=== PATIENT | male | born 1980 | race Caucasian/White ===

== ENCOUNTER → 2016-11-23 | Outpatient (CLI) | payer BC, OTHER ==
[~2016-11-23] MED LIST: ADVIN25/60 INH; CHOL20009 PO; FAMO20TA11 PO; FENO145T26 PO; FLUT50SP14 NAE; INSPMPNVLG; IPRASOL4 INH; LITH1TAB PO; LURA1TAB2 PO; MULT-506 PO; NVLGI SQ; PANC1CAP17 PO; POLY335040 PO; SRQ25 PO; SULF800T23 PO; SYN88
[2016-11-23 17:21] LABS: FERRITIN 84.1 ng/ml (8.0-388.0)
[2016-11-23 17:26] LABS: HEMATOCRIT 41.2 % (42-52)
[2016-11-23 17:48] LABS: URINE APPEARANCE CLEAR (CLEAR); URINE BILIRUBIN NEG (NEG); URINE COLOR YELLOW; URINE EPITHELIAL CELL AUTO 0-5 /lpf (0-5); URINE NITRITE NEG (NEG); URINE PH 6.5 (4.5-7.5); URINE SPECIFIC GRAVITY 1.002 (1.000-1.030); UROBILINOGEN NEG (NEG)
[2016-11-23 17:50] LABS: MANUAL MICROSCOPIC REQUIRED? NO; REVIEW REQ? NO
[2016-11-24 06:12] LABS: ESTIMATED AVERAGE GLUCOSE 189 mg/dl; HA1C FLAG Normal (Normal)
== END | disposition home or self-care (01) ==
LOC: C.LABBC 13:53
PROVIDERS: ATTEND Nurse Practitioner Adult Health
DX: E10.65 Type 1 diabetes mellitus with hyperglycemia (principal); E03.9 Hypothyroidism, unspecified; E06.3 Autoimmune thyroiditis; E55.9 Vitamin D deficiency, unspecified; E78.1 Pure hyperglyceridemia; D64.9 Anemia, unspecified; R35.0 Frequency of micturition

== ENCOUNTER → 2017-05-11 | Outpatient (CLI) | payer BC, OTHER ==
[2017-05-11 13:13] LABS: ESTIMATED AVERAGE GLUCOSE 180 mg/dl; HA1C FLAG Normal (Normal)
== END | disposition home or self-care (01) ==
LOC: C.LAB1850 10:51
PROVIDERS: ATTEND Nurse Practitioner Adult Health
DX: E10.649 Type 1 diabetes mellitus with hypoglycemia without coma (principal)

== ENCOUNTER → 2017-08-17 | Outpatient (CLI) | payer BC, OTHER ==
[2017-08-18 06:58] LABS: ESTIMATED AVERAGE GLUCOSE 157 mg/dl; HA1C FLAG Normal (Normal)
== END | disposition home or self-care (01) ==
LOC: C.LAB1850 16:03
PROVIDERS: ATTEND Nurse Practitioner Adult Health
DX: E10.649 Type 1 diabetes mellitus with hypoglycemia without coma (principal); E03.9 Hypothyroidism, unspecified; E06.3 Autoimmune thyroiditis

== ENCOUNTER → 2017-10-07 | Outpatient (CLI) | payer BC, OTHER | END | disposition home or self-care (01) | LOC: C.LABSPEC 13:09 | PROVIDERS: ATTEND Internal Medicine Pulmonary Disease | DX: E84.9 Cystic fibrosis, unspecified (principal); K86.89 Other specified diseases of pancreas; K90.9 Intestinal malabsorption, unspecified ==

== ENCOUNTER → 2017-10-15 | Outpatient (CLI) | payer BC, OTHER ==
[2017-10-15 13:03] LABS: BASO % 0.7 %; BASO ABS # 0.04 K/uL (0-0.2); EOS % 3.1 %; EOS ABS # 0.18 K/uL (0-0.5); HEMATOCRIT 43.6 % (42-52); HEMOGLOBIN 14.4 g/dL (14.0-18.0); LYMPH % 34.1 %; LYMPH ABS # 1.99 K/uL (1.2-3.4); MEAN CELL VOLUME 89.9 fL (80-100); MEAN CORPUSCULAR HEMOGLOBIN 29.7 pg (25-34); MEAN PLATELET VOLUME 10.4 fL (7.4-10.4); MONO % 6.3 %; MONO ABS # 0.37 K/uL (0.11-0.59); NEUT % 55.8 %; NEUT ABS # 3.25 K/uL (1.4-6.5); PLATELET COUNT 378 K/uL (130-400); RED CELL DISTRIBUTION WIDTH CV 13.1 % (11.5-14.5); RED CELL DISTRIBUTION WIDTH SD 42.4 fL (36.4-46.3); WHITE BLOOD COUNT 5.83 K/uL (4.8-10.8)
[2017-10-15 13:12] LABS: INR 1.1 (0.9-1.1)
[2017-10-15 13:18] LABS: HEMOGLOBIN A1C 6.8 % (4.5-5.6)
== END | disposition home or self-care (01) ==
LOC: C.LAB1850 10:49
PROVIDERS: ATTEND Internal Medicine Pulmonary Disease
DX: E84.9 Cystic fibrosis, unspecified (principal); K86.89 Other specified diseases of pancreas; K90.9 Intestinal malabsorption, unspecified

== ENCOUNTER → 2017-12-07 | Outpatient (CLI) | payer BC, OTHER ==
[2017-12-07 17:51] LABS: BLOOD UREA NITROGEN 10 mg/dl (7-18); CARBON DIOXIDE 21 mmol/L (21-32); CREATININE 1.33 mg/dl (0.60-1.40); GLUCOSE 230 mg/dl (70-99); POTASSIUM 3.8 mmol/L (3.5-5.1); SODIUM 137 mmol/L (136-145)
== END | disposition home or self-care (01) ==
LOC: C.LAB1850 16:40
PROVIDERS: ATTEND Psychiatry & Neurology Psychiatry
DX: Z79.899 Other long term (current) drug therapy (principal)

== ENCOUNTER → 2017-12-30 | Outpatient (CLI) | payer BC, OTHER | END | disposition home or self-care (01) | LOC: C.LAB1850 14:38 | PROVIDERS: ATTEND Psychiatry & Neurology Psychiatry | DX: Z79.899 Other long term (current) drug therapy (principal) ==

== ENCOUNTER → 2018-02-14 | Outpatient (CLI) | payer BC, OTHER ==
[2018-02-14 16:29] LABS: CREATININE RANDOM URINE 49.3 mg/dl
== END | disposition home or self-care (01) ==
LOC: C.LAB1850 14:09
PROVIDERS: ATTEND Nurse Practitioner Adult Health
DX: E10.9 Type 1 diabetes mellitus without complications (principal); E03.9 Hypothyroidism, unspecified

== ENCOUNTER 2019-10-20 12:34 | Inpatient (IN) ==
[2019-10-20] MEDS ORDERED: SODIUM CHLORIDE 0.9% 1000ML 1,000 ML IV SCH (13:00)
[2019-10-20] MEDS: MAGNESIUM SULFATE / D5W 1 GM/100 ML BAG IV SCH ×2 (13:25→14:30)
[2019-10-20] MEDS ORDERED: SODIUM BICARB 8.4% INJ 50 MEQ/50 ML SYR IV STA (13:29)
[2019-10-20 13:30] LABS: Basophils # (auto) 0.03 K/uL (0-0.2); Basophils % (auto) 0.6 %; Eosinophils # (auto) 0.08 K/uL (0-0.5); Eosinophils % (auto) 1.6 %; Hematocrit (blood only) 36.2 % (42-52); Hemoglobin 12.1 g/dL (14.0-18.0); Immature Granulocytes # (auto) 0.01 K/uL (0.00-0.02); Immature Granulocytes % (auto) 0.2 %; Lymphocytes # (auto) 1.39 K/uL (1.2-3.4); Lymphocytes % (auto) 28.3 %; Mean Corpuscular Hemoglobin 29.6 pg (25-34); Mean Corpuscular Hgb Conc 33.4 g/dL (32-36); Mean Corpuscular Volume 88.5 fL (80-100); Mean Platelet Volume 9.5 fL (7.4-10.4); Monocytes # (auto) 0.21 K/uL (0.11-0.59); Monocytes % (auto) 4.3 %; Platelet Count 252 K/uL (130-400); RDW Standard Deviation 41.9 fL (36.4-46.3); Red Blood Count 4.09 M/uL (4.7-6.1); White Blood Count 4.92 K/uL (4.8-10.8)
[2019-10-20] MEDS ORDERED: LORazepam 0.5 MG/1 ML VIAL IV STA (13:39)
[2019-10-20 13:40] LABS: Appearance Urine Clear (Clear); Bilirubin Urine Negative (Negative); Blood Urine Negative (Negative); Color Urine Yellow; Glucose Urine UA Negative (Negative); Ketones Urine Negative (Negative); Leukocyte Esterase Urine Trace (Negative); Nitrite Urine Negative (Negative); Protein Urine Negative (Negative); Specific Gravity Urine 1.005 (1.000-1.030); Urobilinogen Urine Negative (Negative)
[2019-10-20 13:59] LABS: Acetaminophen < 2 ug/ml (10-30); Salicylate 1.8 mg/dl (2.8-20)
[2019-10-20 14:00] LABS: Bacteria Urine Negative (Negative); Epithelial Cell Urine 0-5 /lpf (0-5); RBC Urine 0-4 /hpf (0-4)
[2019-10-20 14:01] LABS: Albumin Level 3.7 gm/dl (3.4-5.0); BUN Creatinine Ratio 10.5 (10-20); Calcium 9.7 mg/dl (8.5-10.1); Creatinine Clr Calc Pharmacy 101.8 ml/min; Est GFR (African American) 95.8; Est GFR (Non-African American) 82.6; Potassium 3.3 mmol/L (3.5-5.1)
[2019-10-20 14:04] LABS: Albumin Globulin Ratio 1.2 (0.9-2); Bilirubin,Total 0.3 mg/dl (0.2-1); Total Protein 6.7 gm/dl (6.4-8.2)
[2019-10-20 14:27] LABS: Amphetamines+Metham, Urine Neg (Neg); Barbiturates, Urine Neg (Neg); Benzodiazepine, Urine Neg (Neg); Cocaine, Urine Neg (Neg); MDMA (Ecstacy), Urine Pos (Neg); Methadone, Urine Neg (Neg); Opiate, Urine Neg (Neg); Phencyclidine, Urine Neg (Neg)
[2019-10-20] MEDS ORDERED: PNEUMOCOCCAL ADMINISTRATION CHARGE ONE (15:41)
[2019-10-20] MEDS ORDERED: PNEUMOCOCCAL POLYSACCHARIDES 25 MCG/0.5 ML VIAL/SYR IM ONE (15:41)
[2019-10-20] MEDS ORDERED: PHARMACY GLYCEMIC MGMT CONSULT STA (16:05)
--- NOTE | 2019-10-20 16:11 | History & Physical Report ---
Date of Service October 20, 2019 Assessment & Plan (1) Drug overdose: 400mg x 15 Seroquel. Intentional overdose after argument with his . Thought to have reached his peak of 3 hours in ER however when seen he was drowsy but with a gag reflex. On arrival to PCU patient had no gag reflex. Discussed with Dr Wilcox who evaluated patient at bedside and patient subsequently transferred to ICU. ABG. Half life 6 hours. Expected time till fully out of his system 30 hours. Discussed with poison control and plan to repeat EKG now and repeat Mg level after 2g Mg sulphate given. (2) Prolonged QT interval: QTc 571ms on admission secondary to multiple QTc prolonging psychiatric meds. Hold all QTc prolonging agents. Repeat EKG in AM. Aim Mg > 2, K > 4 (3) Suicide attempt: Consult psychiatry once awake. (4) Encephalopathy: Toxic encephalopathy secondary to Seroquel overdose. Appreciate ICU management of compromised airway since he no longer has a gag reflex. (5) Cystic fibrosis: At higher risk of PNA. Restart home meds once awake. (6) Controlled type 1 diabetes mellitus, with long-term current use of insulin: Currently on insulin pump 0.75 units/hr, 105 units left in pump. Consult pharmacy glycemic control for correction coverage. (7) Hypothyroidism: Continue levothyroxine once awake. Switch to IV if still altered in AM. (8) Major depression: Holding all medication at this time secondary to encephalopathy. (9) DVT prophylaxis: Young age. Expected short stay. SCDs (10) Discharge planning issues: Expected transfer to psychiatric abdi once medically stable due to intentional overdose. History of Present Illness Chief Complaint: Intentional overdose Primary Care Provider: Maxine Cortez MD Elio Arguelles is a 39 year old male with T1DM, cystic fibrosis, hypothyroidism, Bipolar disorder, Major depression and Schizoaffective disorder who presents to the ER due to intentional overdose of Seroquel after an argument with his . 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 He and his got in an argument about buying a truck today and the patient took approximately 15 pills of Seroquel 400mg around 11:30am. When he presented to the ER approximately 1 hour after taking the pills he was conversational. When patient seen by myself in the ER he was drowsy but rousable to pain. ER workup including positive urine MDMA (?due to wellbutrin), negative salicylates, acetaminophen and alcohol. Mild hypokalemia 3.3. Ativan was advised by human performance professor although this was held as patient became more drowsy. 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 Recently started Trikafta in September. Takes [place] (aztreonam) inhaler but not every day. Tobramycin only when sick. Alternates Keflex and Bactrim (unknown how often) for PNA prophylaxis. Zenpep 5-6 pills TID for pancreatic enzyme replacement. Noted history of small bowel obstruction. T1DM - has insulin pump running at 0.75 units/hr when seen. Continuous subcutaneous glucose monitor on left abdomen - does not automatically feed his insulin pump as per his . Major depression / Bipolar disorder - as above recently his depression has increased. Recently increased wellbutrin on Tuesday to help with this. Allergies Allergy/AdvReac Type Severity Reaction Status Date / Time No Known Allergies Allergy Verified 10/20/19 13:20 Home Medications Home Medications Medication Instructions Recorded Confirmed Type Novolog U-100 Insulin aspart 100 See Rx Instructions SQ DAILY 90 05/21/19 10/20/19 Rx unit/mL subcutaneous solution Days #9 vial NS cholecalciferol (vitamin D3) 125 5,000 units PO DAILY cap 08/13/19 10/20/19 History mcg (5,000 unit) capsule levothyroxine 75 mcg tablet 75 mcg PO DAILY tab 08/13/19 10/20/19 History multivitamin 1 tab PO DAILY 08/13/19 10/20/19 History bupropion HCl 300 mg PO DAILY 08/23/19 10/20/19 History cephalexin [Keflex] 500 mg PO BID 08/23/19 10/20/19 History famotidine 20 mg PO DAILY 08/23/19 10/20/19 History noasyg-zjsuitpw-tuniqju [Zenpep] 0 cap PO TIDM 08/23/19 10/20/19 History lithium carbonate [Lithobid] 300 mg PO QAM 08/23/19 10/20/19 History lithium carbonate [Lithobid] 600 mg PO HS 08/23/19 10/20/19 History lurasidone [Latuda] 160 mg PO HS 08/23/19 10/20/19 History quetiapine [Seroquel] 200 mg PO HS 08/23/19 10/20/19 History sulfamethoxazole-trimethoprim 1 tab PO Q12 08/23/19 10/20/19 History [Bactrim DS] varenicline [Chantix] 1 mg PO DAILY 08/23/19 10/20/19 History fenofibrate nanocrystallized 145 145 mg PO DAILY #90 tab 09/04/19 10/20/19 Rx mg tablet upahhejjgoa-rjopxrbabh-uxoslar 1 ea PO BID 10/20/19 10/20/19 History [Trikafta] Past Med/Surg History Medical History Bipolar disorder (Chronic) Controlled type 1 diabetes mellitus, with long-term current use of insulin Cystic fibrosis (Chronic) Diabetes (Acute) Hypercalcemia (Chronic) Hypertriglyceridemia (Chronic) Hypothyroidism (Chronic) Overweight (Chronic) Psychosis Schizoaffective disorder (Chronic) Small bowel obstruction (Acute) Strangulation of omentum (Acute) Ventral hernia (Acute) Surgical History No pertinent past surgical history Family History Mother Bipolar disorder Anxiety Hard of hearing Depression Cancer Hypertension Father Diabetes Hypertension Hard of hearing Lung cancer Brother Depression Grandfather Myocardial infarction Other No significant family history Social History Preferred Language: Nepali Communication Ability: sleeping Chain Puller Required: No Beliefs That Will Affect Care: None marital status: Current Living Situation: Spouse current occupational status: employed 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 Feels Safe at Home: Yes Smoking Status: Former smoker Age Started Using Tobacco: 15 ; Age Quit Using Tobacco: 34 ; packs per day: 1 ; Second Hand Exposure: No ; Hx Alcohol Use: No Hx Substance Use: Yes substance use type: prescription drug Substance Use Type Other:: overdose seroquel Last Used Substance: Just Prior to Arrival Review of Systems Review of Systems: Unobtainable due to reduced consciousness Physical Exam Constitutional: well developed and well nourished; no acute distress Eyes: PERRL, conjunctivae normal, anicteric sclerae ENMT: Ears: no external ear abnormality Nose: no external nose abnormality Mouth: + dry oral mucous membranes Neck: trachea midline and + thick neck; no tracheal deviation Respiratory: normal respiratory effort; no respiratory distress, no labored breathing, no retractions and does not use accessory muscles Auscultation: lungs clear to auscultation bilaterally; no diminished lung sounds, no crackles, no rales and no rhonchi Cardiovascular: RRR, no murmur, no edema Gastrointestinal (Abdomen): Inspection/Auscultation: abdomen normal to inspection (insulin pump on left, CGM on right), + abdomen distended ( reports at baseline) and normal bowel sounds; no abdominal wall ecchymosis Percussion/Palpation: abdomen soft; abdomen nontender, no guarding and abdomen not rigid Skin: no rashes, warm and dry Neurologic: awake (rousable to pain); no focal motor deficits Psychiatric: Orientation: alert (to pain); + not oriented x 3 Results & Data Vital Signs (Past 12 Hours) Vital Signs Temp Pulse Resp BP Pulse Ox 10/20/19 14:31 124 H 14 98 10/20/19 14:30 124 H 14 125/72 98 10/20/19 14:00 129 H 15 122/74 96 10/20/19 13:30 128 H 17 143/80 H 99 10/20/19 13:05 132 H 16 119/77 99 10/20/19 13:01 130 H 16 97 10/20/19 12:38 36.7 C 149 H 18 129/90 98 Code Status & VTE Plan Code Status Full VTE Prophylaxis Plan VTE Prophylaxis will be ordered: Yes Reason for no VTE drug order: Treatment not indicated PG Care Time/CCT Total # of Minutes Spent Total Time Spent with Patient: Total time spent is greater than 50% in coordination of care (as documented) at patient's floor/unit and/or counseling patient: Coding Level of Care Code 71764 Initial Inpt Care Lvl 3 Diagnoses Drug overdose T50.902A Encounter type: initial encounter Injury intent: intentional self-harm Prolonged QT interval R94.31 Suicide attempt T14.91XA Encephalopathy G93.40 Cystic fibrosis E84.9 Controlled type 1 diabetes mellitus, with long-term current use of insulin E10.9 Hypothyroidism E03.9 Hypothyroidism type: acquired Major depression F33.2 Active/Remission status: currently active Major depression episode severity: severe Major depression recurrence: recurrent Psychotic features: without psychotic features DVT prophylaxis Z29.9 Discharge planning issues Z02.9 (1) Major depression Active/Remission status: currently active Major depression episode severity: severe Major depression recurrence: recurrent Psychotic features: without psychotic features Qualified Code(s): F33.2 - Major depressive disorder, recurrent severe without psychotic features (2) Hypothyroidism Hypothyroidism type: acquired Qualified Code(s): E03.9 - Hypothyroidism, unspecified (3) Drug overdose Encounter type: initial encounter Injury intent: intentional self-harm Qualified Code(s): T50.902A - Poisoning by unspecified drugs, medicaments and biological substances, intentional self-harm, initial encounter
[2019-10-20] MEDS ORDERED: LACTATED RINGER'S 1,000 ML IV ONE (16:39)
[2019-10-20] MEDS ORDERED: PHARMACY GLYCEMIC MGMT CONSULT PRN (16:42)
--- NOTE | 2019-10-20 16:57 | Critical Care Consultation ---
Date of Consultation October 20, 2019 Assessment & Plan (1) Drug overdose: Impression: 39-year-old male with history of cystic fibrosis and associated diabetes admitted now with intentional Seroquel overdose. Transferred to the ICU for altered mental status and observation. Recommendations: 1. Seroquel overdose: We will continue to monitor QTC. Supportive care at this point time. Avoid any other medications which may prolong QTC. The patient's blood gas suggest that he does not require urgent intubation. We will follow closely for respiratory depression. 2. History of cystic fibrosis. No respiratory issues currently other than respiratory depression. Will hold all of his medications pending improvement in his mental status. He will require psychiatry evaluation and custody pending mental health evaluation. Will place on suicide precautions as well. 3. Depression: Holding all antidepressants pending improvement in the patient's mental status. 4. Advised the patient's that if intubation should become necessary would likely only be a short-term thing. Hopefully we can support him without having to invoke invasive respiratory adjuvants. Above recommendations and plan were discussed with the patient's at bedside as well as with the admitting hospitalist service. Will observe in the ICU (2) Prolonged QT interval: (3) Suicide attempt: (4) Encephalopathy: History of Present Illness Attending Physician: Choco Reddy MD History of Present Illness Possible hospitalist service to evaluate this patient with Seroquel overdose and altered mental status. History is obtained from discussion with hospitalist as well as with the patient's at bedside. Patient is unable to provide any history due to being obtunded. Patient is a 39-year-old male with a history of cystic fibrosis and diabetes. He apparently had an intentional overdose of Seroquel earlier today. He apparently been in a verbal altercation with his . He had increasing depressive symptoms. His is quite clear that this was an intentional suicide attempt. He does have a history of depression. He has had issues from a GI standpoint with his cystic fibrosis and has had a Hollie as well as the previous G-tube. He has had issues with bowel obstruction. He is also had multiple admissions for his lung disease. He was recently started on ivacaftor combination therapy. He is on lithium Seroquel and Latuda as well. He alternates Keflex and Bactrim for prophylaxis of his lung issues. Patient's QTC on presentation was approximately 500. He was initially felt to be improving and admitted to the PCU. I was contacted by the hospitalist who noted the patient had sonorous respirations and a decreasing level of consciousness which prompted transfer to the ICU. On arrival to the ICU his blood gas showed a pH of 7.37 with a PCO2 34 and a PO2 of 69. Allergies Allergy/AdvReac Type Severity Reaction Status Date / Time No Known Allergies Allergy Verified 10/20/19 13:20 Home Medications Home Medications Medication Instructions Recorded Confirmed Type Novolog U-100 Insulin aspart 100 See Rx Instructions SQ DAILY 90 05/21/19 10/20/19 Rx unit/mL subcutaneous solution Days #9 vial NS cholecalciferol (vitamin D3) 125 5,000 units PO DAILY cap 08/13/19 10/20/19 History mcg (5,000 unit) capsule levothyroxine 75 mcg tablet 75 mcg PO DAILY tab 08/13/19 10/20/19 History multivitamin 1 tab PO DAILY 08/13/19 10/20/19 History bupropion HCl 300 mg PO DAILY 08/23/19 10/20/19 History cephalexin [Keflex] 500 mg PO BID 08/23/19 10/20/19 History famotidine 20 mg PO DAILY 08/23/19 10/20/19 History lisxhc-ukqblond-qhzatrk [Zenpep] 0 cap PO TIDM 08/23/19 10/20/19 History lithium carbonate [Lithobid] 300 mg PO QAM 08/23/19 10/20/19 History lithium carbonate [Lithobid] 600 mg PO HS 08/23/19 10/20/19 History lurasidone [Latuda] 160 mg PO HS 08/23/19 10/20/19 History quetiapine [Seroquel] 200 mg PO HS 08/23/19 10/20/19 History sulfamethoxazole-trimethoprim 1 tab PO Q12 08/23/19 10/20/19 History [Bactrim DS] varenicline [Chantix] 1 mg PO DAILY 08/23/19 10/20/19 History fenofibrate nanocrystallized 145 145 mg PO DAILY #90 tab 09/04/19 10/20/19 Rx mg tablet kxycqshhxoz-uwsicchswu-jzbsvlc 1 ea PO BID 10/20/19 10/20/19 History [Trikafta] Patient History Medical History Bipolar disorder (Chronic) Controlled type 1 diabetes mellitus, with long-term current use of insulin Cystic fibrosis (Chronic) Diabetes (Acute) Hypercalcemia (Chronic) Hypertriglyceridemia (Chronic) Hypothyroidism (Chronic) Overweight (Chronic) Psychosis Schizoaffective disorder (Chronic) Small bowel obstruction (Acute) Strangulation of omentum (Acute) Ventral hernia (Acute) Surgical History No pertinent past surgical history Family History Mother Bipolar disorder Anxiety Hard of hearing Depression Cancer Hypertension Father Diabetes Hypertension Hard of hearing Lung cancer Brother Depression Grandfather Myocardial infarction Other No significant family history Social History Preferred Language: Ecuadorean Communication Ability: sleeping Marble Carver Required: No Beliefs That Will Affect Care: None marital status: Current Living Situation: Spouse current occupational status: employed 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 Other Information That Helps Us Care for You: No Feels Safe at Home: Yes Safety Concerns: Feels Safe At This Time Smoking Status: Former smoker Age Started Using Tobacco: 15 ; Age Quit Using Tobacco: 34 ; packs per day: 1 ; Do You Dip or Chew Tobacco: No ; Second Hand Exposure: No ; Tobacco Cessation Education Requested by Patient: No Hx Alcohol Use: No Hx Substance Use: Yes substance use type: prescription drug Substance Use Type Other:: overdose seroquel Last Used Substance: Just Prior to Arrival Review of Systems Review of Systems: Unobtainable due to reduced consciousness Physical Exam Constitutional: well developed, + altered mental status and + lethargic Neck: trachea midline, no thyromegaly Respiratory: normal respiratory effort, lungs clear to auscultation Cardiovascular: RRR, no murmur, no edema Gastrointestinal (Abdomen): normal bowel sounds, soft, nontender, no hepatosplenomegaly Musculoskeletal: Extremities: extremities normal to inspection Skin: no rashes, warm and dry Neurologic: Nonfocal exam Lymphatic: no cervical lymphadenopathy Results & Data Vital Signs (Past 12 Hours) Vital Signs Temp Pulse Pulse Resp BP BP Pulse Ox 10/20/19 16:00 123 H 18 122/75 98 10/20/19 14:31 124 H 14 98 10/20/19 14:30 124 H 14 125/72 98 10/20/19 14:00 129 H 15 122/74 96 10/20/19 13:30 128 H 17 143/80 H 99 10/20/19 13:05 132 H 16 119/77 99 10/20/19 13:01 130 H 16 97 10/20/19 12:38 36.7 C 149 H 18 129/90 98 Laboratory Results 10/20/19 13:12 10/20/19 13:12 Diagnostic Findings No imaging Coding Level of Care Code Critical Care 1st 30-74 mins Diagnoses Drug overdose T50.902A Encounter type: initial encounter Injury intent: intentional self-harm Prolonged QT interval R94.31 Suicide attempt T14.91XA Encephalopathy G93.40 Time Spent (min) 40 Comment 40 minutes critical care time evaluating managing and stabilizing critically ill patient with significant possibility of clinical deterioration (1) Drug overdose Encounter type: initial encounter Injury intent: intentional self-harm Qualified Code(s): T50.902A - Poisoning by unspecified drugs, medicaments and biological substances, intentional self-harm, initial encounter
[2019-10-20] MEDS ORDERED: LIPASE PROTEASE AMYLASE PO SCH (17:00)
--- NOTE | 2019-10-20 17:03 | Emergency Department Note ---
Entered by Rolando Yates acting as a scribe for History of Present Illness General Chief complaint: Overdose (Intentional) Stated complaint: TOOK WHOLE BOTTLE OF PILLS Time Seen by Provider: 10/20/19 12:45 Source: patient and family History of Present Illness Onset (ago): hour(s) 1 Quality: + other (intentional Seroquel overdose) Exacerbated By: + other (arguing with ) Associated symptoms: + denies other symptoms (current pain, fevers, recent illness, alcohol use, drug use, and cutting himself) and + other (heavy legs, thought of slurred speech, lightheaded) The patient is a 39 y/o male who presents to the ED w/ CC of an intentional Seroquel overdose that occurred one hour ago. The patient's states he is going through some tough times and thinks he needs some changes to his medication. She reports he was evaluated by his PCP and had his Wellbutrin incre ased. She states the increased medication was helping with his mood swings this week, but he is still having them. The notes he was really upset earlier today when they were talking about getting a truck. She states he then took a bunch of Seroquel pills. The patient reports he took the medication about an hour prior to arrival. He notes he took about 16, 400mg Seroquel pills and is not sure if they are XR or not. The patient states at the time he did want to hurt himself, but he currently does not want to hurt himself. He reports he is currently lightheaded with heavy legs. He states the last time he tried to hurt himself was 10-15 years ago. The patient denies current pain, fevers, recent illness, alcohol use, drug use, and cutting himself. Home Medications Home Medications Medication Instructions Recorded Confirmed Type Novolog U-100 Insulin aspart 100 See Rx Instructions SQ DAILY 90 05/21/19 10/20/19 Rx unit/mL subcutaneous solution Days #9 vial NS cholecalciferol (vitamin D3) 125 5,000 units PO DAILY cap 08/13/19 10/20/19 History mcg (5,000 unit) capsule levothyroxine 75 mcg tablet 75 mcg PO DAILY tab 08/13/19 10/20/19 History multivitamin 1 tab PO DAILY 08/13/19 10/20/19 History bupropion HCl 300 mg PO DAILY 08/23/19 10/20/19 History cephalexin [Keflex] 500 mg PO BID 08/23/19 10/20/19 History famotidine 20 mg PO DAILY 08/23/19 10/20/19 History kgsbyv-ikykobly-akrncvz [Zenpep] 0 cap PO TIDM 08/23/19 10/20/19 History lithium carbonate [Lithobid] 300 mg PO QAM 08/23/19 10/20/19 History lithium carbonate [Lithobid] 600 mg PO HS 08/23/19 10/20/19 History lurasidone [Latuda] 160 mg PO HS 08/23/19 10/20/19 History quetiapine [Seroquel] 200 mg PO HS 08/23/19 10/20/19 History sulfamethoxazole-trimethoprim 1 tab PO Q12 08/23/19 10/20/19 History [Bactrim DS] varenicline [Chantix] 1 mg PO DAILY 08/23/19 10/20/19 History fenofibrate nanocrystallized 145 145 mg PO DAILY #90 tab 09/04/19 10/20/19 Rx mg tablet siqabavaxah-djrckqqvqo-otzzsdz 1 ea PO BID 10/20/19 10/20/19 History [Trikafta] Allergies Allergy/AdvReac Type Severity Reaction Status Date / Time No Known Allergies Allergy Verified 10/20/19 13:20 Past Med/Surg History Medical History Bipolar disorder (Chronic) Controlled type 1 diabetes mellitus, with long-term current use of insulin Cystic fibrosis (Chronic) Diabetes (Acute) Hypercalcemia (Chronic) Hypertriglyceridemia (Chronic) Hypothyroidism (Chronic) Overweight (Chronic) Psychosis Schizoaffective disorder (Chronic) Small bowel obstruction (Acute) Strangulation of omentum (Acute) Ventral hernia (Acute) Surgical History No pertinent past surgical history Family History Mother Bipolar disorder Anxiety Hard of hearing Depression Cancer Hypertension Father Diabetes Hypertension Hard of hearing Lung cancer Brother Depression Grandfather Myocardial infarction Other No significant family history Social History Preferred Language: Kinyarwanda Communication Ability: sleeping Biofuels Processing Technician Required: No Beliefs That Will Affect Care: None marital status: Current Living Situation: Spouse current occupational status: employed current occupation: [employer] Other Information That Helps Us Care for You: No Feels Safe at Home: Yes Safety Concerns: Feels Safe At This Time Smoking Status: Former smoker Age Started Using Tobacco: 15 ; Age Quit Using Tobacco: 34 ; packs per day: 1 ; Do You Dip or Chew Tobacco: No ; Second Hand Exposure: No ; Tobacco Cessation Education Requested by Patient: No Hx Alcohol Use: No Hx Substance Use: Yes substance use type: prescription drug Substance Use Type Other:: overdose seroquel Last Used Substance: Just Prior to Arrival Review of Systems See HPI for pertinent positives & negatives. and A total of 10 systems reviewed and were otherwise negative Physical Exam Vital Signs Vital Signs - 24 hr 10/20/19 12:38 10/20/19 13:01 10/20/19 13:05 Temperature 36.7 C Temperature Source Oral Pulse Rate 149 H 130 H 132 H Pulse Rate from SpO2 Sensor 132 H Pulse Rhythm Regular Respiratory Rate 18 16 16 Respiratory Effort / Characteristics Non-Labored Spontaneous Respiratory Depth Normal Blood Pressure 129/90 119/77 Blood Pressure Mean 103 89 Pulse Oximetry 98 97 99 Oxygen Delivery Method Room Air Room Air Room Air Sepsis Recent Fever Within 48 Hours No Sepsis Action Taken by Nursing No Action Required 10/20/19 13:30 10/20/19 14:00 10/20/19 14:30 Temperature Temperature Source Pulse Rate 128 H 129 H 124 H Pulse Rate from SpO2 Sensor 128 H 129 H 124 H Pulse Rhythm Respiratory Rate 17 15 14 Respiratory Effort / Characteristics Respiratory Depth Blood Pressure 143/80 H 122/74 125/72 Blood Pressure Mean 91 94 86 Pulse Oximetry 99 96 98 Oxygen Delivery Method Room Air Room Air Room Air Sepsis Recent Fever Within 48 Hours Sepsis Action Taken by Nursing 10/20/19 14:31 Temperature Temperature Source Pulse Rate 124 H Pulse Rate from SpO2 Sensor 125 H Pulse Rhythm Respiratory Rate 14 Respiratory Effort / Characteristics Respiratory Depth Blood Pressure Blood Pressure Mean Pulse Oximetry 98 Oxygen Delivery Method Sepsis Recent Fever Within 48 Hours Sepsis Action Taken by Nursing Constitutional: Vital signs reviewed. Eyes: Pupils are equal round reactive to light. Conjunctiva are noninjected. ENT: Pharynx is clear without erythema or exudate. Mucous membranes are moist. Neck supple without meningeal signs. Respiratory: Clear to auscultation bilaterally. Breath sounds are equal bilaterally. Cardiovascular: Tachycardic rate and regular rhythm. No rubs or gallops. GI: Soft, nondistended and nontender. Bowel sounds are present. Musculoskeletal: No peripheral edema. No lower extremity tenderness. Integumentary: No cyanosis. Neurological: The patient is awake and alert. No focal deficits. Psychiatric: Guarded affect and anxious appearing. Course Course 1247: Past medical records reviewed. The patient was evaluated in room A08. A complete history and physical exam was performed. 1315: I discussed the patient's case with [facility]. I was a dvised to give the patient IV magnesium for the QTc prolongation. 1321: I reevaluated the patient. He does not feel anxious and did not take anything besides the Seroquel. I discussed the consult and treatment plan. 1327: I called Poison Control back and requested to speak with a flower grader about the patient's EKG. 1329: I spoke with Dr. Steele, Poison Control. She recommends I wait until the p atient's interval reaches 120ms before treated him with bicarb. She notes I should manage the patient's symptoms with benzos and fluids for now. 1428: The patient is sleeping. His heart rate is 124 and normotensive. The Ativan was held due to the patient's somnolence and snoring respirations. I dis cussed his results with the and the treatment plan for admission as well as the flower grader recommendation. The patient and are in agreement with the plan. 1429: I reviewed the patient's case with Dr. Ferrell, [facility] Hospitalist. She will evaluate the patient for further management. 1519: I reevaluated the patient. He is sleeping with a heart rate of 120 and a stable blood pressure. Dr. Reddy has assessed the patient, and he will transferred to the PCU. Administered Medications Discontinued Medications Sodium Chloride (Nss 1000ml) 1,000 mls @ 999 mls/hr IV .Q1H1M JAVIER Stop: 10/20/19 14:00 Last Infusion: 10/20/19 14:18 Dose: 0 mls/hr Documented by: [id number] Admin: 10/20/19 13:16 Dose: 999 mls/hr Documented by: [id number] Magnesium Sulfate/Dextrose (Magnesium Sulfate / D5w) 1 gm in 100 mls @ 100 mls/hr IV Q1H JAVIER Stop: 10/20/19 15:29 Last Infusion: 10/20/19 16:07 Dose: 0 mls/hr Documented by: [id number] Admin: 10/20/19 14:30 Dose: 100 mls/hr Documented by: [id number] Infusion: 10/20/19 14:30 Dose: 0 mls/hr Documented by: [id number] Admin: 10/20/19 13:25 Dose: 100 mls/hr Documented by: [id number] Lorazepam (Ativan) 0.5 mg in 1 mls @ 1 mls/min IV NOW STA Stop: 10/20/19 13:40 Last Admin: 10/20/19 16:04 Dose: Not Given Documented by: [id number] Sodium Bicarbonate (Sodium Bicarbonate 8.4%) 50 meq IV NOW STA Stop: 10/20/19 13:30 Last Admin: 10/20/19 13:32 Dose: 50 meq Documented by: [id number] Critical Care Time Critical Care Time: Yes Total Critical Care Time: 40 I have personally spent 40 minutes of critical care time in the direct management of this patient. This includes bedside care, interpretation of diagnostic studies, and testing, discussion with consultants, patient, and family members, and other required patient management activities. This 40 minutes is in excess of all separately billable procedures. Medical Decision Making Differential Diagnosis Differential diagnosis includes: overdose, suicide attempt, mood disorder, alcohol dependence, drug dependence, anxiety. Medical Records Attestation: I reviewed the patient's medical records. I did perform a limited focused review of portions of the patient's old chart on the electronic medical record. The patient has had no recent pertinent visits to this hospital. Home Medications Current Medication List: was personally reviewed by me Laboratory Data Attestation: I reviewed the patient's lab results. Result diagrams: 10/20/19 13:12 10/20/19 13:12 Lab Results 10/20/19 10/20/19 10/20/19 Range/Units 12:48 12:48 13:12 WBC (4.8-10.8) K/uL RBC (4.7-6.1) M/uL Hgb (14.0-18.0) g/dL Hct (42-52) % MCV (80-100) fL MCH (25-34) pg MCHC (32-36) g/dL RDW Std Deviation (36.4-46.3) fL RDW Coeff of Jake (11.5-14.5) % Plt Count (130-400) K/uL MPV (7.4-10.4) fL Immature Gran % (Auto) % Neut % (Auto) % Lymph % (Auto) % [place] % (Auto) % Eos % (Auto) % Baso % (Auto) % Immature Gran # (Auto) (0.00-0.02) K/uL Neut # (Auto) (1.4-6.5) K/uL Lymph # (Auto) (1.2-3.4) K/uL [place] # (Auto) (0.11-0.59) K/uL Eos # (Auto) (0-0.5) K/uL Baso # (Auto) (0-0.2) K/uL Sodium 136 (136-145) mmol/L Potassium 3.3 L (3.5-5.1) mmol/L Chloride 108 H (98-107) mmol/L Carbon Dioxide 22 (21-32) mmol/L Anion Gap 6.0 (3-11) BUN 12 (7-18) mg/dl Creatinine 1.11 (0.6-1.4) mg/dl Est Cr Clr Drug Dosing 101.8 ml/min Est GFR ( Amer) 95.8 Est GFR (Non-Af Amer) 82.6 BUN/Creatinine Ratio 10.5 (10-20) Glucose 158 H (70-99) mg/dl Calcium 9.7 (8.5-10.1) mg/dl Total Bilirubin 0.3 (0.2-1) mg/dl AST 14 L (15-37) U/L ALT 26 (12-78) U/L Alkaline Phosphatase 91 (45-117) U/L Total Protein 6.7 (6.4-8.2) gm/dl Albumin 3.7 (3.4-5.0) gm/dl Globulin 3.0 (2.5-4.0) gm/dl Albumin/Globulin Ratio 1.2 (0.9-2) Urine Color Yellow Urine Appearance Clear (Clear) Urine pH 7.0 (4.5-7.5) Ur Specific [place] 1.005 (1.000-1.030) Urine Protein Negative (Negative) Urine Glucose (UA) Negative (Negative) Urine Ketones Negative (Negative) Urine Blood Negative (Negative) Urine Nitrite Negative (Negative) Urine Bilirubin Negative (Negative) Urine Urobilinogen Negative (Negative) Ur Leukocyte Esterase Trace H (Negative) Urine RBC 0-4 (0-4) /hpf Urine WBC 5-10 H (0-5) /hpf Ur Epithelial Cells 0-5 (0-5) /lpf Urine Bacteria Negative (Negative) Salicylates (2.8-20) mg/dl Urine Opiates Screen Neg (Neg) Ur Methadone, Qual Neg (Neg) Acetaminophen (10-30) ug/ml Urine Barbiturates Neg (Neg) Ur Phencyclidine (PCP) Neg (Neg) U Amphetamin/Meth Scrn Neg (Neg) MDMA (Ecstasy) Screen Pos H (Neg) U Benzodiazepines Scrn Neg (Neg) Ur Cocaine Metabolite Neg (Neg) U Marijuana (THC) Screen Neg (Neg) Ethyl Alcohol mg/dL (0-3) mg/dl 10/20/19 10/20/19 10/20/19 Range/Units 13:12 13:12 13:12 WBC 4.92 (4.8-10.8) K/uL RBC 4.09 L (4.7-6.1) M/uL Hgb 12.1 L (14.0-18.0) g/dL Hct 36.2 L (42-52) % MCV 88.5 (80-100) fL MCH 29.6 (25-34) pg MCHC 33.4 (32-36) g/dL RDW Std Deviation 41.9 (36.4-46.3) fL RDW Coeff of Jake 13.0 (11.5-14.5) % Plt Count 252 (130-400) K/uL MPV 9.5 (7.4-10.4) fL Immature Gran % (Auto) 0.2 % Neut % (Auto) 65.0 % Lymph % (Auto) 28.3 % [place] % (Auto) 4.3 % Eos % (Auto) 1.6 % Baso % (Auto) 0.6 % Immature Gran # (Auto) 0.01 (0.00-0.02) K/uL Neut # (Auto) 3.20 (1.4-6.5) K/uL Lymph # (Auto) 1.39 (1.2-3.4) K/uL [place] # (Auto) 0.21 (0.11-0.59) K/uL Eos # (Auto) 0.08 (0-0.5) K/uL Baso # (Auto) 0.03 (0-0.2) K/uL Sodium (136-145) mmol/L Potassium (3.5-5.1) mmol/L Chloride (98-107) mmol/L Carbon Dioxide (21-32) mmol/L Anion Gap (3-11) BUN (7-18) mg/dl Creatinine (0.6-1.4) mg/dl Est Cr Clr Drug Dosing ml/min Est GFR ( Amer) Est GFR (Non-Af Amer) BUN/Creatinine Ratio (10-20) Glucose (70-99) mg/dl Calcium (8.5-10.1) mg/dl Total Bilirubin (0.2-1) mg/dl AST (15-37) U/L ALT (12-78) U/L Alkaline Phosphatase (45-117) U/L Total Protein (6.4-8.2) gm/dl Albumin (3.4-5.0) gm/dl Globulin (2.5-4.0) gm/dl Albumin/Globulin Ratio (0.9-2) Urine Color Urine Appearance (Clear) Urine pH (4.5-7.5) Ur Specific [place] (1.000-1.030) Urine Protein (Negative) Urine Glucose (UA) (Negative) Urine Ketones (Negative) Urine Blood (Negative) Urine Nitrite (Negative) Urine Bilirubin (Negative) Urine Urobilinogen (Negative) Ur Leukocyte Esterase (Negative) Urine RBC (0-4) /hpf Urine WBC (0-5) /hpf Ur Epithelial Cells (0-5) /lpf Urine Bacteria (Negative) Salicylates 1.8 L (2.8-20) mg/dl Urine Opiates Screen (Neg) Ur Methadone, Qual (Neg) Acetaminophen < 2 L (10-30) ug/ml Urine Barbiturates (Neg) Ur Phencyclidine (PCP) (Neg) U Amphetamin/Meth Scrn (Neg) MDMA (Ecstasy) Screen (Neg) U Benzodiazepines Scrn (Neg) Ur Cocaine Metabolite (Neg) U Marijuana (THC) Screen (Neg) Ethyl Alcohol mg/dL < 3.0 (0-3) mg/dl ECG Data Attestation: I personally reviewed and interpreted this ECG as follows: Indication: + toxicologic Rate (beats per minute): 130 Rhythm: + sinus tachycardia ECG Intervals/blocks: + Incomplete right bundle branch block ECG ST segments: no ST elevation ECG Findings: + Other (NM 96ms, QRS 102ms, QTc 579ms, terminal R in AVR) Additional Comments: REPEAT EKG IN THE SAME ED VISIT: Sinus tachycardia with a rate of 129. QTc of 571. QRS of 104. Persistent terminal R in AVR. Blood Pressure Blood Pressure Findings: Elevated blood pressure Blood Pressure Disposition: further management by hospitalist [facility] Catina I did evaluate the patient as noted above. The patient is presenting after an intentional drug overdose after getting into an argument with his . He took 16 tablets of 400 mg Seroquel. He feels drowsy at this time. He is awake and alert currently. He has a flat affect and states he is no longer suicidal. IV access was established. The patient was placed on a continuous pvc monitor. I did order and personally review the patient's 12-lead EKG as described above. His twelve-lead EKG demonstrates QT prolongation as well as a QRS of 104 ms and a terminal R in lead aVR. I therefore treated the patient with magnesium 2 g IV and 1 amp of sodium bicarbonate. I did repeat the twelve-lead EKG which shows persistent QT prolongation and similar findings as noted above. I did speak to the flower grader at poison control who stated that she would not be worried about the QRS until it went above 120 ms. She was in agreement with the magnesium. She recommended benzos to bring his heart rate down. I did order a small dose of Ativan 0.5 mg IV but the patient was somnolent and snoring and so we did not administer this. He was given a liter normal saline IV. I did order and review the patient's blood work as noted in the electronic medical record. He has mild anemia. Potassium is 3.3. Renal function is unremarkable. Alcohol and acetaminophen and salicylate levels are negative. I did reassess the patient several times. I did talk to the about the plan and recommendations by poison control. I did discuss the case with the hospitalist and keycase assembler. Impression & Plan Drug overdose, Anticholinergic syndrome, Prolonged QT interval, Suicide attempt, Mood disorder Discharge Plan Visit Data Chief Complaint: Overdose (Intentional) Stated Complaint: TOOK WHOLE BOTTLE OF PILLS ED Provider: Roosevelt Schultz Discharge Problem: Drug overdose, Anticholinergic syndrome, Prolonged QT interval, Suicide att empt, Mood disorder Patient Disposition: Being Evaluated by Hospitalist Discharge Instructions Interventions: ED Discharge Assessment Last Done: 10/20/19 16:11 Discharge Problem: Drug overdose Qualifiers: Encounter type: initial encounter Injury intent: intentional self-harm Qualified Code(s): T50.902A - Poisoning by unspecified drugs, medicaments and biological substances, intentional self-harm, initial encounter Anticholinergic syndrome Qualifiers: Encounter type: initial encounter Injury intent: intentional self-harm Qualified Code(s): T44.3X2A - Poisoning by other parasympatholytics [anticholinergics and antimuscarinics] and spasmolytics, intentional self-harm, initial encounter The scribe's documentation has been prepared under my direction and personally reviewed by me in its entirety. I confirm that the note above accurately reflects all work, treatment, procedures, and medical decision making performed by me.
[2019-10-20] MEDS ORDERED: INSULIN ASPART 100 UNITS/ML VIAL SC PRN (17:15)
[2019-10-20] MEDS ORDERED: GLUCOSE 40% GEL 15 GM TUBE PO PRN (17:15)
[2019-10-20] MEDS ORDERED: GLUCOSE 10 TABS/TUBE PO PRN (17:15)
[2019-10-20] MEDS ORDERED: GLUCAGON FOR INJ 1 MG VIAL SQ PRN (17:15)
[2019-10-20] MEDS ORDERED: DEXTROSE 50% 50 ML SYRINGE IV PRN (17:15)
[2019-10-20] MEDS ORDERED: CARBOHYDRATES FOR HYPOGLYCEMIA PO PRN (17:15)
[2019-10-20] MEDS ORDERED: ICU PROTOCOL FOR HYPERGLYCEMIA PRN (17:43)
[2019-10-20] MEDS ORDERED: NURSING ICU ELECTROLYTE ORDER ONE (17:45)
[2019-10-20] MEDS: NovoLOG INSULIN PUMP SCH ×2 (18:03→21:36)
[2019-10-20] MEDS: ICU ELECTROLYTE REPLACEMENT PROTOCOL SCH (18:03)
[2019-10-20] MEDS: POTASSIUM CHLORIDE / WTR 10 MEQ/100 ML PLCT IV SCH ×4 (18:39→21:35)
[2019-10-20] MEDS: LACTATED RINGER'S 1,000 ML IV SCH (18:40)
--- NOTE | 2019-10-20 20:22 | Electrocardiogram Report ---
Test Reason : Blood Pressure : / mmHG Vent. Rate : 130 BPM Atrial Rate : 130 BPM P-R Int : 096 ms QRS Dur : 102 ms QT Int : 394 ms P-R-T Axes : 000 -07 042 degrees QTc Int : 579 ms Sinus tachycardia Incomplete right bundle branch block Nonspecific ST and T wave abnormality Abnormal ECG When compared with ECG of 09-OCT-2015 13:48, Vent. rate has increased BY [address] now depressed in Anterolateral leads Nonspecific T wave abnormality, worse in Lateral leads Confirmed by Jacek Ann ([id number]) on 10/20/2019 8:21:58 PM Referred By: ER Confirmed By:Gomez Ann
--- NOTE | 2019-10-20 20:23 | Electrocardiogram Report ---
Test Reason : Blood Pressure : / mmHG Vent. Rate : 129 BPM Atrial Rate : 129 BPM P-R Int : 112 ms QRS Dur : 104 ms QT Int : 390 ms P-R-T Axes : 000 -06 044 degrees QTc Int : 571 ms Sinus tachycardia Incomplete right bundle branch block Nonspecific ST and T wave abnormality Abnormal ECG When compared with ECG of 20-OCT-2019 13:01, (unconfirmed) No significant change was found Confirmed by Jacek Ann ([id number]) on 10/20/2019 8:23:17 PM Referred By: REFERRED SELF Confirmed By:Gomez Ann
[2019-10-20] MEDS ORDERED: [UNRECOGNIZED DRUG - OTHER] INH SCH (21:00)
[2019-10-21] MEDS: NovoLOG INSULIN PUMP SCH ×3 (02:41→09:00)
[2019-10-21] MEDS ORDERED: LORazepam 0.5 MG/1 ML VIAL IV STA (02:58)
[2019-10-21 04:38] LABS: Basophils # (auto) 0.02 K/uL (0-0.2); Basophils % (auto) 0.3 %; Eosinophils # (auto) 0.08 K/uL (0-0.5); Eosinophils % (auto) 1.2 %; Hematocrit (blood only) 35.7 % (42-52); Immature Granulocytes # (auto) 0.02 K/uL (0.00-0.02); Immature Granulocytes % (auto) 0.3 %; Lymphocytes # (auto) 1.39 K/uL (1.2-3.4); Lymphocytes % (auto) 20.9 %; Mean Corpuscular Hemoglobin 29.7 pg (25-34); Mean Corpuscular Hgb Conc 33.6 g/dL (32-36); Mean Corpuscular Volume 88.4 fL (80-100); Mean Platelet Volume 9.6 fL (7.4-10.4); Monocytes % (auto) 4.5 %; Neutrophils # (auto) 4.83 K/uL (1.4-6.5); Neutrophils % (auto) 72.8 %; Platelet Count 281 K/uL (130-400); RDW Coefficient of Variation 13.1 % (11.5-14.5); RDW Standard Deviation 43.1 fL (36.4-46.3); Red Blood Count 4.04 M/uL (4.7-6.1); White Blood Count 6.64 K/uL (4.8-10.8)
[2019-10-21 04:59] LABS: Calcium 9.1 mg/dl (8.5-10.1); Est GFR (African American) 115.6; Est GFR (Non-African American) 99.7; Magnesium 1.8 mg/dl (1.8-2.4); Potassium 3.7 mmol/L (3.5-5.1)
[2019-10-21 05:00] LABS: Phosphorus 2.8 mg/dl (2.5-4.9)
[2019-10-21] MEDS ORDERED: MAGNESIUM SULFATE / D5W 1 GM/100 ML BAG IV ONE ×2 (06:08)
[2019-10-21] MEDS ORDERED: LEVOTHYROXINE SODIUM 75 MCG TABLET PO SCH (06:30)
[2019-10-21] MEDS: LACTATED RINGER'S 1,000 ML IV SCH ×2 (06:42→08:13)
--- NOTE | 2019-10-21 07:53 | Critical Care Progress Note ---
Date of Service October 21, 2019 Assessment & Plan (1) Drug overdose: Impression: 39-year-old male with history of cystic fibrosis and associated diabetes admitted now with intentional Seroquel overdose. Transferred to the ICU for altered mental status and observation. Recommendations: 1. Seroquel overdose: QTC correcting. The patient's mental status has improved as expected. He is okay to return back to the floor under the care of the hospitalist. 2. History of cystic fibrosis. No respiratory issues. Okay to continue/restart his outpatient medications 3. Depression: Defer meds to psychiatry 4. Discontinue condom catheter. Advance diet. Out of bed as tolerated. The patient can transfer out of the ICU back to the floor under the care of the hospitalist. Will sign off once he leaves the ICU. Please contact us if we can be of additional assistance (2) Prolonged QT interval: (3) Suicide attempt: (4) Encephalopathy: Subjective No issues overnight. As expected the patient's mental status has improved. He is oriented to person place and time but speech continues to be somewhat tangential and pressured. He has been hemodynamically stable. His QTC has corrected. Review of Systems Review of Systems: All systems reviewed & are unremarkable except as noted in HPI & below Physical Exam Constitutional: WD/WN, vitals as above Neck: trachea midline, no thyromegaly Respiratory: normal respiratory effort, lungs clear to auscultation Cardiovascular: RRR, no murmur, no edema Gastrointestinal (Abdomen): normal bowel sounds, soft, nontender, no hepatosplenomegaly Musculoskeletal: Extremities: extremities normal to inspection Skin: no rashes, warm and dry Lymphatic: no cervical lymphadenopathy Results & Data Vital Signs (Past 12 Hours) Vital Signs Temp Pulse Pulse Resp BP Pulse Ox 10/21/19 06:00 105 H 16 141/89 H 100 10/21/19 05:00 102 H 16 127/93 100 10/21/19 04:00 96 H 17 140/98 99 10/21/19 03:00 99 H 19 130/98 100 10/21/19 02:00 96 H 20 118/95 95 10/21/19 01:00 99 H 18 123/94 92 10/21/19 00:00 100 H 96 H 20 123/96 99 10/20/19 23:00 36.8 C 100 H 17 135/69 98 10/20/19 22:00 99 H 18 118/93 95 10/20/19 21:00 99 H 18 142/83 H 95 10/20/19 20:00 115 H 112 H 14 120/85 97 Laboratory Results 10/21/19 04:12 10/21/19 04:12 Diagnostic Findings No new films Coding Level of Care Code 86931 Subseq Hosp Care Lvl 2 Diagnoses Drug overdose T50.902A Encounter type: initial encounter Injury intent: intentional self-harm Prolonged QT interval R94.31 Suicide attempt T14.91XA Encephalopathy G93.40 (1) Drug overdose Encounter type: initial encounter Injury intent: intentional self-harm Qualified Code(s): T50.902A - Poisoning by unspecified drugs, medicaments and biological substances, intentional self-harm, initial encounter
[2019-10-21] MEDS: ICU ELECTROLYTE REPLACEMENT PROTOCOL SCH (08:49)
[2019-10-21] MEDS: POTASSIUM CHLORIDE 20 MEQ TABCR PO SCH ×2 (09:18→11:50)
--- NOTE | 2019-10-21 09:19 | Hospitalist Progress Note ---
Date of Service October 21, 2019 Assessment & Plan (1) Drug overdose: 400mg x 15 Seroquel. Intentional overdose after argument with his . Patient now awake but still not back to baseline. Will be medically stable if EKG normal at 30 hours (approximately 6pm, however since keeping overnight will just repeat in AM). Poison control recommended medically stable if QTc < 500ms. Plan to keep overnight in PCU due to cystic fibrosis and T1DM to make sure stable and patient can manage his own insulin pump. (2) Prolonged QT interval: Improving QTc (503 ms) and QRS on EKG this morning. Aim Mg > 2, K > 4 (3) Suicide attempt: Consult psychiatry, will be mostly back to his baseline this afternoon. (4) Encephalopathy: Toxic encephalopathy secondary to Seroquel overdose, expected to be back to his baseline this afternoon. (5) Cystic fibrosis: At higher risk of PNA. Restart home meds - ipratropium bromide neb BID, h ypertonic saline nebulizer BID. His will bring in home Abx nebs - if unable to take we can always use tobramycin. (6) Controlled type 1 diabetes mellitus, with long-term current use of insulin: Discussed with pharmacy. Remove insulin pump as patient unable to operate this himself and family member will not be with him tonight to manage this. Will switch to basal bolus regimen. Insulin pump settings: basal 0.75 units/hr, correction 70, carb ratio 1:20. Will need close monitoring of BSG - advise at midnight and 4am in addition to ACHS. (7) Hypothyroidism: Continue levothyroxine 75 mcg daily. (8) Major depression: Holding all medication at this time secondary to encephalopathy. Will defer re-introduction to psychiatry after 30 hours. [place] level notmal (9) DVT prophylaxis: Young age. Expected short stay, no chemical prophylaxis. SCDs removed as patient not safe with these on. (10) Discharge planning issues: Psychiatry to see today. Expected medical stability tomorrow. Subjective Patient awake this morning. Did not require intubation overnight. Still somewhat confused and making unusual statements such as "when do we pick the son". Appears to have conditioned himself to saying the time and place but not sure he is fully understanding the questions. EKG improved this morning. Denies any pain, nausea, headache, shortness of breath. Updated his over the phone and she will bring in his home meds. Review of Systems Review of Systems: All systems reviewed & are unremarkable except as noted in HPI & below Physical Exam Constitutional: well developed, + altered mental status, + disheveled, cooperative and + diaphoretic (mild); no acute distress Eyes: + anicteric sclerae; pupils not irregular ENMT: Ears: no external ear abnormality Nose: no external nose abnormality Mouth: + dry oral mucous membranes Neck: trachea midline and + thick neck; no tracheal deviation Respiratory: normal respiratory effort; no respiratory distress, no labored breathing, no retractions and does not use accessory muscles Auscultation: + crackles (mild coarse b/l equal); no diminished lung sounds, no rales and no rhonchi Cardiovascular: Rate/Rhythm: regular rhythm and + tachycardic Heart Sounds: no murmur Extremities: normal capillary refill; no calf tenderness and no pedal edema Gastrointestinal (Abdomen): Inspection/Auscultation: abdomen normal to inspection (insulin pump on left, CGM on right) and normal bowel sounds Percussion/Palpation: abdomen soft; abdomen nontender, no guarding and abdomen not rigid Skin: no rashes, warm and dry Neurologic: moves all extremities, awake and + confused; no focal motor deficits Speech / Cognition: + abnormal speech (at baseline, confirmed with later in afternoon) Motor/Sensory: no tremor and no pronator drift Psychiatric: Orientation: alert (to pain) and oriented x 3 (questionable as he gives anwers without me asking the question) Eye Contact: + fair eye contact Speech: normal rate/rhythm/volume of speech Affect: euthymic affect Lymphatic: no cervical or axillary lymphadenopathy Results & Data Vital Signs (Past 12 Hours) Vital Signs Temp Pulse Pulse Resp BP Pulse Ox 10/21/19 06:00 105 H 16 141/89 H 100 10/21/19 05:00 102 H 16 127/93 100 10/21/19 04:00 96 H 17 140/98 99 10/21/19 03:00 99 H 19 130/98 100 10/21/19 02:00 96 H 20 118/95 95 10/21/19 01:00 99 H 18 123/94 92 10/21/19 00:00 100 H 96 H 20 123/96 99 10/20/19 23:00 36.8 C 100 H 17 135/69 98 10/20/19 22:00 99 H 18 118/93 95 PG Care Time/CCT Total # of Minutes Spent Total Time Spent with Patient: Total time spent is greater than 50% in coordination of care (as documented) at patient's floor/unit and/or counseling patient: Coding Level of Care Code 49930 Subseq Hosp Care Lvl 3 Diagnoses Drug overdose T50.902A Encounter type: initial encounter Injury intent: intentional self-harm Prolonged QT interval R94.31 Suicide attempt T14.91XA Encephalopathy G93.40 Cystic fibrosis E84.9 Controlled type 1 diabetes mellitus, with long-term current use of insulin E10.9 Hypothyroidism E03.9 Hypothyroidism type: acquired Major depression F33.2 Active/Remission status: currently active Major depression episode severity: severe Major depression recurrence: recurrent Psychotic features: without psychotic features DVT prophylaxis Z29.9 Discharge planning issues Z02.9 (1) Major depression Active/Remission status: currently active Major depression episode severity: severe Major depression recurrence: recurrent Psychotic features: without psychotic features Qualified Code(s): F33.2 - Major depressive disorder, recurrent severe without psychotic features (2) Hypothyroidism Hypothyroidism type: acquired Qualified Code(s): E03.9 - Hypothyroidism, unspecified (3) Drug overdose Encounter type: initial encounter Injury intent: intentional self-harm Qualified Code(s): T50.902A - Poisoning by unspecified drugs, medicaments and biological substances, intentional self-harm, initial encounter
[2019-10-21] MEDS ORDERED: PANCREAZE (LIPASE 16,800U) CAP PO SCH (09:30)
[2019-10-21] MEDS ORDERED: PANCREAZE (LIPASE 10,500U) CAP PO SCH (09:30)
[2019-10-21] MEDS: IPRATROPIUM BROMIDE NEB SOLN 0.02% 2.5 ML VIAL NEB SCH ×2 (09:57→19:12)
[2019-10-21] MEDS: cephALEXin 500 MG CAP PO SCH ×2 (09:57→19:54)
[2019-10-21] MEDS: SODIUM CHLOR 7% 4 ML NEB NEB SCH ×2 (09:57→19:15)
[2019-10-21] MEDS: PANCREAZE (LIPASE 10,500U) CAP PO SCH ×2 (09:58→11:51)
[2019-10-21] MEDS: TRIKAFTA PO SCH ×2 (12:47)
--- NOTE | 2019-10-21 13:57 | Pharmacy Report ---
Glycemic Control Consultation - Date of Service October 21, 2019 - Scope Scope: Glycemic Pharmacist consulted by Dr Reddy on 10/20/2019 for glycemic control and to write orders per [facility] inpatient glycemic control protocol - Objective Weight: 88.4 kg Accuchecks BSG (last 24hrs): 10/20/19 10/20/19 10/20/19 13:12 17:39 20:34 Glucose 158 H POC Glucose 157 H 162 H 10/21/19 10/21/19 10/21/19 02:07 04:12 06:23 Glucose 84 POC Glucose 110 H 80 10/21/19 10/21/19 08:10 11:15 Glucose POC Glucose 98 216 H Laboratory Data (last 24hrs): 10/20/19 10/21/19 13:12 04:12 Potassium 3.3 L 3.7 Carbon Dioxide 22 22 Anion Gap 6.0 5.0 Creatinine 1.11 0.95 Est Cr Clr Drug Dosing 101.8 119.0 - Recent Pertinent Medications Outpatient Anti-diabetic Regimen: * Insulin pump: 0.75u/hr, target BSG 130mg/dL, CF 70, CR 20 * A1c = 8.9 % 05/2019 - Assessment & Plan Assessment & Plan: ASSESSMENT: * Mr. Arguelles is a 39yo M type I diabetic. He p/w intentional overdose on Seroquel + altered mentation. PMHx consistent w/ cystic fibrosis, MDD, bipolar disorder, hypothyroidism, among others. BSGs have been reasonable until now. Lunch BSG low 200s. After discussing w/ attending, it was agreed that Mr. Arguelles is unfit to manage his insulin pump in a safe manner, the decision was made to suspend the insulin pump and convert Mr. Arguelles to basal/bolus. * He is ordered a regular diet. PLAN FOR INPATIENT GLYCEMIC CONTROL: * Basal insulin - * Lantus 18u X1 then remove insulin pump * Bolus insulin * NovoLog per scale ACHS or Q6hrs while NPO * Goal Range: Low 110 mg/dL - High 140 mg/dL * Correction Factor: 70 mg/dL/unit * Nutritional / Prandial insulin per carb ratio of 1 unit per 20 grams CHO consumed * I will add 00,04 checks to help ensure euglycemia overnight * Please note that the plan above was derived based on current level of insulin resistance and hospital stress. These recommendations are appropriate for inpatient admission only. Plan of care upon discharge will need to be reassessed to avoid potential outpatient hypo/hyperglycemia. Thank you.
[2019-10-21] MEDS ORDERED: INSULIN GLARGINE SOLOSTAR 100 UNITS/ML 3 ML PEN SC ONE (14:00)
--- NOTE | 2019-10-21 15:12 | Psychiatric Consultation ---
Date of Consultation October 21, 2019 Impression / Recommendations Impression Dr. Blanca Troncoso was directly involved in review and discussion of the patient's case and participated in medical decision making regarding treatment recommendations. RECOMMENDATIONS: 10/21 - Pt admitted s/p intentional overdose of quetiapine - 1:1 monitor and suicide precautions in place during medical admission - Will attempt to reassess when patient is less sedated; however, it is recommended that patient receive inpatient psychiatric treatment at time of discharge - Given some illogical statements, it is possible patient is experiencing some confusion or delirium s/p overdose - recommend following for improvement in mental status as he becomes more alert - Agree with holding psychotropic medications until mental status improves; patient does admit his psychotropic medication regimen had been more effective over the past 2-3 weeks and that his suicide attempt was related to a specific stressor and was more impulsive - consider resuming outpatient medication reg imen, though will defer this to accepting psychiatric facility - Will attempt to gather collateral from and outpatient providers when patient is able to sign ROIs Psych History Identifying Data 39-year-old male admitted medically on 10/20/2019 after presenting to the ED s/p intentional overdose. Pt states he took ~15 tablets of 400mg quetiapine per hospital documentation. Psychiatric consultation was requested due to intentional overdose. Chief Complaint "Yeah, we can talk. Go ahead." History of Present Illness Elio Arguelles is a 39-year-old male admitted medically on 10/20/2019 after presenting to the ED s/p intentional overdose of what is reported to be ~15 tablets of "400mg" quetiapine - of note, his external medication history shows previous prescriptions have been for 200mg tablets. It is reported the overdose was related to an argument with his . Pt does have a history of schizoaffective disorder, bipolar type and has had several prior suicide attempts and over 10 inpatient psychiatric hospitalizations according to prior records. It is also reported that the patient recently underwent changes to his psychiatric medication regimen as well. Patient's case was reviewed and discussed with psychiatric nurse liaison and supervising psychiatrist. Pt was seen briefly for psychiatric evaluation, with hopes he would be able to participate in interview. Earlier nursing notes suggested ongoing sedation today, it was difficult to keep patient awake during our conversation. Patient does admit to feeling "tired", but states that he has been "up and about a little bit today." When asked what led to his hospitalization, the patient states "I had an argument with Twila." When asked what happened after this, the patient states, "it was just a night cup, it's fine. He does admit that he took about 15 tablets of quetiapine. When asked about intent, he stated "I don't know." He was given several possible options i.e. "to end his life, to get a particular reaction, to fall asleep." Pt responds by only saying "Number 1 and number 2." When uicid+Asked about the presence of suicidal ideation prior to the overdose, the patient states "if you had asked me a couple weeks ago I would have said yeah, but we adjusted my Wellbutrin and have actually been doing a lot better." Patient states that this adjustment was likely 2 to 3 weeks ago, and he has not had active suicidal ideation since that time. When asked to describe his suicidal thoughts/plan, he states "eh talk to the baseball game." He then seemingly fell asleep and was not able to participate in meaningful conversation after that. Pt was told that inpatient psychiatric hospitalization will be recommended at time of medical clearance and he responded with "ok"; though it is not clear he truly heard or understood what this provider was saying at that point in the conversation. There was no information passed to this provider regarding the presence of a 302 petitioning statement or a 302 warrant. Past Psychiatric History Previous Psych History: Pt has a documented diagnosis of schizoaffective disorder, bipolar type. Over 10 inpatient psychiatric admissions to [facility] alone, most recently in 09/2015. It is reported that patient has minimized the number of suicide attempts he has had, with documentation suggesting at least 3 (at least one by carbon monoxide poisoning). Prior psychiatric medications include: Zyprexa, Topamax, Prazosin, Celexa, Chantix, Effexor, Seroquel, Wellbutrin, [place], Latuda, among others. Current Psychiatric Diagnosis: Schizoaffective disorder, bipolar type Allergies Allergy/AdvReac Type Severity Reaction Status Date / Time No Known Allergies Allergy Verified 10/20/19 13:20 Home Medications Home Medications Medication Instructions Recorded Confirmed Type Novolog U-100 Insulin aspart 100 See Rx Instructions SQ DAILY 90 05/21/19 10/20/19 Rx unit/mL subcutaneous solution Days #9 vial NS cholecalciferol (vitamin D3) 125 5,000 units PO DAILY cap 08/13/19 10/20/19 History mcg (5,000 unit) capsule levothyroxine 75 mcg tablet 75 mcg PO DAILY tab 08/13/19 10/20/19 History multivitamin 1 tab PO DAILY 08/13/19 10/20/19 History bupropion HCl 300 mg PO DAILY 08/23/19 10/20/19 History cephalexin [Keflex] 500 mg PO BID 08/23/19 10/20/19 History famotidine 20 mg PO DAILY 08/23/19 10/20/19 History fazixr-vnrndiel-cqydxjt [Zenpep] 0 cap PO TIDM 08/23/19 10/20/19 History lithium carbonate [Lithobid] 300 mg PO QAM 08/23/19 10/20/19 History lithium carbonate [Lithobid] 600 mg PO HS 08/23/19 10/20/19 History lurasidone [Latuda] 160 mg PO HS 08/23/19 10/20/19 History quetiapine [Seroquel] 200 mg PO HS 08/23/19 10/20/19 History sulfamethoxazole-trimethoprim 1 tab PO Q12 08/23/19 10/20/19 History [Bactrim DS] varenicline [Chantix] 1 mg PO DAILY 08/23/19 10/20/19 History fenofibrate nanocrystallized 145 145 mg PO DAILY #90 tab 09/04/19 10/20/19 Rx mg tablet bbbwoicpimh-zhuunvotyd-lygpbgf 1 ea PO BID 10/20/19 10/20/19 History [Trikafta] Substance Abuse History Pt denied use of alcohol or illicit substances to psychiatric nurse liaison. Personal History Living Arrangements: Home (with and son) Patient History Medical History Bipolar disorder (Chronic) Controlled type 1 diabetes mellitus, with long-term current use of insulin Cystic fibrosis (Chronic) Diabetes (Acute) Hypercalcemia (Chronic) Hypertriglyceridemia (Chronic) Hypothyroidism (Chronic) Overweight (Chronic) Psychosis Schizoaffective disorder (Chronic) Small bowel obstruction (Acute) Strangulation of omentum (Acute) Ventral hernia (Acute) Surgical History No pertinent past surgical history Family History Mother Bipolar disorder Anxiety Hard of hearing Depression Cancer Hypertension Father Diabetes Hypertension Hard of hearing Lung cancer Brother Depression Grandfather Myocardial infarction Other No significant family history Social History Preferred Language: Estonian 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 marital status: Current Living Situation: Spouse current occupational status: employed current occupation: [employer] Feels Safe at Home: Yes Smoking Status: Former smoker Age Started Using Tobacco: 15 ; Age Quit Using Tobacco: 34 ; packs per day: 1 ; Second Hand Exposure: No ; Hx Alcohol Use: No Hx Substance Use: Yes substance use type: prescription drug Substance Use Type Other:: overdose seroquel Last Used Substance: Just Prior to Arrival Physical Exam Psychiatric: Orientation: + not alert (only briefly awake early in converation; otherwise appearing sedated) Unable to assess orientation due to level of sedation Apperance: appropriately dressed, + disheveled and appeared stated age male, found to be sleeping soundly. Appropriately dressed for setting, wearing paper scrubs. Appearing mildly disheveled. Eye Contact: + poor eye contact (unable to keep eyes open for conversation) Motor Behavior: no abnormal motor movements (observed while laying in bed) Disorganized, only briefly able to remain on topic. Interjects with unrelated comments such as "eh talk to the baseball games" and "it was just a night cup, it's ok." Vital Signs (Past 24 Hours): Last Vital Signs Temp 36.5 C 10/21/19 13:34 Pulse 95 H 10/21/19 13:34 Resp 20 10/21/19 13:34 BP 119/78 10/21/19 13:34 Pulse Ox 100 10/21/19 13:34 Review of Systems Unable to complete full ROS due to patient's level of sedation. He does not verbalize any physical complaints at time of encounter. Results & Data Medications Administered Cephalexin HCl (Keflex) 500 mg PO BID JAVIER Stop: 11/20/19 09:14 Last Admin: 10/21/19 09:57 Dose: 500 mg Documented by: [id number] Ipratropium [place] (Atrovent 0.02% 0.5mg/2.5ml) 0.5 mg NEB BIDR JAVIER Stop: 11/20/19 09:14 Last Admin: 10/21/19 09:57 Dose: 0.5 mg Documented by: [id number] [place] - Patient's (Own Med) 1 ea PO QAM JAVIER; Protocol Stop: 11/20/19 12:29 Last Admin: 10/21/19 12:47 Dose: Not Given Documented by: [id number] [place] - Patient's (Own Med) 1 ea PO QAM [facility]; Protocol Stop: 11/20/19 12:29 Last Admin: 10/21/19 12:47 Dose: Not Given Documented by: [id number] Sodium Chloride (Sodium Chlor 7% Neb Solution) 4 ml NEB BIDR JAVIER Stop: 11/20/19 09:44 Last Admin: 10/21/19 09:57 Dose: 4 ml Documented by: [id number] Coding Level of Care Code 54125 [facility] Intl Hosp Care Lvl 2
[2019-10-21] MEDS: INSULIN ASPART 100 UNITS/ML 3 ML PEN SC SCH ×3 (17:31→23:34)
[2019-10-21] MEDS: ZENPEP PO SCH (17:32)
--- NOTE | 2019-10-21 18:07 | Electrocardiogram Report ---
Test Reason : Blood Pressure : / mmHG Vent. Rate : 120 BPM Atrial Rate : 120 BPM P-R Int : 170 ms QRS Dur : 106 ms QT Int : 372 ms P-R-T Axes : 053 -09 041 degrees QTc Int : 525 ms Sinus tachycardia Incomplete right bundle branch block Prolonged QT Abnormal ECG When compared with ECG of 20-OCT-2019 14:10, No significant change was found Confirmed by Jacek Ann ([id number]) on 10/21/2019 6:06:43 PM Referred By: REFERRED SELF Confirmed By:Gomez Ann
--- NOTE | 2019-10-21 18:13 | Electrocardiogram Report ---
Test Reason : Blood Pressure : / mmHG Vent. Rate : 108 BPM Atrial Rate : 108 BPM P-R Int : 164 ms QRS Dur : 104 ms QT Int : 376 ms P-R-T Axes : 064 017 029 degrees QTc Int : 503 ms Sinus tachycardia Incomplete right bundle branch block T wave abnormality, consider anterior ischemia Abnormal ECG When compared with ECG of 20-OCT-2019 18:30, (unconfirmed) No significant change was found Confirmed by Jacek Ann ([id number]) on 10/21/2019 6:13:21 PM Referred By: REFERRED SELF Confirmed By:Gomez Ann
[2019-10-21] MEDS ORDERED: COLISTIN NEB SCH (21:00)
[2019-10-21] MEDS ORDERED: COLISTIMETHATE INH SCH (21:30)
[2019-10-21] MEDS ORDERED: TRIKAFTA PO SCH (23:00)
[2019-10-22] MEDS: INSULIN ASPART 100 UNITS/ML 3 ML PEN SC SCH ×4 (04:51→16:54)
[2019-10-22] MEDS ORDERED: LEVOTHYROXINE SODIUM 75 MCG TABLET PO SCH (06:30)
[2019-10-22] MEDS ORDERED: COLISTIN INH SCH ×2 (07:00→19:00)
[2019-10-22] MEDS: SODIUM CHLOR 7% 4 ML NEB NEB SCH (07:08)
[2019-10-22] MEDS: cephALEXin 500 MG CAP PO SCH (08:56)
[2019-10-22] MEDS: TRIKAFTA PO SCH ×2 (08:56)
[2019-10-22] MEDS: ZENPEP PO SCH ×3 (08:57→16:56)
[2019-10-22 08:58] LABS: BUN Creatinine Ratio 12.2 (10-20); Calcium 9.6 mg/dl (8.5-10.1); Creatinine Clr Calc Pharmacy 103.5 ml/min; Est GFR (African American) 107.3; Est GFR (Non-African American) 92.6; Magnesium 1.9 mg/dl (1.8-2.4)
[2019-10-22 09:00] LABS: Phosphorus 2.6 mg/dl (2.5-4.9)
[2019-10-22] MEDS ORDERED: CHOLECALCIFEROL 1,000 UNITS 25 MCG TAB PO SCH (09:00)
[2019-10-22] MEDS ORDERED: ALBUT/IPRATROP 3MG/0.5MG NEB 3 ML VIAL NEB SCH (09:00)
[2019-10-22 09:49] LABS: Estimated Average Glucose 197 mg/dl; Hemoglobin A1C 8.5 % (4.5-5.6)
--- NOTE | 2019-10-22 12:23 | Pharmacy Report ---
Pharmacy Glycemic Short Note 2 - Date of Service October 22, 2019 - Glycemic Short BSG Results (Last 24 hours): 10/21/19 10/21/19 10/21/19 11:15 16:39 19:53 Glucose POC Glucose 216 H 186 H 179 H 10/21/19 10/22/19 10/22/19 23:25 03:58 07:32 Glucose POC Glucose 172 H 106 H 91 10/22/19 10/22/19 08:03 11:31 Glucose 100 H POC Glucose 176 H ASSESSMENT: * BSGs over the preceding 24hrs have been reasonable. D/w nursing, appetite has improved. I think there is still concern that he could potentially hurt himself with the insulin pump. Will hold off on initiating insulin pump for now. PLAN FOR INPATIENT GLYCEMIC CONTROL: * Basal insulin * Lantus 16u x1 @1300 today * Bolus insulin * NovoLog per scale ACHS or Q6hrs while NPO * Goal Range: Low 110 mg/dL - High 140 mg/dL * Correction Factor: 70 mg/dL/unit * Nutritional / Prandial insulin per carb ratio of 1 unit per 20 grams CHO consumed
[2019-10-22] MEDS ORDERED: INSULIN GLARGINE SOLOSTAR 100 UNITS/ML 3 ML PEN SC ONE (13:00)
--- NOTE | 2019-10-22 19:59 | Electrocardiogram Report ---
Test Reason : Blood Pressure : / mmHG Vent. Rate : 089 BPM Atrial Rate : 089 BPM P-R Int : 158 ms QRS Dur : 098 ms QT Int : 388 ms P-R-T Axes : 064 052 050 degrees QTc Int : 472 ms Normal sinus rhythm Incomplete right bundle branch block T wave abnormality, consider anterior ischemia Prolonged QT Abnormal ECG When compared with ECG of 21-OCT-2019 06:49, No significant change was found Confirmed by Jacek Ann ([id number]) on 10/22/2019 7:59:21 PM Referred By: REFERRED SELF Confirmed By:Gomez Ann
--- NOTE | 2019-10-23 15:30 | Discharge Summary ---
Date of Service October 22, 2019 Admission HPI Per Admitting Provider Elio Arguelles is a 39 year old male with T1DM, cystic fibrosis, hypothyroidism, Bipolar disorder, Major depression and Schizoaffective disorder who presents to the ER due to intentional overdose of Seroquel after an argument with his . He has apparently been depressed for the last few months as his mother and he has been the executor of the estate. He and his got in an argument about buying a truck today and the patient took approximately 15 pills of Seroquel 400mg around 11:30am. When he presented to the ER approximately 1 hour after taking the pills he was conversational. When patient seen by myself in the ER he was drowsy but rousable to pain. ER workup including positive urine MDMA (?due to wellbutrin), negative salicylates, acetaminophen and alcohol. Mild hypokalemia 3.3. Ativan was advised by saddle and side wire stitcher although this was held as patient became more drowsy. With regards to his cystic fibrosis he has had multiple hospital admissions for pneumonia in the past (as per his engineering drafter scanned note). Recently started Trikafta in September. Takes [place] (aztreonam) inhaler but not every day. Tobramycin only when sick. Alternates Keflex and Bactrim (unknown how often) for PNA prophylaxis. Zenpep 5-6 pills TID for pancreatic enzyme replacement. Noted history of small bowel obstruction. T1DM - has insulin pump running at 0.75 units/hr when seen. Continuous subcutaneous glucose monitor on left abdomen - does not automatically feed his insulin pump as per his . Major depression / Bipolar disorder - as above recently his depression has increased. Recently increased wellbutrin on Tuesday to help with this. Principal Diagnosis drug overdose Discharge Exam Constitutional: well developed,no acute distress Eyes: + anicteric sclerae; pupils not irregular ENMT: Ears: no external ear abnormality Nose: no external nose abnormality Neck: trachea midline and + thick neck; no tracheal deviation Respiratory: normal respiratory effort; no respiratory distress, no labored breathing, no retractions and does not use accessory muscles Auscultation: + crackles (mild coarse b/l equal); no diminished lung sounds, no rales and no rhonchi Cardiovascular: Rate/Rhythm: regular rhythm and + tachycardic Heart Sounds: no murmur Extremities: normal capillary refill; no calf tenderness and no pedal edema Gastrointestinal (Abdomen): Inspection/Auscultation: abdomen normal to inspection (insulin pump on left, CGM on right) and normal bowel sounds Percussion/Palpation: abdomen soft; abdomen nontender, no guarding and abdomen not rigid Skin: no rashes, warm and dry Neurologic: moves all extremities, awake no focal motor deficits Motor/Sensory: no tremor and no pronator drift Psychiatric: Orientation: alert and oriented x 3 Eye Contact: + fair eye contact Speech: normal rate/rhythm/volume of speech Affect: euthymic affect Lymphatic: no cervical or axillary lymphadenopathy Discharge Data Allergies Allergy/AdvReac Type Severity Reaction Status Date / Time No Known Allergies Allergy Verified 10/20/19 13:20 Consultations 10/20/19 14:20 ED Decision to Admit Stat 10/20/19 16:39 Consult Psychiatry Routine 10/20/19 16:41 Consult Shoe Worker Routine Hospital Course (1) Drug overdose: 400mg x 15 Seroquel. Intentional overdose after argument with his . Patient was monitored and slowly returned to his baseline.. Medically stable as EKG normal at 30 hours . will resume home meds. (2) Prolonged QT interval: Improving QTc (503 ms) and QRS on EKG this morning. Aim Mg > 2, K > 4 resolved at discharge. (3) Suicide attempt: Consult psychiatry, will be mostly back to his baseline this afternoon. (4) Encephalopathy: Toxic encephalopathy secondary to Seroquel overdose, expected to be back t o his baseline this afternoon. (5) Cystic fibrosis: At higher risk of PNA. Restart home meds - ipratropium bromide neb BID, hypertonic saline nebulizer BID. His will bring in home Abx nebs. (6) Controlled type 1 diabetes mellitus, with long-term current use of insulin: Discussed with pharmacy. Remove insulin pump as patient unable to operate this himself and family member will not be with him tonight to manage this. Will switch to basal bolus regimen. Insulin pump settings: basal 0.75 units/hr, correction 70, carb ratio 1:20. Will need close monitoring of BSG - advise at midnight and 4am in addition to ACHS. (7) Hypothyroidism: Continue levothyroxine 75 mcg daily. (8) Major depression: Holding all medication at this time secondary to encephalopathy. Will defer re-introduction to psychiatry after 30 hours. [place] level notmal (9) DVT prophylaxis: Young age. Expected short stay, no chemical prophylaxis. SCDs removed as patient not safe with these on. (10) Discharge planning issues: discharge to inpatient psychiatry Total Time Total Time Spent Total Time Spent (In Minutes): 32 Total Time Includes: Examination of the Patient, Discharge Planning and Medication Reconciliation Discharge Plan Discharge Items Patient Disposition: Transfer Behavioral Health Fac Reason For Visit: INTENTIONAL OVERDOSE Discharge Diagnosis: Intentional Overdose Activity: Resume your previous activity Non-emergency contact: Primary Care Provider Call non-emergency contact if: you have any medication questions Follow-up/Referrals: Maxine Cortez MD [Primary Care Provider] - Diet: Regular Addtl Attending Provider Instructions: You have been hospitalized for an acute medical problem. During your stay at [facility], we have made an effort to correct the problem that brought you to the hospital while keeping you as comfortable as possible. Medications were used to bring your condition under control and your discharge instructions will include directions for any medications you should take after leaving the hospital. Please make sure you see your Primary Care Provider as part of your follow up plan. Pending Studies at Discharge: No Stand-Alone Forms: My [facility], Suicide Prevention Resources Medications and DC Order Prescriptions: Continued Novolog U-100 Insulin aspart 100 unit/mL solution See Rx Instructions SQ DAILY 90 Days Qty: 9 RF: 3 fenofibrate nanocrystallized 145 mg tablet 145 mg PO DAILY Qty: 90 RF: 3 levothyroxine 75 mcg tablet 75 mcg PO DAILY RF: 0 cholecalciferol (vitamin D3) 5,000 unit capsule 5,000 units PO DAILY RF: 0 multivitamin tablet 1 tab PO DAILY RF: 0 lithium carbonate [Lithobid] 300 mg tablet extended release 300 mg PO QAM RF: 0 lithium carbonate [Lithobid] 300 mg tablet extended release 600 mg PO HS RF: 0 Zenpep 20,000-63,000- 84,000 unit capsule,delayed release(DR/EC) 0 cap PO TIDM RF: 0 quetiapine [Seroquel] 200 mg tablet 200 mg PO HS RF: 0 famotidine 20 mg tablet 20 mg PO DAILY RF: 0 cephalexin [Keflex] 500 mg capsule 500 mg PO BID RF: 0 Chantix 1 mg tablet 1 mg PO DAILY RF: 0 Latuda 80 mg tablet 160 mg PO HS RF: 0 Trikafta 100-50-75 mg(d) /150 mg (n) Tablets, Sequential 1 ea PO TID RF: 0 No Action mirtazapine 15 mg Tablet 15 mg PO HS RF: 0 bupropion HCl 300 mg tablet extended release 24 hr 300 mg PO DAILY RF: 0 Zenpep 20,000-63,000- 84,000 unit capsule,delayed release(DR/EC) 20,000 cap PO UD RF: 0 colistin (colistimethate Na) 150 mg Recon Soln 75 mg INHALATION BID RF: 0 Discharge Orders: Discharge Order (Routine); Ordered 10/22/19 Ordered By: Jesus Stuart Admission Data Admit Date/Time: 10/20/19 15:10 Attending Provider: Jesus Stuart Admit Provider: Choco Reddy Primary Care Provider: Maxine Cortez Other Providers: Can Wilcox ; Blanca Troncoso Other Interventions: Discharge Summary Assessment (RN) Last Done: 10/22/19 15:46 DC Date/Time DO NOT enter until pt leaves facility: 10/22/19 18:04 Coding Level of Care Code D/C Day Management >30 mins Diagnoses Drug overdose T50.902A Encounter type: initial encounter Injury intent: intentional self-harm Prolonged QT interval R94.31 Suicide attempt T14.91XA Encephalopathy G93.40 Cystic fibrosis E84.9 Controlled type 1 diabetes mellitus, with long-term current use of insulin E10.9 Hypothyroidism E03.9 Hypothyroidism type: acquired Major depression F33.2 Active/Remission status: currently active Major depression episode severity: severe Major depression recurrence: recurrent Psychotic features: without psychotic features DVT prophylaxis Z29.9 Discharge planning issues Z02.9
[2019-10-26 09:22] LABS: MDA negative; MDEA negative; MDMA (Ecstasy) Urine, Confirm negative
== END 2019-10-22 18:04 | DRG 917 ==
LOC: ED 12:34 → SUATTDRO 15:10 → 2E 15:10 → 1E 16:11 → 2S 10-21 13:32

== ENCOUNTER 2019-10-22 15:38 | Inpatient (IN) ==
[2019-10-22] MEDS ORDERED: BISMUTH SUBSALICYLATE PER ML OMNICELL CHARGE PO PRN (18:13)
[2019-10-22] MEDS ORDERED: ALUMINUM/MAGNESIUM SUSP 30 ML UDC PO PRN (18:13)
[2019-10-22] MEDS ORDERED: ACETAMINOPHEN 325 MG TAB PO PRN (18:13)
[2019-10-22] MEDS ORDERED: MAGNESIUM HYDROXIDE SUSP 30 ML UDC PO PRN (18:13)
[2019-10-22] MEDS ORDERED: SODIUM CHLORIDE 0.65% NA SOLN 45 ML (OCEAN) PRN (18:13)
[2019-10-22] MEDS ORDERED: SULFAMETHOXAZOLE/TRIMETHOPRIM DS 800/160MG TAB PO SCH (21:00)
[2019-10-22] MEDS: LURASIDONE HCL 40 MG TAB PO SCH (21:20)
[2019-10-22] MEDS: LITHIUM CARBONATE 300 MG TAB PO SCH (21:22)
[2019-10-22] MEDS: QUETIAPINE FUMARATE 200 MG TAB PO SCH (21:23)
[2019-10-22] MEDS: MIRTAZAPINE TAB 15 MG TAB PO SCH (21:23)
[2019-10-22] MEDS: cephALEXin 500 MG CAP PO SCH (22:13)
[2019-10-22] MEDS: [UNRECOGNIZED DRUG - OTHER] PO SCH (22:13)
[2019-10-23] MEDS ORDERED: PHARMACY GLYCEMIC MGMT CONSULT PRN (09:23)
--- NOTE | 2019-10-23 09:23 | History & Physical ---
Date of Service October 23, 2019 Impression / Recommendations Impression 39-year-old male with a history of schizoaffective disorder bipolar type and generalized anxiety disorder as well as multiple medical problems who presented to the ER several days ago status post suicide attempt by quetiapine overdose in the context of an argument with his . He was on the medical floor for several days where his psychiatric medications were initially held due to prolonged QTC, but have now been resumed. He has been struggling with mood symptoms for the past several weeks, and Wellbutrin XL was increased last week to target irritability, which he does report has been helpful. He often changes medications on his own without discussion with his psychiatrist, and admits that he stopped escitalopram after 1 day following his last appointment in August. He also has chronic intermittent suicidal thoughts with a plan to overdose, and has access to large amounts of pills at home as he is prescribed a large number of agents and also has old, outdated prescriptions. We will schedule a family meeting with his and ask her to bring in medication so that discontinued once can be discarded of, as well as encourage them to come up with a plan to limit his access to large amounts of medications. He would like to work on communication and anger management. Inpatient treatment is indicated due to the severity of his symptoms and risk for suicide if discharged prematurely. (1) Drug overdose: 10/23 -intentional overdose on quetiapine in an attempt to harm himself in the context of an argument with his . -Continue inpatient psychiatric treatment on a voluntary basis with every 15 minute checks for safety. -Encourage participation in groups and therapy. Work on healthy coping skills and discharge safety plan. Family meeting with . Patient reports chronic suicidal ideation with thoughts to overdose, and has access to large amounts of medications at home, both medications he is currently prescribed and old medi cations that is been discontinued. We will ask his to bring in all of his medications so that we can safely dispose of those he no longer needs. We will also recommend that his medications be locked and secured at home and dispensed daily, then in a weekly pillbox, in order to limit his access to large amounts of medications, given his chronic suicidality and history of multiple suicide attempts. -Coordinate care with outpatient psychiatrist, Dr. Flowers at [facility] (contacted today), and therapist Dr. Nehemias Eng. Encounter type: initial encounter Injury intent: intentional self-harm Qualified Code(s): T50.902A - Poisoning by unspecified drugs, me dicaments and biological substances, intentional self-harm, initial encounter Present on Admission?: Yes (2) Prolonged QT interval: 10/23 - Initially 579, decreased to 472 as of last EKG on 10/20/2019. Likely due to overdose of quetiapine. -Recheck EKG today. Quetiapine was resumed on the hospitalist service. Present on Admission?: Yes (3) Schizoaffective disorder: 10/23 -most recent episode depressed. -Resume home dose of quetiapine 200 mg at bedtime (patient had increased it on his own to 1200 mg at bedtime last month, and was advised to take it as prescribed), lithium 300 mg every morning and 600 mg at bedtime, bupropion XL 300 mg daily, escitalopram 5 mg daily (for premature ejaculation), and lurasidone 160 mg daily with dinner. -Monitoring on an atypical antipsychotic: Fasting lipid profile 07/07/2019 within normal limits. Hemoglobin A1c 10/22/2019 was 8.5%. -Buckley trough level 10/21/2019 was 0.9. Schizoaffective disorder type: bipolar Qualified Code(s): F25.0 - Schizoaffective disorder, bipolar type Present on Admission?: Yes (4) Diabetes type 1, uncontrolled: 10/23 - Continue insulin, diabetic diet, and consult diabetic pharmacist for glucose management. Hemoglobin A1c on 10/22/2019 was 8.5% with an estimated average glucose of 197. -Patient's insulin pump was removed while on the medical floor as he was unable to operate it (? due to AMS from overdose). Present on Admission?: Yes (5) Cystic fibrosis: 10/23 -continue home medications (pancrelipase, Keflex, Trikafta, and Zeprep), daily nebulizers (Colistin), respiratory therapy. -Reviewed home medications with Dr. Choco Reddy who is caring for the patient on the hospitalist service, as no note or discharge summary entered from hospitalist who saw him yesterday. He states patient was receiving Keflex for prophylaxis (not Bactrim, alternates between them), colistin nebulizer 75 mg twice daily, DuoNeb and hypertonic saline nebulizer twice daily. Colistin added to his home medication list and Bactrim removed. Present on Admission?: Yes (6) Hypothyroidism: 10/23 -continue home dose of levothyroxine 75 mcg daily. Hypothyroidism type: acquired Qualified Code(s): E03.9 - Hypothyroidism, unspecified Present on Admission?: Yes Risk Factors Assessment Male: Yes : Yes Do You Have Access To A Gun?: No Health Problems: Yes Mental Health Diagnoses: Yes Substance Use Disorders: No Previous Attempt: Yes Family History of Suicide: No Previous Psychiatric Hospitalization: Yes Hopelessness: No Smoker: No Protective Factors Assessment : Yes Responsible for Young Children: Yes Employed: Yes Stable Relationships: Yes Supportive Family: Yes Psychiatric History Identifying Data SUMI OLIVEIRA is a 39-year-old M who currently lives in [place], [place] with his , has a history of schizoaffective disorder bipolar type, generalized anxiety disorder, cystic fibrosis, diabetes type 1, and was admitted on 10/22/19 18:08 on a 201 voluntary commitment after he overdosed on quetiapine in a suicide attempt. He was initially admitted to the hospitalist service 09/27-10/22/2019. Chief Complaint "That's all I remember, taking all those pills". History of Present Illness Patient presented to the ER 10/20/2019 about 1 hour after overdosing on approximately #14-15 tablets of quetiapine 400 mg after an argument with his . He reported depression for the past few months in the wake of his mother's . He was sedated, QTC was prolonged (579), and he was admitted to the hospitalist service. Psychotropic medications were held. He was seen by the psychiatric consult service the following day, reported that he overdosed with intent to end his life, and inpatient psychiatric treatment was recommended. Per outpatient records, he was last seen on 09/07/2019, at which point he reported sexual side effects from medication (? SSRI), improved mood stability since increasing quetiapine to 400 mg at bedtime, but exacerbation of mood symptoms by his mother's . His 2-year-old son had been diagnosed with diabetes, and he has 4 children. He described his relationship with his as strained due to the patient not opening up about conflicts. He reported increasing quetiapine on his own to 1200 mg at bedtime, and had decreased Chantix to 1 mg daily (not smoking since 09/2017). Depression and SI had increased when he started Chantix. He reported ongoing, transient, suicidal thoughts about twice a week, but denied intent to act on them. He reported improved sleep with mirtazapine 15 mg at bedtime, and had not used Ativan in several weeks. He reported premature ejaculation, so low-dose escitalopram 5 mg daily was resumed to combat that. He was also prescribed quetiapine 200 mg at bedtime, and lurasidone, bupropion XL, lithium, and mirtazapine were continued. His next appointment is 10/26/2019. He then called in to the clinic 10/15/2019 reporting problems with anger outbursts and requested to increase his Wellbutrin XL, which was increased to 300 mg daily. On my assessment, he reports he got into an argument with his the day of presentation because he wanted to take out a loan and his didn't want him to take out as much money. He states he "just got mad at her, yelled at her, then we talked." He "felt bad after the whole thing" so "took a bunch of pills." He thinks he took about #12 400mg (left over from an old Rx), and says he thought he would "just go to sleep and not wake up." He reports suicidal thoughts are "off and on" and that he had a plan to overdose on Seroquel. States he has since talked to his and States he has been more irritable and angry for a several weeks. He attributes this to stopping escitalopram a few months ago. He says he was resumed on 5mg as above in , but only took it for one day and then stopped because "it wasn't working" for premature ejaculation. He says he has been taking his other meds daily as prescribed. He thinks the higher dose of bupropion XL "helped for a day, then it wore off." He denies problems with sleep, reports getting 7-9 hours/night. Denies changes in appetite, weight, energy. Stressors include 4 young children (youngest is 7 months, oldest is 5 years old). He denies recent manic or psychotic symptoms, but reports he "feels compelled to do things" at times, although doesn't hear voices. He has been seeing his therapist weekly and thinks it is helpful. He wants to work on "being more open" and "not hitting hot buttons," meaning not getting upset about things (like wanting a new truck and disagreeing). Past Psychiatric History Previous Psych History: Per outpatient records, diagnosed with schizoaffective disorder bipolar type and generalized anxiety disorder. Current Psychiatric Diagnosis: Schizoaffective Disorder bipolar type Outpatient Services: Psychiatrist: Dr. Nehemias Flowers at [facility] Therapist: Dr. Nehemias Eng Previous Psych Admissions: > 10 to [facility] alone, most recent hospitalization here in 09/2015 Do You Have Access To A Gun?: No History of Previous Suicide Attempt: Yes Describe Attempts in the Past: At least 3 per past records, including carbon monoxide poisoning Past Medication Trials: Include but not limited to: Zyprexa, Topamax, Prazosin, Celexa, Chantix, Effexor, Seroquel, Wellbutrin, Buckley, Latuda Allergies Allergy/AdvReac Type Severity Reaction Status Date / Time No Known Allergies Allergy Verified 10/20/19 13:20 Home Medications Home Medications Medication Instructions Recorded Confirmed Type Novolog U-100 Insulin aspart 100 See Rx Instructions SQ DAILY 90 05/21/19 10/23/19 Rx unit/mL subcutaneous solution Days #9 vial NS cholecalciferol (vitamin D3) 125 5,000 units PO DAILY cap 08/13/19 10/20/19 History mcg (5,000 unit) capsule levothyroxine 75 mcg tablet 75 mcg PO DAILY tab 08/13/19 10/23/19 History multivitamin 1 tab PO DAILY 08/13/19 10/23/19 History Chantix 1 mg PO DAILY 08/23/19 10/23/19 History Latuda 160 mg PO HS 08/23/19 10/23/19 History Zenpep 0 cap PO TIDM 08/23/19 10/23/19 History cephalexin [Keflex] 500 mg PO BID 08/23/19 10/23/19 History famotidine 20 mg PO DAILY 08/23/19 10/20/19 History lithium carbonate [Lithobid] 300 mg PO QAM 08/23/19 10/23/19 History lithium carbonate [Lithobid] 600 mg PO HS 08/23/19 10/23/19 History quetiapine [Seroquel] 200 mg PO HS 08/23/19 10/23/19 History fenofibrate nanocrystallized 145 145 mg PO DAILY #90 tab 09/04/19 10/20/19 Rx mg tablet Trikafta 1 ea PO TID 10/20/19 10/23/19 History mirtazapine 15 mg PO HS 10/22/19 10/22/19 History bupropion HCl 300 mg PO DAILY 10/23/19 10/23/19 History colistin (colistimethate Na) 75 mg INHALATION BID 10/23/19 10/23/19 History escitalopram oxalate 5 mg PO DAILY 10/23/19 10/23/19 History [id number] [Zenpep] 20,000 cap PO UD 10/23/19 10/23/19 History Family History Family History of: Depression Alcohol History Hx of Alcohol Use Over the Past 12 Months: No AUDIT Total Score: 0 Denies use. Smoking Use Have You Smoked or Used Tobacco Products in the Last 30 Days: No tobacco type: cigarettes Smoking Status: Former smoker Substance History Hx of Prescription Med Misuse Over the Past 12 Months: No Hx of Over the Counter Med Misuse Over the Past 12 Months: No Hx of Inhalent Misuse Over the Past 12 Months: No Hx of Organic Substance Use Over the Past 12 Months: No Hx of Illegal Substances/Street Drug Use Over Past 12 Months: No Problems as a Result of Past Substance Use: None Identified Personal History Living Arrangements: Home Living Arrangements Comments: With and son in [place], [place] Highest Grade Completed: High School Graduate 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[employer]) Marital Status: Beliefs That Will Affect Care: None Patient History Social History Preferred Language: Mohawk Communication Ability: Effective Rn First Assist Required: No Beliefs That Will Affect Care: None marital status: Current Living Situation: Spouse current occupational status: employed 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 Feels Safe at Home: Yes Smoking Status: Former smoker Tobacco Type: cigarettes ; Age Started Using Tobacco: 15 ; Age Quit Using Tobacco: 34 ; packs per day: 1 ; Second Hand Exposure: No ; Hx Alcohol Use: No Hx Substance Use: Yes substance use type: prescription drug Substance Use Type Other:: overdose seroquel Last Used Substance: Just Prior to Arrival Review of Systems Review of Systems: All systems reviewed & are unremarkable except as noted in HPI & below Physical Exam Psychiatric: Orientation: alert, oriented x 3 and cooperative Apperance: appropriately dressed, + disheveled and appeared stated age unkempt Eye Contact: good eye contact Motor Behavior: steady gait and station and no abnormal motor movements Speech: normal rate/rhythm/volume of speech Affect: + blunted affect "I don't know" Thought Process: goal directed thought process and + concrete thought process Thought Content: reality based without delusions Suicidal Thoughts: denies suicidal thoughts But admits overdose was an attempt to end his life. Homicidal Thoughts: denies homicidal thoughts Hallucinations: no auditory hallucinations and no visual hallucinations Cognition: recent memory grossly intact, attention grossly intact and language grossly intact Insight: + limited insight Judgement: + limited judgement Vital Signs (Past 24 Hours): Last Vital Signs Temp 36.6 C 10/23/19 06:38 Pulse 103 H 10/23/19 06:39 Resp 18 10/23/19 06:38 BP 119/78 10/23/19 06:39 Pulse Ox 98 10/22/19 19:11 Exam Statement: A physical exam was performed on the medical floor prior to admission to the unit by Dr. Reddy. I accept that physical as correct/medical clearance for the inpatient physical exam. Results & Data Laboratory Results Laboratory Results - last 24 hr 10/22/19 21:30 POC Glucose 150 H Current Inpatient Medications Current Inpatient Medications: Current Inpatient Medications Acetaminophen (Tylenol) 650 mg PO Q4H PRN PRN Reason: Headache or Minor Fever Stop: 11/21/19 18:12 Al Hydrox/Mg Hydrox/Simethicone (Maalox) 30 ml PO Q4H PRN PRN Reason: GI Upset Stop: 11/21/19 18:12 Bismuth Subsalicylate (Kaopectate) 15 ml PO PRN PRN PRN Reason: Loose Stool Stop: 11/21/19 18:12 Cephalexin HCl (Keflex) 500 mg PO BID JAVIER Stop: 11/21/19 20:59 Last Admin: 10/22/19 22:13 Dose: 500 mg Documented by: Hydroxyzine HCl (Vistaril) 50 mg PO HSZ PRN PRN Reason: Insomnia Stop: 11/21/19 18:12 Hydroxyzine HCl (Vistaril) 25 mg PO Q4H PRN PRN Reason: Anxiety Stop: 11/21/19 18:12 Buckley Carbonate (Buckley Carbonate) 600 mg PO [facility] Stop: 11/21/19 21:59 Last Admin: 10/22/19 21:22 Dose: 600 mg Documented by: Lurasidone HCl (Latuda) 160 mg PO [facility]DD [facility] Stop: 11/21/19 19:59 Last Admin: 10/22/19 21:20 Dose: 160 mg Documented by: Magnesium Hydroxide (Milk Of Magnesia) 30 ml PO DAILY PRN PRN Reason: Constipation Stop: 11/21/19 18:12 Mirtazapine (Remeron) 15 mg PO [facility] Stop: 11/21/19 21:59 Last Admin: 10/22/19 21:23 Dose: 15 mg Documented by: Miscellaneous Information (Consult Glycemic Management Pharmacy) 1 ea N/A NOW STA Stop: 10/23/19 09:18 Elexacaftor/Tezacaftor/Ivacaftor ~Non-Formulary Patient's Own Med 1 ea PO DAILY@1000 JAVIER; Protocol Stop: 11/22/19 09:59 Non-Formulary Patient's Own Med~ Ivacaftor 1 ea PO [facility] Stop: 11/21/19 21:59 Last Admin: 10/22/19 22:13 Dose: 1 mg Documented by: Elexacaftor/Tezacaftor/Ivacaftor ~Non-Formulary Patient's Own Med 1 ea PO DAILY@1000 JAVIER; Protocol Stop: 11/22/19 09:59 Quetiapine Fumarate (Seroquel) 200 mg PO [facility] Stop: 11/21/19 21:59 Last Admin: 10/22/19 21:23 Dose: 200 mg Documented by: Sodium Chloride (Lee Nasal) 1 - 2 sprays NA PRN PRN PRN Reason: Nasal Dryness/Congestion Stop: 11/21/19 18:12 Trimethoprim/Sulfamethoxazole (Septra Ds 800/160mg Tab) 1 tab PO Q12 [facility] Stop: 11/21/19 20:59
[2019-10-23] MEDS: cephALEXin 500 MG CAP PO SCH ×2 (09:25→20:42)
[2019-10-23] MEDS: ELEXACAFTOR PO SCH ×2 (09:27)
[2019-10-23] MEDS: TEZACAFTOR PO SCH ×2 (09:27)
[2019-10-23] MEDS: IVACAFTOR PO SCH ×2 (09:27)
[2019-10-23] MEDS ORDERED: GLUCOSE 10 TABS/TUBE PO PRN (09:45)
[2019-10-23] MEDS ORDERED: PHARMACY GLYCEMIC MGMT CONSULT STA (09:45)
[2019-10-23] MEDS ORDERED: CARBOHYDRATES FOR HYPOGLYCEMIA PO PRN (09:45)
[2019-10-23] MEDS ORDERED: GLUCOSE 40% GEL 15 GM TUBE PO PRN (09:45)
[2019-10-23] MEDS ORDERED: GLUCAGON FOR INJ 1 MG VIAL SQ PRN (09:45)
[2019-10-23] MEDS ORDERED: INSULIN ASPART 100 UNITS/ML 3 ML PEN SC ONE (09:45)
[2019-10-23] MEDS ORDERED: DEXTROSE 50% 50 ML SYRINGE IV PRN (09:45)
[2019-10-23] MEDS ORDERED: cephALEXin 500 MG CAP PO SCH (09:45)
[2019-10-23] MEDS: MULTIVITAMIN TAB PO SCH (10:38)
[2019-10-23] MEDS: LITHIUM CARBONATE SLOW REL 300 MG TAB PO SCH (10:38)
[2019-10-23] MEDS: FENOFIBRATE NANOCRYSTALLIZED 145 MG TABLET PO SCH (10:39)
[2019-10-23] MEDS: LEVOTHYROXINE SODIUM 75 MCG TABLET PO SCH (10:39)
[2019-10-23] MEDS: FAMOTIDINE 20 MG TAB PO SCH (10:39)
[2019-10-23] MEDS: CHOLECALCIFEROL 1,000 UNITS 25 MCG TAB PO SCH (10:40)
[2019-10-23] MEDS ORDERED: COLISTIMETHATE INH SCH (11:15)
[2019-10-23] MEDS ORDERED: [UNRECOGNIZED DRUG - OTHER] INH SCH (11:15)
[2019-10-23] MEDS ORDERED: INSULIN GLARGINE SOLOSTAR 100 UNITS/ML 3 ML PEN SC SCH (12:30)
[2019-10-23] MEDS ORDERED: LIPASE PROTEASE AMYLASE PO SCH (12:30)
[2019-10-23] MEDS: COLISTIN INH SCH ×2 (13:08→20:10)
[2019-10-23] MEDS: ZENPEP PO SCH ×2 (13:16→17:33)
[2019-10-23] MEDS: INSULIN ASPART 100 UNITS/ML 3 ML PEN SC SCH ×3 (13:36→20:46)
--- NOTE | 2019-10-23 15:28 | Pharmacy Report ---
Pharmacy Glycemic Short Note 2 - Date of Service October 23, 2019 - Glycemic Short BSG Results (Last 24 hours): 10/22/19 10/23/19 10/23/19 21:30 09:22 12:27 POC Glucose 150 H 235 H 288 H OUTPATIENT ANTIDIABETIC REGIMEN: * Novolog insulin pump (Dexcom CGM) * Basal rate: 0.75 units/hr * CF: 70, CR: 20 * Doses from Aug 2019 ASSESSMENT: * Patient transferred to MHU on 10/22 PM. RN contacted pharmacy 10/23 AM to re- consult us. Patient's insulin pump was removed while on the medical floor with no plans to resume at this time. * Continue basal + bolus SQ insulin based on outpatient insulin usage * Fasting BSG was not obtained today. BSG of 235 mg/dL was taken after patient ate breakfast therefore it is not a reliable indication of whether or not current Lantus dose is appropriate. Continue 16 units for now and reassess tomorrow. * Post prandial BSGs are elevated. If trend continues, Novolog will be tightened. PLAN FOR INPATIENT GLYCEMIC CONTROL: * Basal insulin * Lantus 16 units SQ one daily * Bolus insulin * NovoLog per scale ACHS or Q6hrs while NPO * Goal Range: Low 110 mg/dL - High 140 mg/dL * Correction Factor: 70 mg/dL/unit * Nutritional / Prandial insulin per carb ratio of 1 unit per 20 grams CHO consumed * If dinnertime BSG is > 220 mg/dL, will tighten CF to 50 and carb ratio to 15
[2019-10-23] MEDS: LURASIDONE HCL 40 MG TAB PO SCH (17:32)
[2019-10-23] MEDS: ALBUT/IPRATROP 3MG/0.5MG NEB 3 ML VIAL NEB SCH (19:55)
[2019-10-23] MEDS: SODIUM CHLOR 7% 4 ML NEB NEB SCH (19:55)
[2019-10-23] MEDS: LITHIUM CARBONATE 300 MG TAB PO SCH (20:42)
[2019-10-23] MEDS: SULFAMETHOXAZOLE/TRIMETHOPRIM DS 800/160MG TAB PO SCH (20:42)
[2019-10-23] MEDS: QUETIAPINE FUMARATE 200 MG TAB PO SCH (20:43)
[2019-10-23] MEDS: MIRTAZAPINE TAB 15 MG TAB PO SCH (20:43)
[2019-10-23] MEDS: [UNRECOGNIZED DRUG - OTHER] PO SCH (20:44)
[2019-10-23] MEDS ORDERED: MIRTAZAPINE TAB 15 MG TAB PO SCH (22:00)
[2019-10-24] MEDS ORDERED: INSULIN ASPART 100 UNITS/ML 3 ML PEN SC SCH
[2019-10-24] MEDS: SODIUM CHLOR 7% 4 ML NEB NEB SCH ×2 (08:15→20:17)
[2019-10-24] MEDS: COLISTIN INH SCH ×2 (08:15→20:16)
[2019-10-24] MEDS: ALBUT/IPRATROP 3MG/0.5MG NEB 3 ML VIAL NEB SCH ×2 (08:15→20:01)
[2019-10-24 08:17] LABS: Creatinine Clr Calc Pharmacy 92.6 ml/min; Est GFR (African American) 93.7; Est GFR (Non-African American) 80.9
[2019-10-24] MEDS: cephALEXin 500 MG CAP PO SCH ×2 (09:27→21:28)
[2019-10-24] MEDS: LEVOTHYROXINE SODIUM 75 MCG TABLET PO SCH (09:27)
[2019-10-24] MEDS: MULTIVITAMIN TAB PO SCH (09:28)
[2019-10-24] MEDS: LITHIUM CARBONATE SLOW REL 300 MG TAB PO SCH (09:28)
[2019-10-24] MEDS: ZENPEP PO SCH ×3 (09:28→17:45)
[2019-10-24] MEDS: FAMOTIDINE 20 MG TAB PO SCH (09:29)
[2019-10-24] MEDS: SULFAMETHOXAZOLE/TRIMETHOPRIM DS 800/160MG TAB PO SCH ×2 (09:30→21:35)
[2019-10-24] MEDS: FENOFIBRATE NANOCRYSTALLIZED 145 MG TABLET PO SCH (09:30)
[2019-10-24] MEDS: CHOLECALCIFEROL 1,000 UNITS 25 MCG TAB PO SCH (09:31)
[2019-10-24] MEDS: IVACAFTOR PO SCH ×2 (09:32→09:34)
[2019-10-24] MEDS: TEZACAFTOR PO SCH ×2 (09:32→09:34)
[2019-10-24] MEDS: ELEXACAFTOR PO SCH ×2 (09:32→09:34)
[2019-10-24] MEDS: INSULIN ASPART 100 UNITS/ML 3 ML PEN SC SCH ×4 (09:35→21:43)
--- NOTE | 2019-10-24 12:59 | Psychiatric Progress Note ---
Date of Service October 24, 2019 Impression / Recommendations Impression 39-year-old male with a history of schizoaffective disorder bipolar type and generalized anxiety disorder as well as multiple medical problems who presented to the ER several days ago status post suicide attempt by quetiapine overdose in the context of an argument with his . He was on the medical floor for several days where his psychiatric medications were initially held due to prolonged QTC, but have now been resumed. He has been struggling with mood symptoms for the past several weeks, and Wellbutrin XL was increased last week to target irritability, which he does report has been helpful. He often changes medications on his own without discussion with his psychiatrist, and admits that he stopped escitalopram after 1 day following his last appointment in August. He also has chronic intermittent suicidal thoughts with a plan to overdose, and has access to large amounts of pills at home as he is prescribed a large number of agents and also has old, outdated prescriptions. Family meeting was held with patient's via phone to discuss safety and discharge planning. Inpatient treatment is indicated due to the severity of his symptoms and risk for suicide if discharged prematurely. (1) Drug overdose: 10/23 -intentional overdose on quetiapine in an attempt to harm himself in the context of an argument with his . -Continue inpatient psychiatric treatment on a voluntary basis with every 15 minute checks for safety. -Encourage participation in groups and therapy. Work on healthy coping skills and discharge safety plan. Family meeting with . Patient reports chronic suicidal ideation with thoughts to overdose, and has access to large amounts of medications at home, both medications he is currently prescribed and old medications that is been discontinued. We will ask his to bring in all of his medications so that we can safely dispose of those he no longer needs. We will also recommend that his medications be locked and secured at home and dispensed daily, then in a weekly pillbox, in order to limit his access to large amounts of medications, given his chronic suicidality and history of multiple suicide attempts. -Coordinate care with outpatient psychiatrist, Dr. Sears at [facility] (contacted today), and therapist Dr. Nehemias Eng. (2) Prolonged QT interval: 10/23 - Initially 579, decreased to 472 as of last EKG on 10/20/2019. Likely due to overdose of quetiapine. -Recheck EKG today. Quetiapine was resumed on the hospitalist service. (3) Schizoaffective disorder: 10/23 -most recent episode depressed. -Resume home dose of quetiapine 200 mg at bedtime (patient had increased it on his own to 1200 mg at bedtime last month, and was advised to take it as prescribed), lithium 300 mg every morning and 600 mg at bedtime, bupropion XL 300 mg daily, escitalopram 5 mg daily (for premature ejaculation), and lurasidone 160 mg daily with dinner. -Monitoring on an atypical antipsychotic: Fasting lipid profile 07/07/2019 within normal limits. Hemoglobin A1c 10/22/2019 was 8.5%. -[place] trough level 10/21/2019 was 0.9. 10/24 - Continue current medication regimen as above - pt does verbalize interest in medication adjustments, but wants to discuss this with his outpatient psychiatrist directly - Family meeting held with today - Solidify aftercare appointments (4) Diabetes type 1, uncontrolled: 10/23 - Continue insulin, diabetic diet, and consult diabetic pharmacist for glucose management. Hemoglobin A1c on 10/22/2019 was 8.5% with an estimated average glucose of 197. -Patient's insulin pump was removed while on the medical floor as he was unable to operate it (? due to AMS from overdose). (5) Cystic fibrosis: 10/23 -continue home medications (pancrelipase, Keflex, Trikafta, and Zeprep), daily nebulizers (Colistin), respiratory therapy. -Reviewed home medications with Dr. Choco Reddy who is caring for the patient on the hospitalist service, as no note or discharge summary entered from hospitalist who saw him yesterday. He states patient was receiving Keflex for prophylaxis (not Bactrim, alternates between them), colistin nebulizer 75 mg twice daily, DuoNeb and hypertonic saline nebulizer twice daily. Colistin added to his home medication list and Bactrim removed. (6) Hypothyroidism: 10/23 -continue home dose of levothyroxine 75 mcg daily. Risk Factors Assessment Male: Yes : Yes Do You Have Access To A Gun?: No Health Problems: Yes Mental Health Diagnoses: Yes Substance Use Disorders: No Previous Attempt: Yes Family History of Suicide: No Previous Psychiatric Hospitalization: Yes Hopelessness: No Smoker: No Protective Factors Assessment : Yes Responsible for Young Children: Yes Employed: Yes Stable Relationships: Yes Supportive Family: Yes Interval History Identifying Information SUMI OLIVEIRA is a 39-year-old M who currently lives in [place], [place] with his , has a history of schizoaffective disorder bipolar type, generalized anxiety disorder, cystic fibrosis, diabetes type 1, and was admitted on 10/22/19 18:08 on a 201 voluntary commitment after he overdosed on quetiapine in a suicide attempt. He was initially admitted to the hospitalist service 10/20/2019-10/22/2019. Chief Complaint "Pretty good." Review of Systems Notes Constitutional: denied Cardiovascular: denied Respiratory: denied Gastrointestinal: denied Neurological: denied Psychiatric: denies symptoms other than stated above Total of at least 10 systems reviewed, pertinent positives as above and in HPI. Sleep Information Total Hours of Sleep: 6.5 Sleep Comments: pt on q-15 minute checks Meal Information Percent Meal Consumed - Breakfast: 75 Percent Meal Consumed - Lunch: 100 Percent Meal Consumed - Dinner: 100 Subjective Subjective Patient was seen & assessed and interval progress reviewed with treatment team. Staff report the patient is scheduled to have a meeting with his via phone this morning. Pt was seen today to assess progress since admission. He provides verbal consent to allow Cristal Mckeon PA-C to observe today's encounter. Pt states that his meeting this morning went well. He said, "we just talked about aftercare and how to prevent things in the future." Pt states that open communication was discussed as a way to prevent impulsive reactions to stressful situations. Pt states that he and his discussed the need for further medication changes; however, the patient wishes to discuss these with his outpatient psychiatrist directly. He denies suicidal ideation and other concerns at this time. Physical Exam Psychiatric Orientation: alert, oriented x 3 and cooperative (superficially) Apperance: appropriately dressed and + disheveled Eye Contact: good eye contact Motor Behavior: steady gait and station and no abnormal motor movements Speech: normal rate/rhythm/volume of speech Affect: + blunted affect Mood: + depressed mood (reporting chronically depressed mood, but improvement since admission) "Pretty good" Thought Process: goal directed thought process and clear/coherent thought process Thought Content: reality based without delusions; no hopelessness Suicidal Thoughts: denies suicidal thoughts and denies suicidal intent Homicidal Thoughts: denies homicidal thoughts Hallucinations: no auditory hallucinations and no visual hallucinations Cognition: attention grossly intact and language grossly intact Insight: + fair insight Judgement: + fair judgement Vital Signs (Past 24 Hours) Last Vital Signs Temp 36.8 C 10/24/19 06:43 Pulse 86 10/24/19 08:52 Resp 16 10/24/19 08:52 BP 134/68 10/24/19 06:44 Pulse Ox 98 10/24/19 08:52 Results & Data Laboratory Results Laboratory Results - last 24 hr 10/23/19 10/23/19 10/24/19 17:12 20:35 00:02 Creatinine Est Cr Clr Drug Dosing Est GFR ( Amer) Est GFR (Non-Af Amer) POC Glucose 127 H 252 H 305 H* 10/24/19 10/24/19 10/24/19 00:06 00:10 07:44 Creatinine 1.13 Est Cr Clr Drug Dosing 92.6 Est GFR ( Amer) 93.7 Est GFR (Non-Af Amer) 80.9 POC Glucose 377 H* 286 H 10/24/19 10/24/19 09:02 12:23 Creatinine Est Cr Clr Drug Dosing Est GFR ( Amer) Est GFR (Non-Af Amer) POC Glucose 182 H 282 H Current Inpatient Medications Current Inpatient Medications: Current Inpatient Medications Acetaminophen (Tylenol) 650 mg PO Q4H PRN PRN Reason: Headache or Minor Fever Stop: 11/21/19 18:12 Al Hydrox/Mg Hydrox/Simethicone (Maalox) 30 ml PO Q4H PRN PRN Reason: GI Upset Stop: 11/21/19 18:12 Albuterol (Duoneb) 3 ml NEB BIDR [facility] Stop: 11/22/19 18:59 Last Admin: 10/24/19 08:15 Dose: 3 ml Documented by: Bismuth Subsalicylate (Kaopectate) 15 ml PO PRN PRN PRN Reason: Loose Stool Stop: 11/21/19 18:12 Cephalexin HCl (Keflex) 500 mg PO BID [facility] Stop: 11/21/19 20:59 Last Admin: 10/24/19 09:27 Dose: 500 mg Documented by: Colistimethate Sodium (Colistimethate 150mg) 150 mg INH BIDR [facility] Stop: 11/22/19 11:59 Last Admin: 10/24/19 08:15 Dose: 150 mg Documented by: Dextrose (Dextrose 50%) 25 - 50 ml IV UD PRN; Protocol PRN Reason: Hypoglycemia Protocol Stop: 11/22/19 09:44 Famotidine (Pepcid) 20 mg PO DAILY [facility] Stop: 11/22/19 09:44 Last Admin: 10/24/19 09:29 Dose: 20 mg Documented by: Fenofibrate (Tricor) 145 mg PO DAILY [facility] Stop: 11/22/19 09:44 Last Admin: 10/24/19 09:30 Dose: 145 mg Documented by: Glucagon (Glucagen) 1 mg SQ UD PRN; Protocol PRN Reason: Hypoglycemia Protocol Stop: 11/22/19 09:44 Glucose (Glucose 40%) 15 - 30 gm PO UD PRN; Protocol PRN Reason: Hypoglycemia Protocol Stop: 11/22/19 09:44 Glucose (Dex4 Glucose) 4 - 8 tabs PO UD PRN; Protocol PRN Reason: Hypoglycemia Protocol Stop: 11/22/19 09:44 Hydroxyzine HCl (Vistaril) 50 mg PO HSZ PRN PRN Reason: Insomnia Stop: 11/21/19 18:12 Hydroxyzine HCl (Vistaril) 25 mg PO Q4H PRN PRN Reason: Anxiety Stop: 11/21/19 18:12 Insulin Aspart (Novolog Flexpen) [facility] Stop: 11/22/19 11:59 Last Admin: 10/24/19 09:35 Dose: 4 units Documented by: Insulin Aspart (Novolog Flexpen) 0 units SC 0000,0400 [facility] Stop: 10/25/19 04:01 Insulin Glargine (Lantus Solostar Pen) 17 [facility] SC [facility]; Protocol Stop: 11/23/19 10:59 Levothyroxine Sodium (Synthroid) 75 mcg PO DAILYBB [facility] Stop: 11/22/19 09:44 Last Admin: 10/24/19 09:27 Dose: 75 mcg Documented by: [place] Carbonate ([place] Carbonate) 600 mg PO HS [facility] Stop: 11/21/19 21:59 Last Admin: 10/23/19 20:42 Dose: 600 mg Documented by: [place] Carbonate (Lithobid) 300 mg PO QAM [facility] Stop: 11/22/19 09:44 Last Admin: 10/24/19 09:28 Dose: 300 mg Documented by: Lurasidone HCl (Latuda) 160 mg PO QDD [facility] Stop: 11/21/19 19:59 Last Admin: 10/23/19 17:32 Dose: 160 mg Documented by: Magnesium Hydroxide (Milk Of Magnesia) 30 ml PO DAILY PRN PRN Reason: Constipation Stop: 11/21/19 18:12 Mirtazapine (Remeron) 15 mg PO [facility] Stop: 11/21/19 21:59 Last Admin: 10/23/19 20:43 Dose: 15 mg Documented by: Miscellaneous (Carbohydrates For Hypoglycemia) 15 - 30 gm PO UD PRN PRN Reason: Hypoglycemia Treatment Stop: 11/22/19 09:44 Miscellaneous Information (Consult Glycemic Management Pharmacy) 1 ea N/A UD PRN PRN Reason: Consult Stop: 11/22/19 09:22 Multivitamins (Multivitamin Tab) 1 tab PO DAILY [facility] Stop: 11/22/19 09:44 Last Admin: 10/24/19 09:28 Dose: 1 tab Documented by: Elexacaftor/Tezacaftor/Ivacaftor ~Non-Formulary Patient's Own Med 1 ea PO DAILY@1000 [facility]; Protocol Stop: 11/22/19 09:59 Last Admin: 10/24/19 09:32 Dose: 1 ea Documented by: Non-Formulary Patient's Own Med~ Ivacaftor 1 ea PO [facility] Stop: 11/21/19 21:59 Last Admin: 10/23/19 20:44 Dose: 1 mg Documented by: Elexacaftor/Tezacaftor/Ivacaftor ~Non-Formulary Patient's Own Med 1 ea PO DAILY@1000 [facility]; Protocol Stop: 11/22/19 09:59 Last Admin: 10/24/19 09:34 Dose: 1 ea Documented by: Zenpep / Non- Formulary Patient's Own Med 0 ea PO TIDM [facility] Stop: 11/22/19 12:29 Last Admin: 10/24/19 09:28 Dose: 5 cap Documented by: Quetiapine Fumarate (Seroquel) 200 mg PO [facility] Stop: 11/21/19 21:59 Last Admin: 10/23/19 20:43 Dose: 200 mg Documented by: Sodium Chloride ([place] Nasal) 1 - 2 sprays NA PRN PRN PRN Reason: Nasal Dryness/Congestion Stop: 11/21/19 18:12 Sodium Chloride (Sodium Chlor 7% Neb Solution) 4 ml NEB BIDR [facility] Stop: 11/22/19 18:59 Last Admin: 10/24/19 08:15 Dose: 4 ml Documented by: Trimethoprim/Sulfamethoxazole (Septra Ds 800/160mg Tab) 1 tab PO Q12 [facility]; Protocol Stop: 11/22/19 20:59 Last Admin: 10/24/19 09:30 Dose: 1 tab Documented by: Vitamin D (Vitamin D3) 5,000 units PO DAILY [facility] Stop: 11/22/19 10:29 Last Admin: 10/24/19 09:31 Dose: 5,000 units Documented by: Mental Health & Subst Abuse Tx Psychiatrist Name of Psychiatrist: Denisse Sears Psychiatrist's Date of Appointment with Psychiatrist: 10/26/19 Time of Appointment with Psychiatrist: 4:20 pm Psychiatric Appointment Comment: [address] [facility] Therapist Name of Therapist: Dr. Nehemias Eng Therapist's Date of Therapist Appointment: 10/25/19 Time of Therapist Appointment: 6:00 pm Therapy Appointment Comment: [address], [address], [place] [address] Post Discharge Appointments Primary Care Physician Name Of Family Doctor: [facility] Date of Appointment with PCP: 10/31/19 Time of Appointment with PCP: 2:30 p.m. Provider Appointment Comment: [address] [place], [place] [address] [address] Contact Information Discharge Discharge [address]: [address] [place] [id number] (1) Hypothyroidism Hypothyroidism type: acquired Qualified Code(s): E03.9 - Hypothyroidism, unspecified (2) Drug overdose Encounter type: initial encounter Injury intent: intentional self-harm Qualified Code(s): T50.902A - Poisoning by unspecified drugs, medicaments and biological substances, intentional self-harm, initial encounter (3) Schizoaffective disorder Schizoaffective disorder type: bipolar Qualified Code(s): F25.0 - Schizoaffective disorder, bipolar type
[2019-10-24] MEDS: INSULIN GLARGINE SOLOSTAR 100 UNITS/ML 3 ML PEN SC SCH (13:14)
--- NOTE | 2019-10-24 16:24 | Pharmacy Report ---
Pharmacy Glycemic Short Note 2 - Date of Service October 24, 2019 - Glycemic Short BSG Results (Last 24 hours): 10/23/19 10/23/19 10/24/19 17:12 20:35 00:02 POC Glucose 127 H 252 H 305 H* 10/24/19 10/24/19 10/24/19 00:06 00:10 09:02 POC Glucose 377 H* 286 H 182 H 10/24/19 12:23 POC Glucose 282 H OUTPATIENT ANTIDIABETIC REGIMEN: * Novolog insulin pump (Dexcom CGM) * Basal rate: 0.75 units/hr * CF: 70, CR: 20 * Doses from Aug 2019 ASSESSMENT: 10/24: * Pt received 33 units of insulin yesterday (16 units basal and 17 units bolus) with poor glycemic control * Increase both basal and bolus insulin * Previous dose of Lantus 18 units produced a fasting BSG of 91 mg/dL, therefore I will trial 17 units. 10/23: * Patient transferred to [facility] on 10/22 PM. RN contacted pharmacy 10/23 AM to re- consult us. Patient's insulin pump was removed while on the medical floor with no plans to resume at this time. * Continue basal + bolus SQ insulin based on outpatient insulin usage * Fasting BSG was not obtained today. BSG of 235 mg/dL was taken after patient ate breakfast therefore it is not a reliable indication of whether or not current Lantus dose is appropriate. Continue 16 units for now and reassess tomorrow. * Post prandial BSGs are elevated. If trend continues, Novolog will be tightened. PLAN FOR INPATIENT GLYCEMIC CONTROL: * Basal insulin - increase * Lantus 17 units SQ one daily * Bolus insulin - tighten * NovoLog per scale ACHS or Q6hrs while NPO * Goal Range: Low 110 mg/dL - High 140 mg/dL * Correction Factor: 50 mg/dL/unit * Nutritional / Prandial insulin per carb ratio of 1 unit per 12 grams CHO consumed * Add overnight checks to assess if additional basal is needed
--- NOTE | 2019-10-24 17:35 | Electrocardiogram Report ---
Test Reason : Blood Pressure : / mmHG Vent. Rate : 090 BPM Atrial Rate : 090 BPM P-R Int : 158 ms QRS Dur : 096 ms QT Int : 362 ms P-R-T Axes : 059 002 035 degrees QTc Int : 442 ms Normal sinus rhythm with sinus arrhythmia Incomplete right bundle branch block T wave abnormality, consider anterior ischemia Abnormal ECG When compared with ECG of 22-OCT-2019 06:48, No significant change was found Confirmed by Jacek Ann ([id number]) on 10/24/2019 5:34:50 PM Referred By: Love Reese Confirmed By:Gomez Ann
[2019-10-24] MEDS: LURASIDONE HCL 40 MG TAB PO SCH (17:45)
[2019-10-24] MEDS ORDERED: INSULIN HUMAN REGULAR PER UNIT 3 UNITS in SYRINGE 2.97 ML IV STA (21:08)
[2019-10-24] MEDS: LITHIUM CARBONATE 300 MG TAB PO SCH (21:27)
[2019-10-24] MEDS: MIRTAZAPINE TAB 15 MG TAB PO SCH (21:29)
[2019-10-24] MEDS: QUETIAPINE FUMARATE 200 MG TAB PO SCH (21:29)
[2019-10-24] MEDS: [UNRECOGNIZED DRUG - OTHER] PO SCH (21:32)
[2019-10-25] MEDS: INSULIN ASPART 100 UNITS/ML 3 ML PEN SC SCH ×4 (00:17→13:07)
[2019-10-25] MEDS: SODIUM CHLOR 7% 4 ML NEB NEB SCH (08:10)
[2019-10-25] MEDS: ALBUT/IPRATROP 3MG/0.5MG NEB 3 ML VIAL NEB SCH (08:10)
[2019-10-25] MEDS: COLISTIN INH SCH (08:11)
[2019-10-25] MEDS: ZENPEP PO SCH ×2 (08:47→13:05)
[2019-10-25] MEDS: FAMOTIDINE 20 MG TAB PO SCH (08:48)
[2019-10-25] MEDS: LEVOTHYROXINE SODIUM 75 MCG TABLET PO SCH (08:48)
[2019-10-25] MEDS: MULTIVITAMIN TAB PO SCH (08:48)
[2019-10-25] MEDS: SULFAMETHOXAZOLE/TRIMETHOPRIM DS 800/160MG TAB PO SCH (08:48)
[2019-10-25] MEDS: FENOFIBRATE NANOCRYSTALLIZED 145 MG TABLET PO SCH (08:48)
[2019-10-25] MEDS: LITHIUM CARBONATE SLOW REL 300 MG TAB PO SCH (08:48)
[2019-10-25] MEDS: cephALEXin 500 MG CAP PO SCH (08:49)
[2019-10-25] MEDS: CHOLECALCIFEROL 1,000 UNITS 25 MCG TAB PO SCH (08:49)
[2019-10-25] MEDS: TEZACAFTOR PO SCH ×2 (08:50→08:51)
[2019-10-25] MEDS: IVACAFTOR PO SCH ×2 (08:50→08:51)
[2019-10-25] MEDS: ELEXACAFTOR PO SCH ×2 (08:50→08:51)
--- NOTE | 2019-10-25 08:50 | Discharge Summary ---
Date of Service October 25, 2019 History of Present Illness Patient presented to the ER 10/20/2019 about 1 hour after overdosing on approximately #14-15 tablets of quetiapine 400 mg after an argument with his . He reported depression for the past few months in the wake of his mother's . He was sedated, QTC was prolonged (579), and he was admitted to the hospitalist service. Psychotropic medications were held. He was seen by the psychiatric consult service the following day, reported that he overdosed with intent to end his life, and inpatient psychiatric treatment was recommended. Per outpatient records, he was last seen on 09/07/2019, at which point he reported sexual side effects from medication (? SSRI), improved mood stability since increasing quetiapine to 400 mg at bedtime, but exacerbation of mood symptoms by his mother's . His 2-year-old son had been diagnosed with diabetes, and he has 4 children. He described his relationship with his as strained due to the patient not opening up about conflicts. He reported increasing quetiapine on his own to 1200 mg at bedtime, and had decreased Chantix to 1 mg daily (not smoking since 09/2017). Depression and SI had increased when he started Chantix. He reported ongoing, transient, suicidal thoughts about twice a week, but denied intent to act on them. He reported improved sleep with mirtazapine 15 mg at bedtime, and had not used Ativan in several weeks. He reported premature ejaculation, so low-dose escitalopram 5 mg daily was resumed to combat that. He was also prescribed quetiapine 200 mg at bedtime, and lurasidone, bupropion XL, lithium, and mirtazapine were continued. His next appointment is 10/26/2019. He then called in to the clinic 10/15/2019 reporting problems with anger outbursts and requested to increase his Wellbutrin XL, which was increased to 300 mg daily. On my assessment, he reports he got into an argument with his the day of presentation because he wanted to take out a loan and his didn't want him to take out as much money. He states he "just got mad at her, yelled at her, then we talked." He "felt bad after the whole thing" so "took a bunch of pills." He thinks he took about #12 400mg (left over from an old Rx), and says he thought he would "just go to sleep and not wake up." He reports suicidal thoughts are "off and on" and that he had a plan to overdose on Seroquel. States he has since talked to his and States he has been more irritable and angry for a several weeks. He attributes this to stopping escitalopram a few months ago. He says he was resumed on 5mg as above in Aug., but only took it for one day and then stopped because "it wasn't working" for premature ejaculation. He says he has been taking his other meds daily as prescribed. He thinks the higher dose of bupropion XL "helped for a day, then it wore off." He denies problems with sleep, reports getting 7-9 hours/night. Denies changes in appetite, weight, energy. Stressors include 4 young children (youngest is 7 months, oldest is 5 years old). He denies recent manic or psychotic symptoms, but reports he "feels compelled to do things" at times, although doesn't hear voices. He has been seeing his therapist weekly and thinks it is helpful. He wants to work on "being more open" and "not hitting hot buttons," meaning not getting upset about things (like wanting a new truck and disagreeing). Physical Exam Psychiatric Orientation: alert, oriented x 3 and cooperative (superficially) Apperance: appropriately dressed and + disheveled Eye Contact: good eye contact Motor Behavior: steady gait and station and no abnormal motor movements Speech: normal rate/rhythm/volume of speech (brief responses to questions) Affect: + depressed affect and mood congruent with affect Mood: + depressed mood ("I mean, not the best, but not as bad" - "8 or 9 out of 10") and + anxious mood ("I think it's natural to be a little nervous about discharge") Thought Process: goal directed thought process, clear/coherent thought process and thought association intact Thought Content: reality based without delusions and + hopelessness (intermittently, but no longer leading to active SI) Suicidal Thoughts: denies suicidal thoughts and denies suicidal intent Homicidal Thoughts: denies homicidal thoughts Hallucinations: no auditory hallucinations and no visual hallucinations Cognition: remote memory grossly intact, attention grossly intact and language grossly intact Insight: + fair insight Judgement: + fair judgement Vital Signs (Past 24 Hours) Last Vital Signs Temp 36.5 C 10/25/19 06:32 Pulse 83 10/25/19 08:00 Resp 15 10/25/19 08:12 BP 119/74 10/25/19 06:32 Pulse Ox 97 10/25/19 08:12 Principal Diagnosis - Schizoaffective disorder, most recent episode depressed Psychiatric Data 39-year-old male with a history of schizoaffective disorder bipolar type and generalized anxiety disorder as well as multiple medical problems who presented to the ED on 10/20/2019 status post suicide attempt by quetiapine overdose in the context of an argument with his . He was admitted to the medical floor for several days where his psychiatric medications were initially held due to prolonged QTC, and were subsequently resumed. Upon medical clearance, patient was agreeable with inpatient psychiatric treatment to target his low mood and stressors contributing to his impulsive suicide attempt. He was accepted to our unit on 10/22/2019 for voluntary psychiatric hospitalization. He had reported ongoing struggles with mood symptoms for the past several weeks, and Wellbutrin XL was increased on an outpatient basis 1 week prior to hospitalization to target irritability, which he initially reported had been helpful. He verbalized a history of changing medications on his own without discussion with his psychiatrist, and admitted to stopping escitalopram after 1 day following his last outpatient appointment in August. Patient has a history of chronic intermittent suicidal thoughts with a plan to overdose, and had had access to large amounts of pills at home. Family meeting was held with patient's via phone to discuss safety and discharge planning - with specific focus on securing all of his medications. During the patient's hospitalization, his home medication regimen was continued. As patient had not been taking escitalopram, it was not restarted. Patient did verbalize improvement in mood, but feels ongoing medication adjustments may be beneficial. He did verbalize preference to make these adjustments with his outpatient psychiatrist. Patient participated in group and recreational programming over the course of his admission. He interacted appropriately with peers and completed a safety plan prior to discharge. Although patient reports intermittent hopelessness and ongoing depressive symptoms, he was able to contract for safety outside of the inpatient hospital setting. Discharge planning was reviewed with the , who verbalized feeling comfortable with the patient returning home. His outpatient psychiatric appointments were confirmed, and allow for timely follow-up after hospital discharge. Patient is actually scheduled to meet with his outpatient therapist the evening of discharge. Based on review of patient's case and their current presentation, risk of harm to self or others is no longer perceived to be acute. Management of symptoms on an outpatient basis seems the most appropriate and least restrictive setting. Pt seems appropriate for discharge with recommendation for consistent follow-up with outpatient psychiatric prescriber and therapist. Pt verbalized understanding of discharge plan reviewed and is agreeable with plan to be discharged home today. Day of Discharge Assessment Patient's case was reviewed and discussed with nursing and social work. Staff reports patient continues to participate in group and recreational programming. He had a successful phone meeting with his yesterday, and plans to secure medications were discussed. Staff does report diabetic pharmacist was involved in managing rather elevated blood sugars throughout the evening. Patient requesting discharge, as he has an outpatient therapy appointment scheduled for later this evening. Patient was seen today to assess readiness for discharge. He provides verbal consent to allow Cristal Mckeon PA-C to observe today's interaction. He states that he feels ready for discharge, though does admit to some nervousness. Patient states "yeah, I guess I am a little on edge. But I think its natural to be a little anxious about discharge." Patient states "as far as mood, I would say I am an 8 or 9." He does admit to intermittent negative thoughts and hopelessness, stating "they are there but not as bad." He denies active suicidal ideation and is able to contract for safety outside of the inpatient hospital setting. Patient continues to believe that he would benefit from medication adjustment; however, continues to request to do this with his outpatient prescriber directly. He remains aware of his outpatient therapy appointment this evening, and is scheduled for an appointment with his outpatient psychiatrist on 10/26/2019. Patient's has been involved in discharge plans, and reports feeling comfortable with patient returning home. She is planning to pick him up this evening after she is finished with work for the day. During interaction, patient is future oriented and denies acute safety concerns. He is able to verbalize aspects of his safety plan and admits to recognition of outpatient crisis resources. Patient continues to verbalize desire for discharge today, and discharge medications were reviewed in detail. Patient denies additional needs or concerns, feeling as though his treatment goals have been achieved. ROS: Constitutional: denied Cardiovascular: denied Respiratory: denied Gastrointestinal: denied Neurological: denied Psychiatric: denies symptoms other than stated above Total of at least 10 systems reviewed, pertinent positives as above and in HPI. Transition of Care Transition Of Care Record: was reviewed with the patient Advance Directives Advance Directives Information Provided: No Advance Directives: No Mental Health Advance Directive: No Advance Directives on File: No Living Will: No Power of Transplant Case Manager: No Advance Directives Reason:: Declines as Mental Health Visit. Risk Factors Assessment Presenting risk factors reviewed on discharge. Precipitating stressors mitigated by: admission for inpatient psychiatric observation and treatment, continuation of outpatient psychiatric medications, attendance of therapeutic treatment groups, development of healthy and effective coping strategies, involvement of outpatient supports, completion of a safety plan, confirmation of extra medications being secured, confirmation of guns and weapons being secured, treatment of medical conditions during medical admission, and education on diagnoses. Pt has demonstrated improvement in condition with regard to improvement in overall mood, resolution of suicidal ideation, family meeting with to discuss discharge and safety planning. At this time, patient is requesting discharge and is no longer considered to be at acute risk of harm to himself or others. Pt will be discharged with recommendation for ongoing outpatient psychiatric treatment. Pt is at increased risk of harm to self or others when compared to the general population due to significant psychiatric history, numerous inpatient psychiatric hospitalizations, and numerous prior suicide attempts. There are several risk factors which are not likely to be mitigated in an inpatient treatment setting, and patient is able to contract for safety outside of the hospital at this time with ongoing support from and outpatient psychiatric providers. Male: Yes : Yes Do You Have Access To A Gun?: No Health Problems: Yes Mental Health Diagnoses: Yes Substance Use Disorders: No Previous Attempt: Yes Family History of Suicide: No Previous Psychiatric Hospitalization: Yes Hopelessness: No Smoker: No Protective Factors Assessment : Yes Responsible for Young Children: Yes Employed: Yes Stable Relationships: Yes Supportive Family: Yes Tobacco Cessation at Discharge Tobacco Cessation Medication Prescribed at Discharge: Not Applicable/Non-Smoker (no ongoing tobacco use; utilizes Chantix daily) Antipsychotic Medications Rationale for continued use of two antipsychotic medications is based on failure of 3 or more antipsychotic agents as monotherapy. Symptoms related to his schizoaffective disorder are relatively stable with use of quetiapine in combination with lurasidone. Total Time Total Time Spent: Greater Than 30 Minutes Total Time Includes: Examination of the patient, Discharge Planning, Medication Reconciliation and Communication with other providers Discharge Data Lab Results 10/22/19 10/23/19 10/23/19 21:30 09:22 12:27 Creatinine Est Cr Clr Drug Dosing Est GFR ( Amer) Est GFR (Non-Af Amer) POC Glucose 150 H 235 H 288 H 10/23/19 10/23/19 10/24/19 17:12 20:35 00:02 Creatinine Est Cr Clr Drug Dosing Est GFR ( Amer) Est GFR (Non-Af Amer) POC Glucose 127 H 252 H 305 H* 10/24/19 10/24/19 10/24/19 00:06 00:10 07:44 Creatinine 1.13 Est Cr Clr Drug Dosing 92.6 Est GFR ( Amer) 93.7 Est GFR (Non-Af Amer) 80.9 POC Glucose 377 H* 286 H 10/24/19 10/24/19 10/24/19 09:02 12:23 17:09 Creatinine Est Cr Clr Drug Dosing Est GFR ( Amer) Est GFR (Non-Af Amer) POC Glucose 182 H 282 H 171 H 10/24/19 10/24/19 10/25/19 20:53 20:56 00:03 Creatinine Est Cr Clr Drug Dosing Est GFR ( Amer) Est GFR (Non-Af Amer) POC Glucose 346 H* 328 H* 402 H* 10/25/19 10/25/19 10/25/19 00:06 04:16 08:30 Creatinine Est Cr Clr Drug Dosing Est GFR ( Amer) Est GFR (Non-Af Amer) POC Glucose 374 H* 221 H 159 H Hospital Course (1) Drug overdose: 10/23 -intentional overdose on quetiapine in an attempt to harm himself in the context of an argument with his . -Continue inpatient psychiatric treatment on a voluntary basis with every 15 minute checks for safety. -Encourage participation in groups and therapy. Work on healthy coping skills and discharge safety plan. Family meeting with . Patient reports chronic suicidal ideation with thoughts to overdose, and has access to large amounts of medications at home, both medications he is currently prescribed and old medications that is been discontinued. We will ask his to bring in all of his medications so that we can safely dispose of those he no longer needs. We will also recommend that his medications be locked and secured at home and dispensed daily, then in a weekly pillbox, in order to limit his access to large amounts of medications, given his chronic suicidality and history of multiple suicide attempts. -Coordinate care with outpatient psychiatrist, Dr. Sears at [facility] (contacted today), and therapist Dr. Nehemias Eng. (2) Prolonged QT interval: 10/23 - Initially 579, decreased to 472 as of last EKG on 10/20/2019. Likely due to overdose of quetiapine. -Recheck EKG today. Quetiapine was resumed on the hospitalist service. (3) Schizoaffective disorder: 10/23 -most recent episode depressed. -Resume home dose of quetiapine 200 mg at bedtime (patient had increased it on his own to 1200 mg at bedtime last month, and was advised to take it as pre scribed), lithium 300 mg every morning and 600 mg at bedtime, bupropion XL 300 mg daily, escitalopram 5 mg daily (for premature ejaculation), and lurasidone 160 mg daily with dinner. -Monitoring on an atypical antipsychotic: Fasting lipid profile 07/07/2019 within normal limits. Hemoglobin A1c 10/22/2019 was 8.5%. -Alston trough level 10/21/2019 was 0.9. 10/24 - Continue current medication regimen as above - pt does verbalize interest in medication adjustments, but wants to discuss this with his outpatient psychiatrist directly - Family meeting held with today - Solidify aftercare appointments (4) Diabetes type 1, uncontrolled: 10/23 - Continue insulin, diabetic diet, and consult diabetic pharmacist for glucose management. Hemoglobin A1c on 10/22/2019 was 8.5% with an estimated average glucose of 197. -Patient's insulin pump was removed while on the medical floor as he was unable to operate it (? due to AMS from overdose). (5) Cystic fibrosis: 10/23 -continue home medications (pancrelipase, Keflex, Trikafta, and Zeprep), daily nebulizers (Colistin), respiratory therapy. -Reviewed home medications with Dr. Choco Reddy who is caring for the patient on the hospitalist service, as no note or discharge summary entered from hospitalist who saw him yesterday. He states patient was receiving Keflex for prophylaxis (not Bactrim, alternates between them), colistin nebulizer 75 mg twice daily, DuoNeb and hypertonic saline nebulizer twice daily. Colistin added to his home medication list and Bactrim removed. (6) Hypothyroidism: 10/23 -continue home dose of levothyroxine 75 mcg daily. Mental Health & Subst Abuse Tx Psychiatrist Name of Psychiatrist: Denisse Sears Psychiatrist's Date of Appointment with Psychiatrist: 10/26/19 Time of Appointment with Psychiatrist: 4:20 pm Psychiatric Appointment Comment: [facility] Therapist Name of Therapist: Dr. Nehemias Eng Therapist's Date of Therapist Appointment: 10/25/19 Time of Therapist Appointment: 6:00 pm Therapy Appointment Comment: [address] [facility], [address], [place] [address] Post Discharge Appointments Primary Care Physician Name Of Family Doctor: [facility] Date of Appointment with PCP: 10/31/19 Time of Appointment with PCP: 2:30 p.m. Provider Appointment Comment: [address] [place] [id number] Smoking Cessation Counseling Tobacco Cessation Medication Prescribed at Discharge: Not Applicable/Non-Smoker (no ongoing tobacco use; utilizes Chantix daily) Contact Information Discharge Discharge Address: [address] [place] [address] Discharge Plan Discharge Items Patient Disposition: Home - Self-Care Reason For Visit: SCHIZOAFFECTIVE DISORDER Discharge Diagnosis: - Schizoaffective disorder Condition on Discharge: Fair Activity: Resume your previous activity Non-emergency contact: Primary Care Provider, Psychiatrist and Therapist Call non-emergency contact if: you have any medication questions and your symptoms worsen Follow-up/Referrals: Maxine Cortez MD [Primary Care Provider] - Diet: Carb Count or DM1 Addtl Attending Provider Instructions: SPECIAL CARE INSTRUCTIONS: 1. Follow through with your scheduled aftercare appointments. If unable to keep an appointment, please call to reschedule. 2. Take your medication only as prescribed. Medication should not be changed or stopped without the approval of your doctor. In the event of worsening symptoms or concerns about side effects, contact your doctor immediately. 3. Utilize new healthy coping skills, anger management skills, and stress management skills learned during your hospitalization. Journal feelings and process them with a support person. Identify stressors or situations that may result in relapse, deterioration or inappropriate behaviors and develop a plan to deal with those issues. 4. If your coping skills are ineffective and you are in crisis, contact your outpatient providers for direction. If unable to reach your providers, please call the CAN HELP LINE AT or go to the closest Emergency Room. 5. Avoid alcohol and un-prescribed drugs. 6. You have been provided with the Mental Health Advance Directives Pamphlet for your review. AFTERCARE APPOINTMENTS: * Please call your insurance company prior to your scheduled appointment to confirm your aftercare providers are covered. Take your insurance information to your appointments. WHO TO CALL AND WHEN: Medical Emergencies: For questions or emergencies related to your hospital stay, please contact the Inpatient Behavioral Health Unit at [phone]. A curtain worker is on-call 18/04 for the Behavioral Health Unit for emergencies At any time you feel your situation is an emergency, you may also call 911 immediately. Your Discharge Instructions noted above were prepared by provider Luz Alberto PA-C. Pending Studies at Discharge: No Stand-Alone Forms: My [facility], Smoking Cessation Medications and DC Order Prescriptions: Continued Novolog U-100 Insulin aspart 100 unit/mL solution See Rx Instructions SQ DAILY 90 Days Qty: 9 RF: 3 fenofibrate nanocrystallized 145 mg tablet 145 mg PO DAILY Qty: 90 RF: 3 levothyroxine 75 mcg tablet 75 mcg PO DAILY RF: 0 cholecalciferol (vitamin D3) 5,000 unit capsule 5,000 units PO DAILY RF: 0 multivitamin tablet 1 tab PO DAILY RF: 0 lithium carbonate [Lithobid] 300 mg tablet extended release 300 mg PO QAM RF: 0 lithium carbonate [Lithobid] 300 mg tablet extended release 600 mg PO HS RF: 0 Zenpep 20,000-63,000- 84,000 unit capsule,delayed release(DR/EC) 0 cap PO TIDM RF: 0 quetiapine [Seroquel] 200 mg tablet 200 mg PO HS RF: 0 famotidine 20 mg tablet 20 mg PO DAILY RF: 0 cephalexin [Keflex] 500 mg capsule 500 mg PO BID RF: 0 Chantix 1 mg tablet 1 mg PO DAILY RF: 0 Latuda 80 mg tablet 160 mg PO HS RF: 0 Trikafta 100-50-75 mg(d) /150 mg (n) Tablets, Sequential 1 ea PO TID RF: 0 mirtazapine 15 mg Tablet 15 mg PO HS RF: 0 bupropion HCl 300 mg tablet extended release 24 hr 300 mg PO DAILY RF: 0 Zenpep 20,000-63,000- 84,000 unit capsule,delayed release(DR/EC) 20,000 cap PO UD RF: 0 colistin (colistimethate Na) 150 mg Recon Soln 75 mg INHALATION BID RF: 0 Discontinued escitalopram oxalate 5 mg tablet 5 mg PO DAILY RF: 0 Discharge Orders: Discharge Order (Routine); Ordered 10/25/19 Ordered By: Luz Alberto Admission Data Admit Date/Time: 10/22/19 18:08 Attending Provider: Love Reese Admit Provider: Love Reese Primary Care Provider: Maxine Cortez Other Interventions: Discharge Summary Assessment (RN) Last Done: 10/25/19 10:48 Coding Level of Care Code 05711 D/C day mgmt > 30 min Diagnoses Drug overdose T50.902A Encounter type: initial encounter Injury intent: intentional self-harm Prolonged QT interval R94.31 Schizoaffective disorder F25.0 Schizoaffective disorder type: bipolar Diabetes type 1, uncontrolled E10.65 Cystic fibrosis E84.9 Hypothyroidism E03.9 Hypothyroidism type: acquired
[2019-10-25] MEDS ORDERED: BuPROPion XL 300 MG TABCR PO SCH (09:00)
[2019-10-25 09:01] LABS: Creatinine Clr Calc Pharmacy 83.7 ml/min; Est GFR (Non-African American) 71.6
[2019-10-25] MEDS: INSULIN GLARGINE SOLOSTAR 100 UNITS/ML 3 ML PEN SC SCH (09:01)
[2019-10-25] MEDS ORDERED: INSULIN GLARGINE SOLOSTAR 100 UNITS/ML 3 ML PEN SC SCH (11:00)
--- NOTE | 2019-10-25 14:10 | Pharmacy Report ---
Pharmacy Glycemic Short Note 2 - Date of Service October 25, 2019 - Glycemic Short BSG Results (Last 24 hours): 10/24/19 10/24/19 10/24/19 17:09 20:53 20:56 POC Glucose 171 H 346 H* 328 H* 10/25/19 10/25/19 10/25/19 00:03 00:06 04:16 POC Glucose 402 H* 374 H* 221 H 10/25/19 10/25/19 08:30 12:15 POC Glucose 159 H 188 H OUTPATIENT ANTIDIABETIC REGIMEN: * Novolog insulin pump (Dexcom CGM) * Basal rate: 0.75 units/hr * CF: 70, CR: 20 * Doses from Aug 2019 ASSESSMENT: 10/25: * Patient received total of 46 units of insulin yesterday, of which 17 were basal insulin * BSGs trending up overnight however quickly dropped this morning * Fasting BSG 155 mg/dL - plan to continue same CR as adjusted yesterday evening * Will continue same basal insulin - timed for noon * Patient plan to return home today - instructions for pump transition communicated with nurse 10/24: * Pt received 33 units of insulin yesterday (16 units basal and 17 units bolus) with poor glycemic control * Increase both basal and bolus insulin * Previous dose of Lantus 18 units produced a fasting BSG of 91 mg/dL, therefore I will trial 17 units. 10/23: * Patient transferred to [facility] on 10/22 PM. RN contacted pharmacy 10/23 AM to re- consult us. Patient's insulin pump was removed while on the medical floor with no plans to resume at this time. * Continue basal + bolus SQ insulin based on outpatient insulin usage * Fasting BSG was not obtained today. BSG of 235 mg/dL was taken after patient ate breakfast therefore it is not a reliable indication of whether or not current Lantus dose is appropriate. Continue 16 units for now and reassess tomorrow. * Post prandial BSGs are elevated. If trend continues, Novolog will be tightened. PLAN FOR INPATIENT GLYCEMIC CONTROL: * Basal insulin - continue * Lantus 17 units SQ * Bolus insulin - continue * NovoLog per scale ACHS or Q6hrs while NPO * Goal Range: Low 110 mg/dL - High 140 mg/dL * Correction Factor: 50 mg/dL/unit * Nutritional / Prandial insulin per carb ratio of 1 unit per 12 grams CHO consumed * Add overnight checks to assess if additional basal is needed PLAN FOR DISCHARGE: * Patient to be discharged later today around 4 pm * Patient aware to restart basal on insulin pump approximately 24 hours after basal dose of Lantus given today. (Lantus scheduled for ~1200 today) Patient familiar with how to adjust pump in order to suspend basal until that time. * Asked if patient needed any further instruction/assistance with pump reattachment. Patient denied and feels comfortable doing himself.
== END 2019-10-25 16:35 | disposition home or self-care (01) | DRG 885 ==
LOC: 3S 18:08

== ENCOUNTER 2021-04-17 20:32 | Inpatient (IN) ==
[2021-04-17] MEDS ORDERED: SODIUM CHLORIDE 0.9% 1000ML 1,000 ML IV SCH (21:00)
[2021-04-17 21:41] LABS: Basophils # (auto) 0.02 K/uL (0-0.2); Basophils % (auto) 0.4 %; Eosinophils # (auto) 0.15 K/uL (0-0.5); Eosinophils % (auto) 2.7 %; Hematocrit (blood only) 36.3 % (42-52); Hemoglobin 11.8 g/dL (14.0-18.0); Immature Granulocytes # (auto) 0.02 K/uL (0.00-0.02); Immature Granulocytes % (auto) 0.4 %; Lymphocytes # (auto) 1.09 K/uL (1.2-3.4); Lymphocytes % (auto) 19.7 %; Mean Corpuscular Hemoglobin 30.4 pg (25-34); Mean Corpuscular Hgb Conc 32.5 g/dL (32-36); Mean Corpuscular Volume 93.6 fL (80-100); Mean Platelet Volume 9.9 fL (7.4-10.4); Monocytes # (auto) 0.43 K/uL (0.11-0.59); Monocytes % (auto) 7.8 %; Neutrophils # (auto) 3.83 K/uL (1.4-6.5); Platelet Count 302 K/uL (130-400); RDW Coefficient of Variation 13.4 % (11.5-14.5); RDW Standard Deviation 45.7 fL (36.4-46.3); Red Blood Count 3.88 M/uL (4.7-6.1); White Blood Count 5.54 K/uL (4.8-10.8)
[2021-04-17] MEDS: MAGNESIUM SULFATE / D5W 1 GM/100 ML BAG IV SCH ×2 (21:56→23:40)
[2021-04-17 21:57] LABS: Albumin Level 3.7 gm/dl (3.4-5.0); BUN Creatinine Ratio 10.7 (10-20); Calcium 9.5 mg/dl (8.5-10.1); Creatinine Clr Calc Pharmacy 95.3 ml/min; Est GFR (African American) 88.3 ml/min; Est GFR (Non-African American) 76.2 ml/min; Magnesium 1.9 mg/dl (1.8-2.4); Potassium 3.4 mmol/L (3.5-5.1)
[2021-04-17 21:58] LABS: Appearance Urine Clear (Clear); Bilirubin Urine Negative (Negative); Blood Urine Negative (Negative); Color Urine Yellow; Glucose Urine UA Negative (Negative); Ketones Urine Negative (Negative); Leukocyte Esterase Urine Negative (Negative); Nitrite Urine Negative (Negative); Protein Urine Negative (Negative); Specific Gravity Urine 1.005 (1.000-1.030); Urobilinogen Urine Negative (Negative); pH Urine 6.5 (4.5-7.5)
[2021-04-17 22:08] LABS: Albumin Globulin Ratio 1.2 (0.9-2); Bilirubin,Total 0.2 mg/dl (0.2-1); Globulin 3.2 gm/dl (2.5-4.0); Thyroid Stimulating Hormone 0.457 uIu/ml (0.300-4.500); Total Protein 6.9 gm/dl (6.4-8.2)
[2021-04-17 22:11] LABS: Acetaminophen < 2 ug/ml (10-30); Lithium 0.7 mmol/L (0.6-1.2); Salicylate 5.2 mg/dl (2.8-20)
--- NOTE | 2021-04-17 22:35 | Emergency Department Note ---
History of Present Illness General Chief Complaint: Overdose (Intentional) Stated Complaint: OVERDOSE Time Seen by Provider: 04/17/21 20:57 History of Present Illness Provider Complaint: + intentional overdose Time: 19:55 Timing confirmed by: + spouse HPI Narrative: No headaches chest pain nausea vomiting or diarrhea. No falls or trauma. Substance Ingested seroquel 200 mg: Substance Type: + Prescribed Strength of Substance: 200 Number of Pills Ingested: 20 Total Dose: 4000 Time of Ingestion: 19:55 Intent: suicide attempt Context: Intentional Overdose: depressed and relationship problems (Marital issues) Associated symptoms: depression Treatments Prior to Arrival: none Home Medications Medication Instructions Recorded Confirmed Type cholecalciferol (vitamin D3) 125 5,000 units PO DAILY cap 08/13/19 04/18/21 History mcg (5,000 unit) capsule multivitamin 1 tab PO DAILY 08/13/19 04/18/21 History famotidine 20 mg tablet 20 mg PO DAILY 08/23/19 04/18/21 History lithium carbonate 300 mg 300 mg PO QAM 08/23/19 04/18/21 History tablet,extended release (Lithobid) lurasidone 80 mg tablet (Latuda) 160 mg PO HS 08/23/19 04/18/21 History varenicline 1 mg tablet (Chantix) 1 mg PO DAILY 08/23/19 04/18/21 History colistin (colistimethate Na) 150 75 mg INHALATION BID 10/23/19 04/18/21 History mg solution for injection [id number] 20,000 cap PO UD 10/23/19 04/18/21 History 20,000-63,000-84,000 unit capsule, delayed rel (Zenpep) fenofibrate nanocrystallized 145 145 mg PO DAILY #90 tab 09/29/20 04/18/21 Rx mg tablet levothyroxine 75 mcg tablet 75 mcg PO DAILY #90 tab 11/07/20 04/18/21 Rx aztreonam lysine 75 mg/mL solution 75 mg INHALATION TID 11/26/20 04/18/21 History for nebulization ([place]) elexacaftor 100 mg-tezacaf 3 ea PO DAILY ea 11/26/20 04/18/21 History 50mg-ivacaf 75mg(d)/ivacaf 150mg(n) tablets (Trikafta) ipratropium 0.5 mg-albuterol 3 mg 3 ml INHALATION BID ml 11/26/20 04/18/21 History (2.5 mg base)/3 mL nebulization soln lamotrigine 150 mg tablet 150 mg PO BID 11/26/20 04/18/21 History linaclotide 72 mcg capsule 72 mcg PO DAILY 11/26/20 04/18/21 History (Linzess) lithium carbonate 450 mg 450 mg PO HS tab 11/26/20 04/18/21 History tablet,extended release mirtazapine 15 mg tablet 15 mg PO HS PRN 11/26/20 04/18/21 History quetiapine 200 mg tablet (Seroquel) 200 mg PO HS 11/26/20 04/18/21 History sodium chloride 3 % for 4 ml INHALATION Q8H 11/26/20 04/18/21 History nebulization Novolog U-100 Insulin aspart 100 See Rx Instructions SQ DAILY 90 12/17/20 Rx unit/mL subcutaneous solution Days #9 vial NS (insulin aspart U-100) fluoxetine 20 mg capsule 20 mg PO QAM 04/18/21 04/18/21 History Allergies Allergy/AdvReac Type Severity Reaction Status Date / Time No Known Allergies Allergy Verified 04/09/21 07:09 Past Med/Surg History Medical History Anemia Anticholinergic syndrome Anxiety Bipolar disorder Cystic fibrosis Depression Discharge planning issues Drug overdose DVT prophylaxis Encephalopathy Hypertriglyceridemia Hypothyroidism Prolonged QT interval Schizoaffective disorder Small bowel obstruction Suicide attempt Uncontrolled type 1 diabetes mellitus, with long-term current use of insulin Ventral hernia Surgical History History of cholecystectomy No pertinent past surgical history Family History Mother Bipolar disorder Anxiety Hard of hearing Depression Cancer Hypertension Breast cancer Father Diabetes Hypertension Hard of hearing Lung cancer Brother Depression Grandfather Myocardial infarction Other No significant family history Denies family history of Ovarian cancer Prostate cancer Colorectal cancer Social History Smoking Status: Current every day smoker Tobacco Type: Cigarettes Age Started Using Tobacco: 15; Age Quit Using Tobacco: 34; packs per day: 1; Second Hand Exposure: No; Hx Alcohol Use: No Hx Substance Use: Yes Last Used Substance: Just Prior to Arrival Substance Use Type Other:: overdose seroquel Preferred Language: Bangladeshi Communication Ability: Effective Visual Impairment: Limited Hearing Ability: Normal Liquor Clerk Required: No Beliefs That Will Affect Care: None marital status: Current Living Situation: Spouse current occupational status: employed current occupation: [employer] Feels Safe at Home: Yes Assistive Devices: Glasses Review of Systems A total of 10 systems reviewed and were otherwise negative Physical Exam Vital Signs: Vital Signs - 24 hr 04/17/21 20:42 04/17/21 21:44 04/17/21 22:00 Temperature 36.4 C L Temperature Source Temporal Artery Sc an Pulse Rate 130 H 103 H 94 H Pulse Rate from Sp O2 Sensor 103 H 94 H Respiratory Rate 18 19 18 Respiratory Effort / Characteristics Non-Labored Sponta neous Respiratory Depth Normal Respiratory Patter n Regular Blood Pressure 129/73 102/81 100/78 Blood Pressure Maryse n 91 88 85 Blood Pressure Pos ition Sitting Pulse Oximetry 99 98 97 Oxygen Delivery Me thod Room Air Sepsis Recent Feve r Within 48 Hours No Sepsis New/Unexpla ined Change in Men rakesh Status N/A Sepsis Action Take n by Nursing No Action Required Physical Exam: Physical Exam GENERAL: He is oriented to person, place, and time. He appears well-developed and well-nourished. He does not appear distressed. HENT: Exam performed. - Head: Normocephalic and atraumatic. - Right Ear: External ear normal. No mastoid tenderness. - Left Ear: External ear normal. No mastoid tenderness. - Mouth/Throat: The oropharynx is clear and moist. No trismus in the jaw. No dental abscesses or uvula swelling. No oropharyngeal exudate or tonsillar abscesses. EYES: Conjunctivae and EOM are normal. Pupils are equal, round, and reactive to light. Right eye exhibits no discharge. Left eye exhibits no discharge. No scle ral icterus. NECK: Normal range of motion. Neck supple. No JVD present. No spinous process tenderness present. No carotid bruit present. No rigidity. No tracheal deviation and normal range of motion present. No Brudzinski's sign and no Kernig's sign noted. CV: Tachycardic rate, regular rhythm, normal heart sounds and intact distal pulses. There is no peripheral edema. Palpable radial pulses bue. PULM/CHEST: Effort normal and breath sounds normal. No respiratory distress. No stridor. He has no wheezes. He has no rales. - Chest Wall: He exhibits no tenderness. ABD: The abdomen is soft. Bowel sounds are normal. He has no distension. No mass is present. There is no tenderness. There is no rebound, no guarding, no Walton's sign and no tenderness at McBurney's point. Rovsig negative. MUSC/SKEL: Normal range of motion. There is no peripheral edema, tenderness or deformity. LYMPH: No cervical adenopathy. NEURO: He is alert and oriented to person, place, and time. He has normal strength. No cranial nerve deficit or sensory deficit. Coordination and gait normal. GCS eye subscore is 4. GCS verbal subscore is 5. GCS motor subscore is 6. Cerebellar tests wnl. SKIN: Skin is warm and dry. He is not diaphoretic. PSYCH: Suicidal ideation Course Course 2056: The patient was evaluated in room A7. A complete history and physical exam was performed 2132: Spoke with [facility]. He recommends EKG every 6 hours and magnesium 2 g IV piggyback given his prolonged QTC. He states that the patient should be observed for 6 to 24 hours. He reports that the magnesium should be kept greater than 2. I did ask about bicarb for the prolonged QTC and he recommended against that and instead to give the magnesium. 2244: Vital signs stable. Labs show magnesium 1.9 otherwise unremarkable. Patient will be admitted to the [facility] team for his prolonged QTC due to Seroquel overdose. Dr. Alves team will be notified. 4: Vital signs stable. Patient becoming increasingly somnolent. Accu-Chek 61. Patient's insulin pump was disconnected and the patient was given 1 amp of D50. Patient's oxygen saturation is stable on room air. He does respond to noxious stimuli. I did discuss with the that if the patient becomes increasingly somnolent or starts becoming hypoxic he might need intubation. states she is very hesitant about the patient going on a ventilator as he has cystic fibrosis. I explained to her that at this point the patient does not appear to need intubation or ventilator support however we will have to closely monitor him. Discussed with Dr. Alves admitting team who recommends ABG on the patient. ABG order placed. 2332: ABG shows pH 7.3, PCO2 44, PO2 88, bicarb 22.6. Discussed with Dr. Alves who evaluated the patient and we will place the patient in the ICU for airway monitoring. Administered Medications Magnesium Sulfate/Dextrose (Magnesium Sulfate / D5w) 1 gm in 100 mls @ 100 mls/hr IV Q1H JAVIER Stop: 04/17/21 23:36 Last Admin: 04/17/21 21:56 Dose: 100 mls/hr Documented by: [id number] Discontinued Medications Sodium Chloride (Nss 1000ml) 1,000 mls @ 999 mls/hr IV .Q1H1M JAVIER Stop: 04/17/21 22:00 Last Admin: 04/17/21 21:56 Dose: 999 mls/hr Documented by: [id number] Medical Decision Making Laboratory Data Result diagrams: 04/17/21 21:29 04/17/21 21:29 Lab Results 04/17/21 04/17/21 04/17/21 Range/Units 21:25 21:29 21:29 WBC 5.54 (4.8-10.8) K/uL RBC 3.88 L (4.7-6.1) M/uL Hgb 11.8 L (14.0-18.0) g/dL Hct 36.3 L (42-52) % MCV 93.6 (80-100) fL MCH 30.4 (25-34) pg MCHC 32.5 (32-36) g/dL RDW Std Deviation 45.7 (36.4-46.3) fL RDW Coeff of Jake 13.4 (11.5-14.5) % Plt Count 302 (130-400) K/uL MPV 9.9 (7.4-10.4) fL Immature Gran % (Auto) 0.4 % Neut % (Auto) 69.0 % Lymph % (Auto) 19.7 % Maries % (Auto) 7.8 % Eos % (Auto) 2.7 % Baso % (Auto) 0.4 % Neut # (Auto) 3.83 (1.4-6.5) K/uL Lymph # (Auto) 1.09 L (1.2-3.4) K/uL Maries # (Auto) 0.43 (0.11-0.59) K/uL Eos # (Auto) 0.15 (0-0.5) K/uL Baso # (Auto) 0.02 (0-0.2) K/uL Immature Gran # (Auto) 0.02 (0.00-0.02) K/uL Sodium 139 (136-145) mmol/L Potassium 3.4 L (3.5-5.1) mmol/L Chloride 112 H (98-107) mmol/L Carbon Dioxide 23 (21-32) mmol/L Anion Gap 4.0 (3-11) BUN 13 (7-18) mg/dl Creatinine 1.18 (0.6-1.4) mg/dl Est Cr Clr Drug Dosing 95.3 ml/min Est GFR ( Amer) 88.3 ml/min Est GFR (Non-Af Amer) 76.2 ml/min BUN/Creatinine Ratio 10.7 (10-20) Glucose 123 H (70-99) mg/dl Calcium 9.5 (8.5-10.1) mg/dl Magnesium 1.9 (1.8-2.4) mg/dl Total Bilirubin 0.2 (0.2-1) mg/dl AST 18 (15-37) U/L ALT 25 (12-78) U/L Alkaline Phosphatase 78 (45-117) U/L Total Protein 6.9 (6.4-8.2) gm/dl Albumin 3.7 (3.4-5.0) gm/dl Globulin 3.2 (2.5-4.0) gm/dl Albumin/Globulin Ratio 1.2 (0.9-2) TSH 0.457 (0.300-4.500) uIu/ml Urine Color Yellow Urine Appearance Clear (Clear) Urine pH 6.5 (4.5-7.5) Ur Specific [place] 1.005 (1.000-1.030) Urine Protein Negative (Negative) Urine Glucose (UA) Negative (Negative) Urine Ketones Negative (Negative) Urine Blood Negative (Negative) Urine Nitrite Negative (Negative) Urine Bilirubin Negative (Negative) Urine Urobilinogen Negative (Negative) Ur Leukocyte Esterase Negative (Negative) Salicylates (2.8-20) mg/dl Acetaminophen (10-30) ug/ml [place] (0.6-1.2) mmol/L Ethyl Alcohol mg/dL (0-3) mg/dl 04/17/21 04/17/21 Range/Units 21:29 21:29 WBC (4.8-10.8) K/uL RBC (4.7-6.1) M/uL Hgb (14.0-18.0) g/dL Hct (42-52) % MCV (80-100) fL MCH (25-34) pg MCHC (32-36) g/dL RDW Std Deviation (36.4-46.3) fL RDW Coeff of Jake (11.5-14.5) % Plt Count (130-400) K/uL MPV (7.4-10.4) fL Immature Gran % (Auto) % Neut % (Auto) % Lymph % (Auto) % Maries % (Auto) % Eos % (Auto) % Baso % (Auto) % Neut # (Auto) (1.4-6.5) K/uL Lymph # (Auto) (1.2-3.4) K/uL Maries # (Auto) (0.11-0.59) K/uL Eos # (Auto) (0-0.5) K/uL Baso # (Auto) (0-0.2) K/uL Immature Gran # (Auto) (0.00-0.02) K/uL Sodium (136-145) mmol/L Potassium (3.5-5.1) mmol/L Chloride (98-107) mmol/L Carbon Dioxide (21-32) mmol/L Anion Gap (3-11) BUN (7-18) mg/dl Creatinine (0.6-1.4) mg/dl Est Cr Clr Drug Dosing ml/min Est GFR ( Amer) ml/min Est GFR (Non-Af Amer) ml/min BUN/Creatinine Ratio (10-20) Glucose (70-99) mg/dl Calcium (8.5-10.1) mg/dl Magnesium (1.8-2.4) mg/dl Total Bilirubin (0.2-1) mg/dl AST (15-37) U/L ALT (12-78) U/L Alkaline Phosphatase (45-117) U/L Total Protein (6.4-8.2) gm/dl Albumin (3.4-5.0) gm/dl Globulin (2.5-4.0) gm/dl Albumin/Globulin Ratio (0.9-2) TSH (0.300-4.500) uIu/ml Urine Color Urine Appearance (Clear) Urine pH (4.5-7.5) Ur Specific [place] (1.000-1.030) Urine Protein (Negative) Urine Glucose (UA) (Negative) Urine Ketones (Negative) Urine Blood (Negative) Urine Nitrite (Negative) Urine Bilirubin (Negative) Urine Urobilinogen (Negative) Ur Leukocyte Esterase (Negative) Salicylates 5.2 (2.8-20) mg/dl Acetaminophen < 2 L (10-30) ug/ml [place] 0.7 (0.6-1.2) mmol/L Ethyl Alcohol mg/dL < 3.0 (0-3) mg/dl Imaging Data My Impression: Chest x-ray negative. Airway clear. No pneumothorax. No consolidation. No cardiomegaly or cephalization.. No free air under the diaphragm. No fractures of the skeletal structures. ECG Data Indication: toxicologic Rate (beats per minute): 104 Rhythm: normal sinus Findings: + prolonged QT; no ST depression or no ST elevation MDM Narrative 2056: The patient was evaluated in room A7. A complete history and physical exam was performed 2132: Spoke with [facility]. He recommends EKG every 6 hours and magnesium 2 g IV piggyback given his prolonged QTC. He states that the pat ient should be observed for 6 to 24 hours. He reports that the magnesium should be kept greater than 2. I did ask about bicarb for the prolonged QTC and he recommended against that and instead to give the magnesium. 2244: Vital signs stable. Labs show magnesium 1.9 otherwise unremarkable. Patient will be admitted to the [facility] team for his prolonged QTC due to Seroquel overdose. Dr. Alves team will be notified. 4: Vital signs stable. Patient becoming increasingly somnolent. Accu-Chek 61. Patient's insulin pump was disconnected and the patient was given 1 amp of D50. Patient's oxygen saturation is stable on room air. He does respond to noxious stimuli. I did discuss with the that if the patient becomes increasingly somnolent or starts becoming hypoxic he might need intubation. states she is very hesitant about the patient going on a ventilator as he has cystic fibrosis. I explained to her that at this point the patient does not appear to need intubation or ventilator support however we will have to closely monitor him. Discussed with Dr. Alves admitting team who recommends ABG on the patient. ABG order placed. 2332: ABG shows pH 7.3, PCO2 44, PO2 88, bicarb 22.6. Discussed with Dr. Alves who evaluated the patient and we will place the patient in the ICU for airway monitoring. Impression & Plan Overdose, Prolonged QT interval, Hypoglycemia Critical Care Time Critical Care Time: Yes Total Critical Care Time: 63 I have personally spent greater than 63 minutes of critical care time in the direct management of this patient. This includes bedside care, interpretation of diagnostic studies, and testing, discussion with consultants, patient, and family members, and other required patient management activities. This 63 minutes is in excess of all separately billable procedures. Discharge Plan Visit Data Chief Complaint: Overdose (Intentional) Stated Complaint: OVERDOSE ED Provider: Usama Pineda Discharge Problem: Overdose, Prolonged QT interval, Hypoglycemia Patient Disposition: Admitted As Inpatient Forms Stand Alone Forms: My [facility], Suicide Prevention Resources Prescriptions Prescriptions: No Action fenofibrate nanocrystallized 145 mg tablet 145 mg PO DAILY Qty: 90 RF: 3 levothyroxine 75 mcg tablet 75 mcg PO DAILY Qty: 90 RF: 1 Novolog U-100 Insulin aspart 100 unit/mL solution See Rx Instructions SQ DAILY 90 Days Qty: 9 RF: 3 cholecalciferol (vitamin D3) 5,000 unit capsule 5,000 units PO DAILY RF: 0 Hold Instructions: Switching to 50,000 IU/week x 12 weeks multivitamin tablet 1 tab PO DAILY RF: 0 lamotrigine 150 mg tablet 150 mg PO BID RF: 0 Linzess 72 mcg capsule 72 mcg PO DAILY RF: 0 [place] 75 mg/mL solution for nebulization 75 mg inhalation TID RF: 0 ipratropium-albuterol 0.5 mg-3 mg(2.5 mg base)/3 mL solution for nebulization 3 ml inhalation BID RF: 0 sodium chloride 3 % solution for nebulization 4 ml inhalation Q8H RF: 0 lithium carbonate 450 mg tablet extended release 450 mg PO HS RF: 0 lithium carbonate [Lithobid] 300 mg tablet extended release 300 mg PO QAM RF: 0 famotidine 20 mg tablet 20 mg PO DAILY RF: 0 Chantix 1 mg tablet 1 mg PO DAILY RF: 0 Latuda 80 mg tablet 160 mg PO HS RF: 0 quetiapine [Seroquel] 200 mg tablet 200 mg PO HS RF: 0 Trikafta 100-50-75 mg(d) /150 mg (n) tablets, sequential 3 ea PO DAILY RF: 0 Zenpep 20,000-63,000- 84,000 unit capsule,delayed release(DR/EC) 20,000 cap PO UD RF: 0 colistin (colistimethate Na) 150 mg Recon Soln 75 mg INHALATION BID RF: 0 mirtazapine 15 mg tablet 15 mg PO HS PRN (Reason: sleep) RF: 0 fluoxetine 20 mg capsule 20 mg PO QAM RF: 0 Referrals Referrals: Maxine Cortez MD [Primary Care Provider] - Discharge Problem: Overdose Qualifiers: Encounter type: initial encounter Injury intent: intentional self-harm Qualified Code(s): T50.902A - Poisoning by unspecified drugs, medicaments and biological substances, intentional self-harm, initial encounter
[2021-04-17 22:43] LABS: Amphetamines+Metham, Urine Neg (Neg); Barbiturates, Urine Neg (Neg); Benzodiazepine, Urine Neg (Neg); Cocaine, Urine Neg (Neg); MDMA (Ecstacy), Urine Neg (Neg); Methadone, Urine Neg (Neg); Opiate, Urine Neg (Neg); Phencyclidine, Urine Neg (Neg)
[2021-04-17] MEDS ORDERED: DEXTROSE 50% 50 ML SYRINGE IV ONE (22:55)
--- NOTE | 2021-04-18 00:03 | History & Physical Report ---
Date of Service April 17, 2021 Assessment & Plan (1) Overdose: Plan: 40 yo M w/ pMHx. of type 1 diabetes, cystic fibrosis, depression presenting with intentional overdose from Seroquel admit to ICU Intentional overdose, on Seroquel - approx. 20-30 pills per 2mg Mg given in the ER worsening mental status ABG with pH - 7.3, C02 - 44, p02 - 88, HC02 24; continue to follow EKG w/ QTC 500 - check EKG Q6H - continue to monitor respiratory status for potential need for intubation Depression - holding home medications at this time Cystic fibrosis - continue home duonebs - continue ezdntefwjfq-qvuyytuyqp-[id number] when taking oral medication - continue zenpep - percussion therapy ordered DM I CGM and pump was turned off on admission - pharmacy glycemic consult placed DVT: held Diet: NPO at this time Code: full Dispo: monitor in the ICU for now (2) Prolonged QT interval: (3) Hypoglycemia: History of Present Illness Chief Complaint: intentional overdose Primary Care Provider: Maxine Cortez MD Elio Arguelles is a 40 year old male here with his after an intentional overdose with Seroquel. He has a past medical history significant for cystic fibrosis and type 1 diabetes. He was not able to answer questions due to sedation, but his was there and able to answer questions. He had an argument with his earlier today and at 7:55 PM swallowed a handful of Seroquel. He adds his medications to prior bottles, so she is unclear exactly how many pills he took but she thought maybe 20-30. Dai brought up that he has been cross tapering his antidepressant medications from Paxil to Prozac. His explained that he has been doing well from a pulmonary standpoint with no recent illness. Prior admission in September of 2019 for intentional overdose with Seroquel, admitted to the ICU at that time and did not require intubation. ER course: poison control was called with the recommendation to give Mg. (1gm given) for his prolonged QTC ABG obtained Allergies Allergy/AdvReac Type Severity Reaction Status Date / Time No Known Allergies Allergy Verified 04/09/21 07:09 Home Medications Medication Instructions Recorded Confirmed Type cholecalciferol (vitamin D3) 125 5,000 units PO DAILY cap 08/13/19 04/18/21 History mcg (5,000 unit) capsule multivitamin 1 tab PO DAILY 08/13/19 04/18/21 History famotidine 20 mg tablet 20 mg PO DAILY 08/23/19 04/18/21 History lithium carbonate 300 mg 300 mg PO QAM 08/23/19 04/18/21 History tablet,extended release (Lithobid) lurasidone 80 mg tablet (Latuda) 160 mg PO HS 08/23/19 04/18/21 History varenicline 1 mg tablet (Chantix) 1 mg PO DAILY 08/23/19 04/18/21 History colistin (colistimethate Na) 150 75 mg INHALATION BID 10/23/19 04/18/21 History mg solution for injection [id number] 20,000 cap PO UD 10/23/19 04/18/21 History 20,000-63,000-84,000 unit capsule, delayed rel (Zenpep) fenofibrate nanocrystallized 145 145 mg PO DAILY #90 tab 09/29/20 04/18/21 Rx mg tablet levothyroxine 75 mcg tablet 75 mcg PO DAILY #90 tab 11/07/20 04/18/21 Rx aztreonam lysine 75 mg/mL solution 75 mg INHALATION TID 11/26/20 04/18/21 History for nebulization ([place]) elexacaftor 100 mg-tezacaf 3 ea PO DAILY ea 11/26/20 04/18/21 History 50mg-ivacaf 75mg(d)/ivacaf 150mg(n) tablets (Trikafta) ipratropium 0.5 mg-albuterol 3 mg 3 ml INHALATION BID ml 11/26/20 04/18/21 History (2.5 mg base)/3 mL nebulization soln lamotrigine 150 mg tablet 150 mg PO BID 11/26/20 04/18/21 History linaclotide 72 mcg capsule 72 mcg PO DAILY 11/26/20 04/18/21 History (Linzess) lithium carbonate 450 mg 450 mg PO HS tab 11/26/20 04/18/21 History tablet,extended release mirtazapine 15 mg tablet 15 mg PO HS PRN 11/26/20 04/18/21 History quetiapine 200 mg tablet (Seroquel) 200 mg PO HS 11/26/20 04/18/21 History sodium chloride 3 % for 4 ml INHALATION Q8H 11/26/20 04/18/21 History nebulization Novolog U-100 Insulin aspart 100 See Rx Instructions SQ DAILY 90 12/17/20 04/18/21 Rx unit/mL subcutaneous solution Days #9 vial NS (insulin aspart U-100) fluoxetine 20 mg capsule 20 mg PO QAM 04/18/21 04/18/21 History Past Med/Surg History Medical History Anemia Anticholinergic syndrome Anxiety Bipolar disorder Cystic fibrosis Depression Discharge planning issues Drug overdose DVT prophylaxis Encephalopathy History of gastrostomy tube placement Hypertriglyceridemia Hypothyroidism Prolonged QT interval Schizoaffective disorder Small bowel obstruction Suicide attempt Uncontrolled type 1 diabetes mellitus, with long-term current use of insulin Ventral hernia Surgical History History of cholecystectomy History of Hollie fundoplication No pertinent past surgical history Family History Mother Bipolar disorder Anxiety Hard of hearing Depression Cancer Hypertension Breast cancer Father Diabetes Hypertension Hard of hearing Lung cancer Brother Depression Grandfather Myocardial infarction Other No significant family history Denies family history of Ovarian cancer Prostate cancer Colorectal cancer Social History Smoking Status: Unknown if ever smoked Tobacco Type: Cigarettes Age Started Using Tobacco: 15; Age Quit Using Tobacco: 34; packs per day: 1; Second Hand Exposure: No; Preferred Language: Kazakh Communication Ability: Effective Visual Impairment: Limited Hearing Ability: Normal Specification Writer Required: No Beliefs That Will Affect Care: None marital status: Current Living Situation: Spouse current occupational status: employed current occupation: [employer] Other Information That Helps Us Care for You: No Feels Safe at Home: Yes Assistive Devices: None Review of Systems Review of Systems: Unobtainable due to reduced consciousness Physical Exam Constitutional: + lethargic Eyes: reactive pupils (sluggish) and + abnormal pupil size (3mm) ENMT: external ear and nose normal, oropharynx normal Neck: normal visual inspection Respiratory: - symmetric chest rise - snoring upper airway sounds - no wheezing, rhonchi or rales appreciate - slightly belly breathing Cardiovascular: Rate/Rhythm: regular rate Gastrointestinal (Abdomen): - soft, distended - nTTP - midline scar from prior Hollie and left sided scar from prior G-tube placement Neurologic: + not awake Comatose Patient: + response to noxious stimuli absent Psychiatric: Orientation: + not alert and + not oriented x 3 Results & Data Results & Data ([facility]) Vital Signs (Past 12 Hours) Vital Signs Temp Pulse Resp BP Pulse Ox 04/17/21 23:30 104 H 13 109/88 99 04/17/21 23:00 104 H 24 111/64 98 04/17/21 22:30 88 21 116/87 96 04/17/21 22:00 94 H 18 100/78 97 04/17/21 21:44 103 H 19 102/81 98 04/17/21 20:42 36.4 C L 130 H 18 129/73 99 CBC Results Results Complete Blood Count Results: RBC 3.48 M/uL (4.7-6.1) L 04/18/21 WBC 4.79 K/uL (4.8-10.8) L 04/18/21 Hgb 10.5 g/dL (14.0-18.0) L 04/18/21 Hct 32.4 % (42-52) L 04/18/21 Plt Count 266 K/uL (130-400) 04/18/21 Chemistry (BMP) Results BMP Results: Sodium 142 mmol/L (136-145) 04/18/21 Potassium 3.7 mmol/L (3.5-5.1) 04/18/21 Chloride 114 mmol/L (98-107) H 04/18/21 BUN 9 mg/dl (7-18) 04/18/21 Creatinine 1.01 mg/dl (0.6-1.4) 04/18/21 Glucose 197 mg/dl (70-99) H 04/18/21 Code Status & VTE Plan VTE Prophylaxis Plan VTE Prophylaxis will be ordered: Yes Supervising Physician Co-Signing Physician Notes Patient seen and examined, chart reviewed, case discussed with Dr. Patel and I agree with his assessment and plan as above. In brief, patient is a 40yo male with Type I DM, Cystic Fibrosis, Bipolar disorder/Anxiety with previous suicide attempt by pill overdose presenting from home following intentional overdose of Seroquel. History obtained from at bedside as patient is somnolent and altered. 19:55 following an argument with his the patient reportedly took 20 tablets of Seroquel 200mg in attempt to kill himself. No additional co-ingestants reported Somnolent upon arrival to ER. Marked mental status decline during his ER stay On exam he is somnolent, responsive to noxious stimuli Skin - intact HEENT - NC/AT, PERRL sluggish, MMM Heart - +S1/S2, regular, , no m/r/g Lungs - CTA, patient is somnolent, currently protecting airway Abd - +BS, soft, NT/ND Ext - warm, well perfused, no clubbing/cyanosis or edema Neuro - somnolent, withdraws from painful stimuli, unable to provide verbal response or follow commands Labs and images reviewed [id number], QRS normal Nonspecific ST changes Hypoglycemic on arrival with BSG=60 - responsive to D50 Assessment/Plan - suicidal gesture with Seroquel overdose. 20+ tablets taken at 19:55 - 200mg. Poison control centre contacted by ER staff - recommended Mg, serial EKGs. Peak effect at appx 10 hours upon review of pharmacodynamics. Per 's request I did reach out to his CF specialist from [facility] re: clinical status and any special instructions. At this point he is protecting his airway. He is oxygenating and ventilating appropriately. Concern for his decline in mental status that intubation may be needed - would like to avoid this given patient's history of CF, risk for infection and need for prolonged ventilatory support -Admit to MICU for close monitoring of respiratory status -Management of blood sugar per MICU protocol -quality assurance monitor final, Mg as needed QTc -Serial EKGs -Remainder of plan as above Resident Activity Tracking Resident Involvement: Resident Care Provided Care Provided: Adult Hospital Medicine (1) Overdose Encounter type: initial encounter Injury intent: intentional self-harm Qualified Code(s): T50.902A - Poisoning by unspecified drugs, medicaments and biological substances, intentional self-harm, initial encounter
--- NOTE | 2021-04-18 01:57 | Critical Care Consultation ---
Date of Consultation April 18, 2021 Assessment & Plan (1) Admitted to intensive care unit: Reason Critically Ill: 40-year-old male with intentional Seroquel overdose and impending state requiring close hemodynamic monitoring and airway monitoring status post ingestion. NEURO - * CAM ICU: Unable to assess secondary to mental status * Obtunded state: * Patient with worsening mental status and obtunded state during ER evaluation and at time of admission. * No seizure activity noted. * Withdraws to painful stimuli. * Protecting airway. * Respiratory rate appropriate. * No focal neurological deficits on exam. PSYCH - * Suicide attempt: * Presumed active suicidality with overdose of Seroquel. * Patient ingested 20-30, 200 mg Seroquel tablets after an argument with his . * History of prior suicide attempt with Seroquel overdose as well. * Previous inpatient stays secondary to mental health disorder. * Patient with slight QTC prolongation. Received magnesium in the emergency department. * Monitor for respiratory depression or inability to protect airway with need for intubation. * Monitor for ventricular dysrhythmias in the setting of Seroquel overdose. * Monitor for hemodynamic instability and need for intervention. * Patient will require inpatient psychiatric evaluation upon return to baseline. * Suicide precautions per hospital protocol. CARDIAC/VASCULAR - * QTc prolongation: * Secondary to Seroquel ingestion. * QTc improving currently. * EKG: Sinus tachycardia at [address] or T wave abnormalities noted. QTc 502 ms. QRS 98 ms. * Monitor on telemetry. RESPIRATORY - * Need for airway monitoring: * Low threshold for endotracheal intubation secondary to Seroquel overdose and risk for respiratory depression. * Will monitor end-tidal CO2 in conjunction with ABGs to assess for oxygenation/ventilation disorders. * Consider addition of CPAP as patient is breathing normally currently. * Concerning in the cystic fibrotic patient. * Agree with chest PT. * Continue home nebs/treatments. GI/NUTRITION - * N.p.o. until mental status improves. RENAL/LYTES - * No significant electrolyte derangements. * IVF: Normosol at 80 mL's per hour. - * Alaniz in place - Strict I&Os. ENDO - * DM with hypoglycemic episode in the ED. * BSGs per unit protocol. ISS --> gtt per unit policy. HEME - * Stable H&H ID - * No concerns for infectious contribution. LINES/IV ACCESS - * PIVs x2 * Alaniz DVT PROPHYLAXIS - * SCDs * SCDs I have personally spent 45 minutes of critical care time in the direct management of this patient. This is a life/limb threatening event. This includes time spent evaluating patient, direct bedside care, chart review, placing orders, interpretation of diagnostic studies, discussion with consultants, patient, and family members, as well as other required patient management activities. This time is exclusive of all separately billable procedures, and teaching time and separate from and in addition to any other critical care service time. Thank you for allowing us to participate in the care of this patient. Please refer to my attending physician's documentation for any further recommendations. (2) Overdose: (3) Suicide attempt: (4) Prolonged QT interval: (5) Depression: (6) Cystic fibrosis: Supervising Physician Co-Signing Physician Notes Patient separately seen and examined. We will continue with EKGs every 6 hours. Patient somnolent. Repeat BMP and lithium level. Check ammonia level. Continue monitoring in the ICU. Continue IV fluids. History of Present Illness Attending Physician: Becky Alves DO History of Present Illness Patient is a 40-year-old male with a significant past medical history of cystic fibrosis, diabetes mellitus, bipolar disorder, depression, and suicidality. Per conversation with colleagues and chart review, the patient reportedly had an argument with his and promptly ingested 20-30 of his 200 mg Seroquel tablets. The patient has had a previous suicide attempt with Seroquel ingestion in September 2019. Patient was somnolent and did not provide historical information in the emergency department. Poison control was contacted and the patient did receive 2 g of IV magnesium for QTC prolongation of 502 ms. Patient remained obtunded. Patient admitted to the ICU for ongoing management and airway evaluation in the event of further obtunded state and need for emergent endotracheal intubation. Upon evaluation in the ICU, the patient is obtunded. He responds to painful stimuli. He withdraws from pain. He is unable to contribute to history of present illness. Allergies Allergy/AdvReac Type Severity Reaction Status Date / Time No Known Allergies Allergy Verified 04/09/21 07:09 Home Medications Medication Instructions Recorded Confirmed Type cholecalciferol (vitamin D3) 125 5,000 units PO DAILY cap 08/13/19 04/18/21 History mcg (5,000 unit) capsule multivitamin 1 tab PO DAILY 08/13/19 04/18/21 History famotidine 20 mg tablet 20 mg PO DAILY 08/23/19 04/18/21 History lithium carbonate 300 mg 300 mg PO QAM 08/23/19 04/18/21 History tablet,extended release (Lithobid) lurasidone 80 mg tablet (Latuda) 160 mg PO HS 08/23/19 04/18/21 History varenicline 1 mg tablet (Chantix) 1 mg PO DAILY 08/23/19 04/18/21 History colistin (colistimethate Na) 150 75 mg INHALATION BID 10/23/19 04/18/21 History mg solution for injection [id number] 20,000 cap PO UD 10/23/19 04/18/21 History 20,000-63,000-84,000 unit capsule, delayed rel (Zenpep) fenofibrate nanocrystallized 145 145 mg PO DAILY #90 tab 09/29/20 04/18/21 Rx mg tablet levothyroxine 75 mcg tablet 75 mcg PO DAILY #90 tab 11/07/20 04/18/21 Rx aztreonam lysine 75 mg/mL solution 75 mg INHALATION TID 11/26/20 04/18/21 History for nebulization ([place]) elexacaftor 100 mg-tezacaf 3 ea PO DAILY ea 11/26/20 04/18/21 History 50mg-ivacaf 75mg(d)/ivacaf 150mg(n) tablets (Trikafta) ipratropium 0.5 mg-albuterol 3 mg 3 ml INHALATION BID ml 11/26/20 04/18/21 History (2.5 mg base)/3 mL nebulization soln lamotrigine 150 mg tablet 150 mg PO BID 11/26/20 04/18/21 History linaclotide 72 mcg capsule 72 mcg PO DAILY 11/26/20 04/18/21 History (Linzess) lithium carbonate 450 mg 450 mg PO HS tab 11/26/20 04/18/21 History tablet,extended release mirtazapine 15 mg tablet 15 mg PO HS PRN 11/26/20 04/18/21 History quetiapine 200 mg tablet (Seroquel) 200 mg PO HS 11/26/20 04/18/21 History sodium chloride 3 % for 4 ml INHALATION Q8H 11/26/20 04/18/21 History nebulization Novolog U-100 Insulin aspart 100 See Rx Instructions SQ DAILY 90 12/17/20 04/18/21 Rx unit/mL subcutaneous solution Days #9 vial NS (insulin aspart U-100) fluoxetine 20 mg capsule 20 mg PO QAM 04/18/21 04/18/21 History Patient History Medical History Anemia Anticholinergic syndrome Anxiety Bipolar disorder Cystic fibrosis Depression Discharge planning issues Drug overdose DVT prophylaxis Encephalopathy History of gastrostomy tube placement Hypertriglyceridemia Hypothyroidism Prolonged QT interval Schizoaffective disorder Small bowel obstruction Suicide attempt Uncontrolled type 1 diabetes mellitus, with long-term current use of insulin Ventral hernia Surgical History History of cholecystectomy History of Hollie fundoplication No pertinent past surgical history Family History Mother Bipolar disorder Anxiety Hard of hearing Depression Cancer Hypertension Breast cancer Father Diabetes Hypertension Hard of hearing Lung cancer Brother Depression Grandfather Myocardial infarction Other No significant family history Denies family history of Ovarian cancer Prostate cancer Colorectal cancer Social History Smoking Status: Unknown if ever smoked Tobacco Type: Cigarettes Age Started Using Tobacco: 15; Age Quit Using Tobacco: 34; packs per day: 1; Second Hand Exposure: No; Preferred Language: Omani Communication Ability: Effective Visual Impairment: Limited Hearing Ability: Normal Can Cleaner Required: No Beliefs That Will Affect Care: None marital status: Current Living Situation: Spouse current occupational status: employed current occupation: [employer] Other Information That Helps Us Care for You: No Feels Safe at Home: Yes Assistive Devices: None Review of Systems Review of Systems: Unobtainable due to mental health condition and Unobtainable due to reduced consciousness Physical Exam Physical Exam: VITAL SIGNS - Vital signs and nursing notes were reviewed. GENERAL - 40-year-old male appearing his stated age who is obtunded. Withdraws to painful stimuli. SKIN - Without rashes. HEAD - NC/AT. EYES - Pupils equal and round. Sluggish to light. EARS - No deformities of external structures noted on gross examination bilaterally. NOSE - Midline and without cyanosis. No epistaxis or purulent drainage noted. MOUTH/OROPHARYNX - Without perioral cyanosis. Buccal mucosa pink and dry. NECK - Supple to palpation. No nuchal rigidity. LUNGS - Chest wall symmetric without accessory muscle use, intercostals retractions, or central cyanosis. Normal vesicular breath sounds CTA B/L. Upper airway congestion noted. CARDIAC - RRR with S1/S2. No murmur, rubs, or gallops appreciated. ABDOMEN - Abdominal contour protuberant without pulsations or visible masses. BS normoactive all four quadrants. No tenderness, palpable masses, hepatosplenomegaly, or ascites noted. EXTREMITIES - No clubbing or peripheral cyanosis. No pretibial edema present. +3/5 radial, posterior tibial, and dorsalis pedis pulses palpated throughout. +5/5 strength noted in UE/LE bilaterally. NEUROLOGIC - No focal neurological deficits noted. Withdraws and moans to painful stimuli. PSYCH - Unable to assess currently. Suicidality per reported Seroquel overdose. Results & Data Results & Data ([facility]) Vital Signs (Past 12 Hours) Vital Signs Temp Pulse Resp BP Pulse Ox 04/18/21 01:00 98 H 17 95/80 L 97 04/18/21 00:30 96 H 18 95/74 L 96 04/18/21 00:00 100 H 19 99/75 L 97 04/17/21 23:30 104 H 13 109/88 99 04/17/21 23:00 104 H 24 111/64 98 04/17/21 22:30 88 21 116/87 96 04/17/21 22:00 94 H 18 100/78 97 04/17/21 21:44 103 H 19 102/81 98 04/17/21 20:42 36.4 C L 130 H 18 129/73 99 Coding Level of Care Code Critical Care 1st 30-74 mins Diagnoses Admitted to intensive care unit Z78.9 Overdose T50. Encounter type: initial encounter Injury intent: intentional self-harm Suicide attempt T14.91XA Prolonged QT interval R94.31 Depression F32.9 Cystic fibrosis E84.9 Time Spent (min) 45 (1) Overdose Encounter type: initial encounter Injury intent: intentional self-harm Qualified Code(s): T50.902A - Poisoning by unspecified drugs, medicaments and biological substances, intentional self-harm, initial encounter
[2021-04-18 02:49] LABS: iSTAT Allen Test Pass; iSTAT Art Bld Gas pCO2 Correct 42 mmHg (35-46); iSTAT Art Bld Gas pH Corrected 7.319 (7.35-7.45); iSTAT Arterial Blood Gas HCO3 22 meg/L (19-24); iSTAT Arterial Blood Gas pCO2 45 mmHg (35-46); iSTAT Arterial Blood Gas pH 7.29 (7.35-7.45); iSTAT Arterial Blood Gas pO2 68 mmHg (80-95); iSTAT Arterial Blood Gas pO2 C 60; iSTAT Carbon Dioxide 23 mmol/L (24-31); iSTAT Hematocrit 32 % (42-52); iSTAT Hemoglobin 10.9 g/dl (14.0-18.0); iSTAT Potassium 3.7 mmol/L (3.3-5.0); iSTAT Site R Radial; iSTAT Sodium 143 mmol/L (135-144)
[2021-04-18] MEDS ORDERED: PHARMACY GLYCEMIC MGMT CONSULT PRN (03:39)
[2021-04-18] MEDS ORDERED: CARBOHYDRATES FOR HYPOGLYCEMIA PO PRN (04:00)
[2021-04-18] MEDS ORDERED: GLUCAGON FOR INJ 1 MG VIAL IM PRN (04:00)
[2021-04-18] MEDS ORDERED: DEXTROSE 50% 50 ML SYRINGE IV PRN (04:00)
[2021-04-18] MEDS ORDERED: GLUCOSE 40% GEL 15 GM TUBE PO PRN (04:00)
[2021-04-18] MEDS ORDERED: GLUCOSE 10 TABS/TUBE PO PRN (04:00)
[2021-04-18 05:24] LABS: Basophils # (auto) 0.02 K/uL (0-0.2); Basophils % (auto) 0.4 %; Eosinophils # (auto) 0.19 K/uL (0-0.5); Hematocrit (blood only) 32.4 % (42-52); Hemoglobin 10.5 g/dL (14.0-18.0); Immature Granulocytes # (auto) 0.02 K/uL (0.00-0.02); Immature Granulocytes % (auto) 0.4 %; Lymphocytes # (auto) 1.28 K/uL (1.2-3.4); Lymphocytes % (auto) 26.7 %; Mean Corpuscular Hemoglobin 30.2 pg (25-34); Mean Corpuscular Hgb Conc 32.4 g/dL (32-36); Mean Corpuscular Volume 93.1 fL (80-100); Mean Platelet Volume 9.2 fL (7.4-10.4); Monocytes % (auto) 6.3 %; Neutrophils # (auto) 2.98 K/uL (1.4-6.5); Neutrophils % (auto) 62.2 %; Platelet Count 266 K/uL (130-400); RDW Coefficient of Variation 13.5 % (11.5-14.5); RDW Standard Deviation 45.5 fL (36.4-46.3); Red Blood Count 3.48 M/uL (4.7-6.1); White Blood Count 4.79 K/uL (4.8-10.8)
[2021-04-18] MEDS: NORMOSOL-R 1,000 ML IV SCH ×2 (05:24→16:17)
[2021-04-18] MEDS ORDERED: LANTUS PER UNIT CHARGE SQ ONE (05:30)
[2021-04-18] MEDS: LEVOTHYROXINE SODIUM 75 MCG TABLET PO SCH (05:39)
[2021-04-18 05:41] LABS: Albumin Level 3.3 gm/dl (3.4-5.0); BUN Creatinine Ratio 10.3 (10-20); Bilirubin Direct 0.1 mg/dl (0-0.2); Creatinine Clr Calc Pharmacy 113.1 ml/min; Est GFR (African American) 109.2 ml/min; Est GFR (Non-African American) 94.2 ml/min; Magnesium 2.2 mg/dl (1.8-2.4); Potassium 3.7 mmol/L (3.5-5.1)
[2021-04-18] MEDS: INSULIN ASPART 100 UNITS/ML 3 ML PEN SC SCH ×5 (05:42→20:01)
[2021-04-18 05:44] LABS: Bilirubin,Total 0.3 mg/dl (0.2-1); Phosphorus 3.1 mg/dl (2.5-4.9); Total Protein 6.1 gm/dl (6.4-8.2)
[2021-04-18 06:01] LABS: iSTAT Allen Test Pass; iSTAT Art Bld Gas pCO2 Correct 44 mmHg (35-46); iSTAT Art Bld Gas pH Corrected 7.311 (7.35-7.45); iSTAT Arterial Blood Gas HCO3 22 meg/L (19-24); iSTAT Arterial Blood Gas pCO2 45 mmHg (35-46); iSTAT Arterial Blood Gas pH 7.31 (7.35-7.45); iSTAT Arterial Blood Gas pO2 73 mmHg (80-95); iSTAT Arterial Blood Gas pO2 C 71; iSTAT Carbon Dioxide 24 mmol/L (24-31); iSTAT Hematocrit 30 % (42-52); iSTAT Hemoglobin 10.2 g/dl (14.0-18.0); iSTAT Potassium 3.6 mmol/L (3.3-5.0); iSTAT Site R Radial; iSTAT Sodium 142 mmol/L (135-144)
[2021-04-18] MEDS ORDERED: ALBUT/IPRATROP 3MG/0.5MG NEB 3 ML VIAL INH SCH (07:00)
[2021-04-18 07:06] LABS: Estimated Average Glucose 160 mg/dl; Hemoglobin A1C 7.2 % (4.5-5.6)
--- NOTE | 2021-04-18 07:44 | XRay Report ---
XR chest 1V portable CLINICAL HISTORY: Overdose. COMPARISON STUDY: Chest radiograph May 07, 2015. FINDINGS: Low lung volumes are noted. Enlargement of the cardiac silhouette is accentuated on this hy poventilatory study. There are apparent bibasilar opacities. There is no evidence for pulmonary edema . There is no pneumothorax or pleural effusion. IMPRESSION: Hypoventilatory study with accentuation of the cardiac silhouette and apparent bibasilar opacities which probably reflect atelectasis. An infectious process is considered likely but cannot be excluded. ACT 112: Negative or not required by law. Electronically signed by: Francisco Cortez M.D. 04/18/2021 7:43 AM
[2021-04-18] MEDS: ZENPEP PO SCH ×3 (08:57→16:16)
[2021-04-18] MEDS: TRIKAFTA PO SCH ×2 (08:59→16:16)
--- NOTE | 2021-04-18 09:41 | Hospitalist Progress Note ---
Date of Service April 18, 2021 Assessment & Plan (1) Overdose: Plan: 40yo male with PMH notable for cystic fibrosis, T1DM, MDD, history of parasuicidal behavior presents with intentional overdose of quetiapine. 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 Quetiapine toxicity Patient with reassuring gradual improvement in mental status Frequent repeat EKG to monitor QTc prolongation Management per ICU Psychiatry consulted Depression, parasuicidal behavior Home medications held at this time Psychiatry consulted Cystic fibrosis Continue home CF regimen Continue percussion therapy Contact precautions T1DM CGM and pump turned off on admission Managment per glycemic consult FEN: NPO Code status: full code DVT ppx: held Isolation: contact Consults: critical care Dispo: ICU (2) Prolonged QT interval: (3) Hypoglycemia: Admission and Anticipated Discharge Date Admission Date: April 17, 2021 Supervising Physician Co-Signing Physician Notes I personally examined the patient and verified all pa points of history and exam, discussed case, and agree with decision making with Dr Feliciano. Awake, talking nonsensically. notes that he has had times where he is lucid. Vitals noted, in general he is awake does not appear in physical distress, at some point is relaxing at other times I starting around the room and speaking very rapidfire with pressured speech and somewhat difficult to discern words. Breathing is unlabored although coarse rhonchi heard even from the bedside. Seroquel overdose, type 1 diabetes, cystic fibrosisappears to be improving from the overdose, otherwise overall stable. Continue current care and follow. Otherwise as above Subjective Patient seen and evaluated at bedside this morning. Patient stuporous - stirs minimally to verbal stimulation but immediately falls back asleep. ROS unobtainable. Review of Systems Review of Systems: See HPI Physical Exam Physical Exam: Constitutional: laying in bed snoring HEENT: NCAT, no conjunctival injection CV: regular rhythm, no murmur appreciated, extremities well-perfused, no LE edema Resp: loud inspiratory rhonchi heard throughout Neuro: stuporous Results & Data Results & Data ([facility]) Vital Signs (Past 12 Hours) Vital Signs Temp Pulse Pulse Pulse Resp BP BP 04/18/21 07:41 89 16 04/18/21 07:40 89 16 04/18/21 05:58 90 127/84 04/18/21 05:50 92 H 04/18/21 05:49 36.6 C 04/18/21 05:45 91 H 04/18/21 05:28 92 H 113/77 04/18/21 05:13 93 H 118/81 04/18/21 04:58 94 H 113/86 04/18/21 04:43 98 H 130/93 04/18/21 04:28 94 H 114/81 04/18/21 04:12 91 H 108/76 04/18/21 03:57 92 H 98/77 L 04/18/21 03:47 36.6 C 04/18/21 03:43 92 H 95/77 L 04/18/21 03:28 93 H 98/73 L 04/18/21 03:13 96 H 105/79 04/18/21 02:58 35.7 C L 95 H 108/71 04/18/21 02:43 35.6 C L 96 H 98/72 L 04/18/21 02:30 36.7 C 04/18/21 02:28 35.6 C L 99 H 106/71 04/18/21 02:12 98 H 108/80 04/18/21 02:04 102 H 20 04/18/21 01:57 101 H 116/77 04/18/21 01:55 35.9 C L 111 H 16 134/101 H 04/18/21 01:43 108 H 20 107/92 04/18/21 01:27 111 H 18 04/18/21 01:25 35.9 C L 112 H 04/18/21 01:00 98 H 17 95/80 L 04/18/21 00:30 96 H 18 95/74 L 04/18/21 00:00 100 H 19 99/75 L 04/17/21 23:30 104 H 13 109/88 04/17/21 23:00 104 H 24 111/64 04/17/21 22:30 88 21 116/87 04/17/21 22:00 94 H 18 100/78 04/17/21 21:44 103 H 19 102/81 Pulse Ox 04/18/21 07:41 99 04/18/21 07:40 99 04/18/21 05:58 97 04/18/21 05:50 98 04/18/21 05:49 04/18/21 05:45 98 04/18/21 05:28 97 04/18/21 05:13 97 04/18/21 04:58 97 04/18/21 04:43 98 04/18/21 04:28 100 04/18/21 04:12 97 04/18/21 03:57 98 04/18/21 03:47 04/18/21 03:43 98 04/18/21 03:28 98 04/18/21 03:13 98 04/18/21 02:58 98 04/18/21 02:43 98 04/18/21 02:30 04/18/21 02:28 96 04/18/21 02:12 95 04/18/21 02:04 95 04/18/21 01:57 94 04/18/21 01:55 100 04/18/21 01:43 96 04/18/21 01:27 99 04/18/21 01:25 04/18/21 01:00 97 04/18/21 00:30 96 04/18/21 00:00 97 04/17/21 23:30 99 04/17/21 23:00 98 04/17/21 22:30 96 04/17/21 22:00 97 04/17/21 21:44 98 Resident Activity Tracking Resident Involvement: Resident Care Provided Care Provided: Adult Hospital Medicine (1) Overdose Encounter type: initial encounter Injury intent: intentional self-harm Qualified Code(s): T50.902A - Poisoning by unspecified drugs, medicaments and biological substances, intentional self-harm, initial encounter
[2021-04-18] MEDS ORDERED: Nursing to Pharmacy Communication SCH (09:45)
--- NOTE | 2021-04-18 09:45 | Electrocardiogram Report ---
Test Reason : Blood Pressure : / mmHG Vent. Rate : 104 BPM Atrial Rate : 104 BPM P-R Int : 154 ms QRS Dur : 098 ms QT Int : 382 ms P-R-T Axes : 037 017 026 degrees QTc Int : 502 ms Sinus tachycardia RSR' or QR pattern in V1 suggests right ventricular conduction delay Nonspecific ST and T wave abnormality Abnormal ECG When compared with ECG of 23-OCT-2019 11:37, No significant change was found Confirmed by Suleiman Orellana ([id number]) on 04/18/2021 9:45:11 AM Referred By: REFERRED SELF Confirmed By:Suleiman Orellana
--- NOTE | 2021-04-18 09:54 | Electrocardiogram Report ---
Test Reason : Blood Pressure : / mmHG Vent. Rate : 111 BPM Atrial Rate : 111 BPM P-R Int : 170 ms QRS Dur : 100 ms QT Int : 352 ms P-R-T Axes : 047 027 034 degrees QTc Int : 478 ms Poor data quality, interpretation may be adversely affected Sinus tachycardia RSR' or QR pattern in V1 suggests right ventricular conduction delay Nonspecific ST and T wave abnormality Abnormal ECG When compared with ECG of 17-APR-2021 21:25, (unconfirmed) No significant change was found Confirmed by Suleiman Orellana ([id number]) on 04/18/2021 9:54:06 AM Referred By: REFERRED SELF Confirmed By:Suleiman Orellana
[2021-04-18 10:36] LABS: BUN Creatinine Ratio 8.7 (10-20); Calcium 9.3 mg/dl (8.5-10.1); Creatinine Clr Calc Pharmacy 109.5 ml/min; Est GFR (African American) 106.6 ml/min; Potassium 3.7 mmol/L (3.5-5.1)
--- NOTE | 2021-04-18 11:15 | Pharmacy Report ---
Pharmacy Glycemic Short Note 2 - Date of Service April 18, 2021 - Glycemic Short BSG Results (Last 24 hours): 04/17/21 04/17/21 04/17/21 21:29 22:56 23:12 Glucose 123 H POC Glucose 61 L* 184 H 04/18/21 04/18/21 04/18/21 00:11 01:30 04:42 Glucose POC Glucose 165 H 166 H 205 H 04/18/21 04/18/21 04/18/21 05:11 08:06 09:56 Glucose 209 H 197 H POC Glucose 189 H OUTPATIENT ANTIDIABETIC REGIMEN: * A1c = 7.2 % * Per family member: Novolog Insulin pump * Basal: 0.7 units/hr (16.8 units/day) * CF 1:80, CR 1:25 ASSESSMENT: * Elio is 40 yo T1DM male admitted s/p seroquel overdose * Patient is maintained on a novolog insulin pump at home. Pump was disconnected upon arrival. Patient was started on SQ basal + bolus insulin. * Will continue reduced dose of basal insulin for NPO status * Continue frequent monitoring (q4h) until patient is more stable and insulin needs are better known. PLAN FOR INPATIENT GLYCEMIC CONTROL: * Insulin pump on hold * Basal insulin * Lantus 12 units SQ x 1 * Re-evaluate dose on 04/19 AM * Bolus insulin * NovoLog per scale ACHS or Q6hrs while NPO * Goal Range: Low 110 mg/dL - High 140 mg/dL * Correction Factor: 70 mg/dL/unit * Nutritional / Prandial insulin per carb ratio of 1 unit per 20 grams CHO consumed PLAN FOR DISCHARGE: * to be determined
[2021-04-18] MEDS: LEVALBUTEROL HCL 0.63 MG/3 ML NEB NEB SCH ×2 (12:33→18:52)
[2021-04-18] MEDS ORDERED: INSULIN ASPART 100 UNITS/ML 3 ML PEN SC ONE (15:00)
--- NOTE | 2021-04-18 18:19 | Billing Data ---
Date of Service April 18, 2021 Coding Level of Care Code 34793 Subseq Hosp Care Lvl 1
[2021-04-18] MEDS: SODIUM CHLOR 7% 4 ML NEB NEB SCH (19:08)
[2021-04-18] MEDS: DORNASE ALFA 2.5 ML AMP INH SCH (19:20)
[2021-04-18] MEDS: COLISTIN INH SCH (19:45)
[2021-04-18] MEDS ORDERED: INSULIN GLARGINE SOLOSTAR 100 UNITS/ML 3 ML PEN SC SCH (21:00)
[2021-04-19] MEDS: LEVALBUTEROL HCL 0.63 MG/3 ML NEB NEB SCH ×4 (00:08→20:00)
[2021-04-19] MEDS: INSULIN ASPART 100 UNITS/ML 3 ML PEN SC SCH ×7 (00:12→23:33)
--- NOTE | 2021-04-19 02:15 | Billing Data ---
Date of Service April 17, 2021 Coding Level of Care Code Critical Care 1st - mins
[2021-04-19] MEDS: NORMOSOL-R 1,000 ML IV SCH ×2 (03:27→14:20)
[2021-04-19] MEDS: LEVOTHYROXINE SODIUM 75 MCG TABLET PO SCH (05:11)
[2021-04-19 05:13] LABS: Basophils # (auto) 0.01 K/uL (0-0.2); Basophils % (auto) 0.1 %; Eosinophils # (auto) 0.06 K/uL (0-0.5); Eosinophils % (auto) 0.5 %; Hematocrit (blood only) 35.1 % (42-52); Hemoglobin 11.4 g/dL (14.0-18.0); Immature Granulocytes # (auto) 0.03 K/uL (0.00-0.02); Immature Granulocytes % (auto) 0.3 %; Lymphocytes # (auto) 0.65 K/uL (1.2-3.4); Lymphocytes % (auto) 5.5 %; Mean Corpuscular Hemoglobin 30.6 pg (25-34); Mean Corpuscular Hgb Conc 32.5 g/dL (32-36); Mean Corpuscular Volume 94.4 fL (80-100); Mean Platelet Volume 10.2 fL (7.4-10.4); Monocytes # (auto) 0.94 K/uL (0.11-0.59); Monocytes % (auto) 7.9 %; Neutrophils # (auto) 10.19 K/uL (1.4-6.5); Neutrophils % (auto) 85.7 %; Platelet Count 308 K/uL (130-400); RDW Standard Deviation 48.4 fL (36.4-46.3); Red Blood Count 3.72 M/uL (4.7-6.1); White Blood Count 11.88 K/uL (4.8-10.8)
[2021-04-19 05:31] LABS: Albumin Level 3.4 gm/dl (3.4-5.0); BUN Creatinine Ratio 10.9 (10-20); Calcium 8.7 mg/dl (8.5-10.1); Creatinine Clr Calc Pharmacy 124.2 ml/min; Est GFR (African American) 123.1 ml/min; Est GFR (Non-African American) 106.2 ml/min; Potassium 3.8 mmol/L (3.5-5.1)
[2021-04-19 05:39] LABS: Bilirubin Direct 0.1 mg/dl (0-0.2); Bilirubin,Total 0.4 mg/dl (0.2-1); Phosphorus 2.5 mg/dl (2.5-4.9); Total Protein 6.7 gm/dl (6.4-8.2)
[2021-04-19 05:48] LABS: Base Excess VBG -3.1 mEq/L; Oxygen Saturation VBG 74.6 %; pH VBG 7.37 (7.36-7.41)
--- NOTE | 2021-04-19 07:01 | XRay Report ---
XR chest 1V portable CLINICAL HISTORY: f/u COMPARISON STUDY: Chest radiograph April 17, 2021. FINDINGS: Lung volumes are diminished. This is unchanged. There is no pneumothorax or pleural effusio n. Enlargement of the cardiac silhouette is unchanged. There is apparent slight asymmetric interstiti al thickening within the right lung. There is mild left basilar opacity. IMPRESSION: 1. Low lung volumes. Apparent slight asymmetric interstitial thickening within the right lung and mil d left basilar opacity. An infectious process cannot be excluded. 2. Enlargement of the cardiac silhouette, accentuated on this exam. ACT 112: Negative or not required by law. Electronically signed by: Francisco Cortez M.D. 04/19/2021 6:59 AM
[2021-04-19] MEDS: SODIUM CHLOR 7% 4 ML NEB NEB SCH ×2 (07:25→20:01)
[2021-04-19] MEDS: DORNASE ALFA 2.5 ML AMP INH SCH ×2 (07:25→20:01)
[2021-04-19] MEDS: COLISTIN INH SCH ×2 (07:27→20:06)
[2021-04-19] MEDS: TRIKAFTA PO SCH ×2 (07:50→17:19)
[2021-04-19] MEDS: ZENPEP PO SCH ×3 (07:50→17:15)
[2021-04-19] MEDS ORDERED: INSULIN GLARGINE SOLOSTAR 100 UNITS/ML 3 ML PEN SC SCH (09:00)
--- NOTE | 2021-04-19 10:03 | Critical Care Progress Note ---
Date of Service April 19, 2021 Assessment & Plan (1) Admitted to intensive care unit: Plan: Reason Critically Ill: 40-year-old male with with a past medical history of depression and cystic fibrosis presenting to the hospital due to intentional drug overdose with Seroquel. NEURO -recovering from his overdose. Continues to have occasional delirium. Holding psychiatric meds at this time. Psychiatry consult is pending. Currently on a 302. [place] level is within normal limits. Urine drug screens were negative. Ammonia level was mildly elevated yesterday, but improved to normal today. CARDIAC/VASCULAR - * QTc prolongation: * Secondary to Seroquel ingestion. * QTc improving currently. RESPIRATORY -no acute issues at present. Continue chronic cystic fibrosis medications. GI/NUTRITION -advance diet as tolerated. LFTs within normal limits. RENAL/LYTES - * No significant electrolyte derangements. * IVF: Normosol at 80 mL's per hour. - * Alaniz in place - Strict I&Os. ENDO - * DM with hypoglycemic episode in the ED. * BSGs per unit protocol. ISS --> gtt per unit policy. * TSH normal. HEME - * Stable H&H ID -on inhaled colistin for history of Pseudomonas. Continue. LINES/IV ACCESS - * PIVs x2 * Alaniz DVT PROPHYLAXIS - * SCDs Patient stable for transfer to the floor. (2) Overdose: (3) Suicide attempt: (4) Prolonged QT interval: (5) Depression: (6) Cystic fibrosis: Admission and Anticipated Discharge Date Admission Date: April 17, 2021 Subjective Patient seen and examined. He mumbles frequently and it is difficult to understand what he saying. He is not oriented to place. He is much more awake than he was yesterday. He denies any complaint currently. Review of Systems Review of Systems: Limited due to the patient's altered mental status. Physical Exam Physical Exam: Constitutional: Patient appears to be of their stated age. Patient is in no apparent distress. Patient is well-developed. Eyes: Pupils are equal round and reactive to light. Conjunctivae are normal. Anicteric sclera. Ears nose, mouth and throat: Mallampati class 2. Normal posterior oropharynx. Uvula is midline. Neck: Trachea is midline. Visual inspection is normal. Respiratory: Mild crackles noted bilaterally. Cardiovascular: Tachycardic. No murmurs. Gastrointestinal: Normal bowel sounds, soft, nontender and nondistended. No hepatosplenomegaly noted. Scars noted on his abdomen. Musculoskeletal: No cyanosis. Patient is able to move all extremities. Strength is 5 out of 5 in the upper and lower extremities. Skin: No rashes, warm dry and intact. Neurologic: No obvious focal neurological deficits seen. Psychiatric: Disoriented at times. Appears mildly agitated. Results & Data Results & Data ([facility]) Vital Signs (Past 12 Hours) Vital Signs Temp Pulse Pulse Resp BP Pulse Ox 04/19/21 08:00 104 H 04/19/21 07:33 108 H 22 97 04/19/21 06:28 104 H 34 H 152/91 H 99 04/19/21 06:13 106 H 33 H 134/93 98 04/19/21 06:00 106 H 33 H 137/92 99 04/19/21 05:43 107 H 20 130/94 04/19/21 05:42 98.4 F 04/19/21 05:28 103 H 23 135/96 97 04/19/21 05:13 103 H 33 H 148/87 H 100 04/19/21 04:58 102 H 31 H 146/87 H 100 04/19/21 04:44 102 H 21 139/95 100 04/19/21 04:28 105 H 31 H 155/85 H 100 04/19/21 04:14 106 H 31 H 149/81 H 100 04/19/21 03:58 103 H 33 H 135/96 100 04/19/21 03:52 98.8 F 04/19/21 03:28 102 H 22 131/94 04/19/21 02:58 101 H 129/88 100 04/19/21 01:59 103 H 20 116/94 100 04/19/21 01:57 102 H 36 H 100 04/19/21 00:58 107 H 134/87 98 04/19/21 00:28 99.0 F 04/19/21 00:09 106 H 24 98 04/18/21 23:59 107 H 113/62 99 04/18/21 22:58 114 H 130/95 96 04/18/21 22:42 111 H 04/18/21 21:58 112 H 142/95 H 98 Chest x-ray was a poor study with low lung volumes. Vital signs, labs and imaging personally reviewed Coding Level of Care Code 09956 Subseq Hosp Care Lvl 3 Diagnoses Admitted to intensive care unit Z78.9 Overdose T50.902A Encounter type: initial encounter Injury intent: intentional self-harm Suicide attempt T14.91XA Prolonged QT interval R94.31 Depression F32.9 Cystic fibrosis E84.9 (1) Overdose Encounter type: initial encounter Injury intent: intentional self-harm Qualified Code(s): T50.902A - Poisoning by unspecified drugs, medicaments and biological substances, intentional self-harm, initial encounter
--- NOTE | 2021-04-19 11:22 | Electrocardiogram Report ---
Test Reason : Blood Pressure : / mmHG Vent. Rate : 096 BPM Atrial Rate : 096 BPM P-R Int : 164 ms QRS Dur : 100 ms QT Int : 396 ms P-R-T Axes : 042 007 022 degrees QTc Int : 500 ms Normal sinus rhythm Incomplete right bundle branch block Nonspecific T wave abnormality Prolonged QT Abnormal ECG When compared with ECG of 18-APR-2021 01:39, Inverted T waves have replaced nonspecific T wave abnormality in Anterior leads Confirmed by Suleiman Orellana ([id number]) on 04/19/2021 11:22:16 AM Referred By: REFERRED SELF Confirmed By:Suleiman Orellana
[2021-04-19] MEDS ORDERED: MIRTAZAPINE TAB 15 MG TAB PO PRN (11:24)
--- NOTE | 2021-04-19 11:47 | Electrocardiogram Report ---
Test Reason : Blood Pressure : / mmHG Vent. Rate : 105 BPM Atrial Rate : 105 BPM P-R Int : 166 ms QRS Dur : 096 ms QT Int : 342 ms P-R-T Axes : 053 014 005 degrees QTc Int : 452 ms Sinus tachycardia Incomplete right bundle branch block T wave abnormality, consider anterolateral ischemia Abnormal ECG When compared with ECG of 18-APR-2021 10:24, (unconfirmed) T wave inversion more evident in Anterior leads QT has shortened Confirmed by Suleiman Orellana ([id number]) on 04/19/2021 11:47:12 AM Referred By: REFERRED SELF Confirmed By:Suleiman Orellana
--- NOTE | 2021-04-19 11:53 | Electrocardiogram Report ---
Test Reason : Blood Pressure : / mmHG Vent. Rate : 110 BPM Atrial Rate : 110 BPM P-R Int : 162 ms QRS Dur : 094 ms QT Int : 320 ms P-R-T Axes : 041 018 -05 degrees QTc Int : 433 ms Sinus tachycardia Incomplete right bundle branch block STY and T wave abnormality, consider anterior ischemia Abnormal ECG When compared with ECG of 18-APR-2021 16:32, (unconfirmed) No significant change was found Confirmed by Suleiman Orellana ([id number]) on 04/19/2021 11:52:37 AM Referred By: REFERRED SELF Confirmed By:Suleiman Orellana
--- NOTE | 2021-04-19 11:54 | Electrocardiogram Report ---
Test Reason : Blood Pressure : / mmHG Vent. Rate : 102 BPM Atrial Rate : 102 BPM P-R Int : 168 ms QRS Dur : 104 ms QT Int : 380 ms P-R-T Axes : 055 030 014 degrees QTc Int : 495 ms Sinus tachycardia Incomplete right bundle branch block T wave abnormality, consider anterior ischemia Abnormal ECG When compared with ECG of 18-APR-2021 21:35, (unconfirmed) QT has lengthened Confirmed by Suleiman Orellana ([id number]) on 04/19/2021 11:54:18 AM Referred By: REFERRED SELF Confirmed By:Suleiman Orellana
[2021-04-19] MEDS ORDERED: INSULIN GLARGINE SOLOSTAR 100 UNITS/ML 3 ML PEN SC ONE (12:00)
[2021-04-19] MEDS: lamoTRIgine 100 MG TAB PO SCH (12:21)
--- NOTE | 2021-04-19 13:43 | Hospitalist Progress Note ---
Date of Service April 19, 2021 Assessment & Plan (1) Overdose: Plan: Elio Arguelles is a 40yo male with PMHx significant for cystic fibrosis, T1DM, Schizoaffective Disorder Bipolar Type, Depression/Anxiety, and history of parasuicidal behavior who presents with intentional overdose of Quetiapine. He was admitted to ICU briefly for monitoring but is stable for transfer to floor today. Quetiapine toxicity Patient with reassuring gradual improvement in mental status although still significantly altered, QTc remains elevated at ~490ms. - continue frequent repeat EKG to monitor QTc prolongation - Psychiatry consulted - appreciate recs - hold home Quetiapine Schizoaffective Disorder, Bipolar Type; Depression/Anxiety; Parasuicidal behavior - held home Fluoxetine, Lamotrigine, [place], Lurasidone, Mirtazapine, given prolonged QTc - can re-start meds when QTc less than 480ms - Psychiatry consulted as stated above Cystic fibrosis - Continue home CF regimen - Continue percussion therapy - Contact precautions T1DM - CGM and pump turned off on admission - SSI + Lantus; appreciate glycemic consult FEN/GI: DM2 diet, Normosol @80cc/hr Code status: full code DVT ppx: held Isolation: contact Dispo: PCU with tele (2) Prolonged QT interval: (3) Hypoglycemia: Admission and Anticipated Discharge Date Admission Date: April 17, 2021 Supervising Physician Co-Signing Physician Notes I personally examined the patient and verified all pa points of history and exam, discussed case, and agree with decision making with Dr Kim Still mostly talking nonsensically. Does seem to ask vaguely if I can decipher what he is saying about what might happen next, or whether or not he can go home . Vitals noted, in general he is awake does not appear in physical distress, still with pressured speech and garbled speech, but a little bit easier to discern than yesterday. Breathing unlabored no accessory muscle use, rhonchi gonehe is getting a vibration vest treatment when I see him. Seroquel overdose, type 1 diabetes, cystic fibrosisappears to be slowly improving from the overdose, otherwise overall stable. Continue current care and follow. Stable for transfer out of ICU, appreciate ongoing psych follow-up. Otherwise as above Subjective No acute events overnight. Patient is oriented to self only and is not speaking clearly or coherently this morning. Difficult to obtain full HPI/ROS but he does deny pain. Review of Systems Review of Systems: Unobtainable due to mental health condition Physical Exam Physical Exam: General: A&O to self only. NAD. Cooperative. Psychomotor agitation present. HEENT: Atraumatic, normocephalic. Occasional lip-smacking. Pulm: Transmitted upper airway sounds bilaterally. -wheezes, -rales, -rhonchi. Symmetrical chest rise. No increase work of breathing. No respiratory distress. Cardiac: RRR, -mrg. Radial pulses intact and symmetrical. No LE edema. Abdominal: soft, non-tender, non-distended, BS x 4 Skin: warm, dry, no rash Results & Data Results & Data ([facility]) Vital Signs (Past 12 Hours) Vital Signs Temp Pulse Pulse Resp BP Pulse Ox 04/19/21 08:00 104 H 04/19/21 07:33 108 H 22 97 04/19/21 06:28 104 H 34 H 152/91 H 99 04/19/21 06:13 106 H 33 H 134/93 98 04/19/21 06:00 106 H 33 H 137/92 99 04/19/21 05:43 107 H 20 130/94 04/19/21 05:42 36.9 C 04/19/21 05:28 103 H 23 135/96 97 04/19/21 05:13 103 H 33 H 148/87 H 100 04/19/21 04:58 102 H 31 H 146/87 H 100 04/19/21 04:44 102 H 21 139/95 100 04/19/21 04:28 105 H 31 H 155/85 H 100 04/19/21 04:14 106 H 31 H 149/81 H 100 04/19/21 03:58 103 H 33 H 135/96 100 04/19/21 03:52 37.1 C 04/19/21 03:28 102 H 22 131/94 04/19/21 02:58 101 H 129/88 100 04/19/21 01:59 103 H 20 116/94 100 04/19/21 01:57 102 H 36 H 100 Resident Activity Tracking Resident Involvement: Resident Care Provided Care Provided: Adult Hospital Medicine (1) Overdose Encounter type: initial encounter Injury intent: intentional self-harm Qualified Code(s): T50.902A - Poisoning by unspecified drugs, medicaments and biological substances, intentional self-harm, initial encounter
--- NOTE | 2021-04-19 14:39 | Pharmacy Report ---
Pharmacy Glycemic Short Note 2 - Date of Service April 19, 2021 - Glycemic Short BSG Results (Last 24 hours): 04/18/21 04/18/21 04/18/21 14:46 16:14 19:28 Glucose POC Glucose 219 H 225 H 135 H 04/19/21 04/19/21 04/19/21 00:09 03:42 04:50 Glucose 170 H POC Glucose 219 H 153 H 04/19/21 04/19/21 07:46 11:36 Glucose POC Glucose 191 H 272 H OUTPATIENT ANTIDIABETIC REGIMEN: * A1c = 7.2 % * Per family member: Novolog Insulin pump * Basal: 0.7 units/hr (16.8 units/day) * CF 1:80, CR 1:25 ASSESSMENT: 04/19: * Elio received 24 units of insulin yesterday with fluctuating BSG control (12 units basal and 12 units bolus) * Fasting BSG of 191 mg/dL is above goal. I will increase basal insulin. * Post prandial hyperglycemia yesterday despite NPO status. Diet advanced today, therefore I will tighten Novolog CF. * Will advance doses conservatively given patients altered mental status, although improving, and insulin sensitivity. 04/18: * Elio is 40 yo T1DM male admitted s/p seroquel overdose * Patient is maintained on a novolog insulin pump at home. Pump was disconnected upon arrival. Patient was started on SQ basal + bolus insulin. * Will continue reduced dose of basal insulin for NPO status * Continue frequent monitoring (q4h) until patient is more stable and insulin needs are better known. PLAN FOR INPATIENT GLYCEMIC CONTROL: * Insulin pump on hold * Basal insulin * Lantus 14 units SQ this AM + additional 2 units at lunch * Bolus insulin * NovoLog per scale ACHS or Q6hrs while NPO * Goal Range: Low 110 mg/dL - High 140 mg/dL * Tighten Correction Factor: 30 mg/dL/unit * Nutritional / Prandial insulin per carb ratio of 1 unit per 20 grams CHO consumed PLAN FOR DISCHARGE: * A1c = 7.2%. * Continue home insulin pump on discharge assuming mental status has returned to baseline. Follow up with outpatient provider for dose adjustments as needed.
--- NOTE | 2021-04-19 15:33 | Psychiatric Consultation ---
Date of Consultation April 19, 2021 Impression / Recommendations Impression 40-year-old male who has a medical history significant for cystic fibrosis presenting following a suicide attempt in which patient ingested a large quantity of Seroquel medication. Patient has a history of doing such and was recently admitted approximately 1-1/2 years ago on 3 S. unit for sepsis this. Patient now denying any further suicidal ideation and explaining that his attempt was impulsive in nature. Recommendations: Agree with holding of Seroquel, latest EKG shows a QTC of 490, will be safe to restart second-generation antipsychotics when QTC is below 480 Patient is not free to leave AMA at this time. Psychiatry team will continue to gather collateral information Psychiatry team to continue to follow and reassess patient when his mentation is more clear Psych History Chief Complaint "I am fine". History of Present Illness Patient is a 40-year-old male who presented following a overdose of his Seroquel medication. Patient has a history of doing such and was admitted to 3 S. approximately a year and a half ago for a prior overdose of Seroquel. Upon evaluation today, patient is still somewhat delirious speaking rapidly and quick to state that his mood is fine. He denies need for any further psychiatric treatment and states that he could do any necessary treatment on an outpatient basis. The decision was made to wait until patient is feeling better to further discuss his psychiatric care which patient is agreeable to. Past Psychiatric History Previous Psych History: Patient has a history of schizoaffective disorder. Was on 3 S. unit approximately and a half ago for a Seroquel overdose. Outpatient Services: Patient does have outpatient providers in the community. Allergies Allergy/AdvReac Type Severity Reaction Status Date / Time No Known Allergies Allergy Verified 04/09/21 07:09 Home Medications Medication Instructions Recorded Confirmed Type cholecalciferol (vitamin D3) 125 5,000 units PO DAILY cap 08/13/19 04/18/21 History mcg (5,000 unit) capsule multivitamin 1 tab PO DAILY 08/13/19 04/18/21 History famotidine 20 mg tablet 20 mg PO DAILY 08/23/19 04/18/21 History lithium carbonate 300 mg 300 mg PO QAM 08/23/19 04/18/21 History tablet,extended release (Lithobid) lurasidone 80 mg tablet (Latuda) 160 mg PO HS 08/23/19 04/18/21 History varenicline 1 mg tablet (Chantix) 1 mg PO DAILY 08/23/19 04/18/21 History colistin (colistimethate Na) 150 75 mg INHALATION BID 10/23/19 04/18/21 History mg solution for injection [id number] 20,000 cap PO UD 10/23/19 04/18/21 History 20,000-63,000-84,000 unit capsule, delayed rel (Zenpep) fenofibrate nanocrystallized 145 145 mg PO DAILY #90 tab 09/29/20 04/18/21 Rx mg tablet levothyroxine 75 mcg tablet 75 mcg PO DAILY #90 tab 11/07/20 04/18/21 Rx aztreonam lysine 75 mg/mL solution 75 mg INHALATION TID 11/26/20 04/18/21 History for nebulization ([place]) elexacaftor 100 mg-tezacaf 3 ea PO DAILY ea 11/26/20 04/18/21 History 50mg-ivacaf 75mg(d)/ivacaf 150mg(n) tablets (Trikafta) ipratropium 0.5 mg-albuterol 3 mg 3 ml INHALATION BID ml 11/26/20 04/18/21 History (2.5 mg base)/3 mL nebulization soln lamotrigine 150 mg tablet 150 mg PO BID 11/26/20 04/18/21 History linaclotide 72 mcg capsule 72 mcg PO DAILY 11/26/20 04/18/21 History (Linzess) lithium carbonate 450 mg 450 mg PO HS tab 11/26/20 04/18/21 History tablet,extended release mirtazapine 15 mg tablet 15 mg PO HS PRN 11/26/20 04/18/21 History quetiapine 200 mg tablet (Seroquel) 200 mg PO HS 11/26/20 04/18/21 History sodium chloride 3 % for 4 ml INHALATION Q8H 11/26/20 04/18/21 History nebulization Novolog U-100 Insulin aspart 100 See Rx Instructions SQ DAILY 90 12/17/20 04/18/21 Rx unit/mL subcutaneous solution Days #9 vial NS (insulin aspart U-100) fluoxetine 20 mg capsule 20 mg PO QAM 04/18/21 04/18/21 History Personal History Beliefs That Will Affect Care: None Patient History Medical History Anemia Anticholinergic syndrome Anxiety Bipolar disorder Cystic fibrosis Depression Discharge planning issues Drug overdose DVT prophylaxis Encephalopathy History of gastrostomy tube placement Hypertriglyceridemia Hypothyroidism Prolonged QT interval Schizoaffective disorder Small bowel obstruction Suicide attempt Uncontrolled type 1 diabetes mellitus, with long-term current use of insulin Ventral hernia Surgical History History of cholecystectomy History of Hollie fundoplication No pertinent past surgical history Family History Mother Bipolar disorder Anxiety Hard of hearing Depression Cancer Hypertension Breast cancer Father Diabetes Hypertension Hard of hearing Lung cancer Brother Depression Grandfather Myocardial infarction Other No significant family history Denies family history of Ovarian cancer Prostate cancer Colorectal cancer Social History Smoking Status: Unknown if ever smoked Tobacco Type: Cigarettes Age Started Using Tobacco: 15; Age Quit Using Tobacco: 34; packs per day: 1; Second Hand Exposure: No; Preferred Language: Irish Communication Ability: Effective Visual Impairment: Limited Hearing Ability: Normal Mat Machine Tender Required: No Beliefs That Will Affect Care: None marital status: Current Living Situation: Spouse current occupational status: employed current occupation: [employer] Other Information That Helps Us Care for You: No Feels Safe at Home: Yes Assistive Devices: None Physical Exam Psychiatric: Orientation: alert, oriented to person and oriented to place Apperance: + disheveled Eye Contact: + fair eye contact Restlessness Speech: + pressured speech Affect: + labile affect Mood: no depressed mood Thought Process: + concrete thought process Thought Content: reality based without delusions Recent suicide attempt, denies current suicidal thoughts Homicidal Thoughts: denies homicidal thoughts Insight: + poor insight Judgement: + poor judgement Vital Signs (Past 24 Hours): Last Vital Signs Temp 36.9 C 04/19/21 05:42 Pulse 104 H 04/19/21 08:00 Resp 22 04/19/21 07:33 BP 152/91 H 04/19/21 06:28 Pulse Ox 97 04/19/21 07:33 Review of Systems All systems reviewed & are unremarkable except as noted in HPI & below Results & Data (PSY) Medications Administered Colistimethate Sodium (Colistin (Colistimethate Na) 150 Mg Vial) 75 mg INH BIDR JAVIER Stop: 05/18/21 07:59 Last Admin: 04/19/21 07:27 Dose: 75 mg Documented by: [id number] Admin: 04/18/21 19:45 Dose: 75 mg Documented by: [id number] Dornase Pramod (Dornase Pramod 2.5 Ml Amp) 2.5 ml INH BIDR JAVIER Stop: 05/18/21 18:59 Last Admin: 04/19/21 07:25 Dose: 2.5 ml Documented by: [id number] Admin: 04/18/21 19:20 Dose: 2.5 ml Documented by: [id number] Parenteral Electrolytes (Normosol-R) 1,000 mls @ 80 mls/hr IV .[id number] [facility] Stop: 05/18/21 04:59 Last Admin: 04/19/21 14:20 Dose: 80 mls/hr Documented by: [id number] Infusion: 04/19/21 14:20 Dose: 80 mls/hr Documented by: [id number] Admin: 04/19/21 03:27 Dose: 80 mls/hr Documented by: [id number] Infusion: 04/19/21 03:27 Dose: 80 mls/hr Documented by: [id number] Admin: 04/18/21 16:17 Dose: 80 mls/hr Documented by: [id number] Infusion: 04/18/21 16:17 Dose: 80 mls/hr Documented by: [id number] Admin: 04/18/21 05:24 Dose: 80 mls/hr Documented by: [id number] Insulin Aspart (Insulin Aspart 100 Units/Ml 3 Ml Pen) 0 units SC Q4 [facility] Stop: 05/18/21 05:29 Last Admin: 04/19/21 12:00 Dose: 6 units Documented by: [id number] Cosigned by: [id number] Admin: 04/19/21 07:51 Dose: 2 units Documented by: [id number] Cosigned by: [id number] Admin: 04/19/21 03:47 Dose: 1 units Documented by: [id number] Cosigned by: [id number] Admin: 04/19/21 00:12 Dose: 3 units Documented by: [id number] Cosigned by: [id number] Admin: 04/18/21 20:01 Dose: Not Given Documented by: [id number] Admin: 04/18/21 16:16 Dose: 3 units Documented by: [id number] Cosigned by: [id number] Admin: 04/18/21 12:15 Dose: 2 units Documented by: [id number] Cosigned by: [id number] Admin: 04/18/21 09:05 Dose: 1 units Documented by: [id number] Cosigned by: [id number] Admin: 04/18/21 05:42 Dose: 1 units Documented by: [id number] Cosigned by: [id number] Insulin Glargine (Insulin Glargine Solostar 100 Units/Ml 3 Ml Pen) 14 units SC QAM [facility]; Protocol Stop: 05/19/21 08:59 Last Admin: 04/19/21 10:16 Dose: 14 units Documented by: [id number] Cosigned by: [id number] Lamotrigine (Lamotrigine 100 Mg Tab) 150 mg PO BID [facility] Stop: 05/19/21 11:59 Last Admin: 04/19/21 12:21 Dose: 150 mg Documented by: [id number] Levalbuterol HCl (Levalbuterol Hcl 0.63 Mg/3 Ml Neb) 0.63 mg NEB Q6R [facility] Stop: 05/18/21 12:59 Last Admin: 04/19/21 13:56 Dose: 0.63 mg Documented by: [id number] Admin: 04/19/21 07:25 Dose: 0.63 mg Documented by: [id number] Admin: 04/19/21 00:08 Dose: 0.63 mg Documented by: [id number] Admin: 04/18/21 18:52 Dose: 0.63 mg Documented by: [id number] Admin: 04/18/21 12:33 Dose: 0.63 mg Documented by: [id number] *Zenpep*Non- Formulary Patient's Own Med 0 ea PO TIDM JAVIER Stop: 05/18/21 07:59 Last Admin: 04/19/21 12:23 Dose: Not Given Documented by: [id number] Admin: 04/19/21 07:50 Dose: Not Given Documented by: [id number] Admin: 04/18/21 16:16 Dose: Not Given Documented by: [id number] Admin: 04/18/21 12:15 Dose: Not Given Documented by: [id number] Admin: 04/18/21 08:57 Dose: Not Given Documented by: [id number] *Soco*Non- Formulary Patient's Own Med 2 ea PO QAM [facility] Stop: 05/18/21 08:59 Last Admin: 04/19/21 07:50 Dose: Not Given Documented by: [id number] Admin: 04/18/21 08:59 Dose: Not Given Documented by: [id number] *Soco*Non- Formulary Patient's Own Med 1 ea PO QDD [facility] Stop: 05/18/21 16:29 Last Admin: 04/18/21 16:16 Dose: Not Given Documented by: [id number] Sodium Chloride (Sodium Chlor 7% 4 Ml Neb) 4 ml NEB BIDR [facility] Stop: 05/18/21 18:59 Last Admin: 04/19/21 07:25 Dose: 4 ml Documented by: [id number] Admin: 04/18/21 19:08 Dose: 4 ml Documented by: [id number] Coding Level of Care Code 56343 [facility] Intl Hosp Care Lvl 2
--- NOTE | 2021-04-19 18:42 | Billing Data ---
Date of Service April 19, 2021 Coding Level of Care Code 59361 Subseq Hosp Care Lvl 2
[2021-04-19] MEDS ORDERED: [UNRECOGNIZED DRUG - OTHER] INH SCH (21:00)
[2021-04-19] MEDS ORDERED: COLISTIN INH SCH (21:00)
[2021-04-20] MEDS: LEVALBUTEROL HCL 0.63 MG/3 ML NEB NEB SCH ×4 (00:46→20:02)
[2021-04-20] MEDS: NORMOSOL-R 1,000 ML IV SCH (01:12)
[2021-04-20] MEDS: INSULIN ASPART 100 UNITS/ML 3 ML PEN SC SCH ×6 (03:45→23:52)
[2021-04-20] MEDS: SODIUM CHLOR 7% 4 ML NEB NEB SCH ×2 (07:16→20:03)
[2021-04-20] MEDS: DORNASE ALFA 2.5 ML AMP INH SCH ×2 (07:16→20:02)
[2021-04-20] MEDS: COLISTIN INH SCH ×2 (07:16→20:08)
[2021-04-20 07:41] LABS: Basophils # (auto) 0.01 K/uL (0-0.2); Basophils % (auto) 0.1 %; Eosinophils # (auto) 0.03 K/uL (0-0.5); Eosinophils % (auto) 0.3 %; Hematocrit (blood only) 30.9 % (42-52); Hemoglobin 9.9 g/dL (14.0-18.0); Immature Granulocytes # (auto) 0.03 K/uL (0.00-0.02); Immature Granulocytes % (auto) 0.3 %; Lymphocytes # (auto) 0.91 K/uL (1.2-3.4); Lymphocytes % (auto) 9.7 %; Mean Corpuscular Hemoglobin 30.1 pg (25-34); Mean Corpuscular Volume 93.9 fL (80-100); Monocytes # (auto) 0.82 K/uL (0.11-0.59); Monocytes % (auto) 8.7 %; Neutrophils % (auto) 80.9 %; Platelet Count 268 K/uL (130-400); RDW Standard Deviation 48.4 fL (36.4-46.3); Red Blood Count 3.29 M/uL (4.7-6.1)
--- NOTE | 2021-04-20 08:13 | Electrocardiogram Report ---
Test Reason : Blood Pressure : / mmHG Vent. Rate : 099 BPM Atrial Rate : 099 BPM P-R Int : 162 ms QRS Dur : 102 ms QT Int : 382 ms P-R-T Axes : 036 022 013 degrees QTc Int : 490 ms Normal sinus rhythm Incomplete right bundle branch block Diffuse Nonspecific T wave abnormality Prolonged QT Abnormal ECG When compared with ECG of 19-APR-2021 03:44, No significant change was found Confirmed by Juan Pleitez ([id number]) on 04/20/2021 8:13:12 AM Referred By: REFERRED SELF Confirmed By:Juan Pleitez
[2021-04-20 08:20] LABS: Calcium 8.8 mg/dl (8.5-10.1); Creatinine Clr Calc Pharmacy 138.3 ml/min; Est GFR (African American) 128.6 ml/min
[2021-04-20 08:22] LABS: Phosphorus 2.6 mg/dl (2.5-4.9)
--- NOTE | 2021-04-20 08:39 | Electrocardiogram Report ---
Test Reason : Blood Pressure : / mmHG Vent. Rate : 092 BPM Atrial Rate : 092 BPM P-R Int : 174 ms QRS Dur : 102 ms QT Int : 378 ms P-R-T Axes : 046 008 013 degrees QTc Int : 467 ms Normal sinus rhythm Incomplete right bundle branch block Nonspecific T wave abnormality Prolonged QT Abnormal ECG When compared with ECG of 18-APR-2021 01:39, No significant change was found Confirmed by Juan Pleitez ([id number]) on 04/20/2021 8:38:53 AM Referred By: REFERRED SELF Confirmed By:Juan Pleitez
[2021-04-20] MEDS: ZENPEP PO SCH ×3 (08:46→17:11)
[2021-04-20] MEDS: INSULIN GLARGINE SOLOSTAR 100 UNITS/ML 3 ML PEN SC SCH (08:47)
[2021-04-20] MEDS: VARENICLINE 1 MG TAB PO SCH (08:48)
[2021-04-20] MEDS: linaCLOtide 72 MCG CAPSULE PO SCH (08:49)
[2021-04-20] MEDS: CHOLECALCIFEROL 1,000 UNITS 25 MCG TAB PO SCH (08:49)
[2021-04-20] MEDS: FAMOTIDINE 20 MG TAB PO SCH (08:49)
[2021-04-20] MEDS: FENOFIBRATE NANOCRYSTALLIZED 145 MG TABLET PO SCH (08:49)
[2021-04-20] MEDS: MULTIVITAMIN TAB PO SCH (08:49)
--- NOTE | 2021-04-20 08:56 | Electrocardiogram Report ---
Test Reason : Blood Pressure : / mmHG Vent. Rate : 099 BPM Atrial Rate : 099 BPM P-R Int : 158 ms QRS Dur : 102 ms QT Int : 354 ms P-R-T Axes : 039 023 030 degrees QTc Int : 454 ms Normal sinus rhythm Incomplete right bundle branch block Diffuse Minor Nonspecific T wave abnormality Abnormal ECG When compared with ECG of 19-APR-2021 09:48, No significant change was found Confirmed by Juan Pleitez ([id number]) on 04/20/2021 8:56:19 AM Referred By: REFERRED SELF Confirmed By:Juan Pleitez
[2021-04-20] MEDS ORDERED: INSULIN GLARGINE SOLOSTAR 100 UNITS/ML 3 ML PEN SC SCH (09:00)
--- NOTE | 2021-04-20 09:37 | Electrocardiogram Report ---
Test Reason : Blood Pressure : / mmHG Vent. Rate : 105 BPM Atrial Rate : 105 BPM P-R Int : 152 ms QRS Dur : 102 ms QT Int : 372 ms P-R-T Axes : 056 045 042 degrees QTc Int : 491 ms Poor data quality, interpretation may be adversely affected Sinus tachycardia Incomplete right bundle branch block Diffuse Minor Nonspecific T wave abnormality Abnormal ECG When compared with ECG of 19-APR-2021 16:17, No significant change was found Confirmed by Juan Pleitez ([id number]) on 04/20/2021 9:37:06 AM Referred By: REFERRED SELF Confirmed By:Juan Pleitez
[2021-04-20] MEDS: LITHIUM CARBONATE SLOW REL 300 MG TAB PO SCH (10:40)
[2021-04-20] MEDS: lamoTRIgine 100 MG TAB PO SCH ×2 (10:40→21:32)
--- NOTE | 2021-04-20 10:53 | Hospitalist Progress Note ---
Date of Service April 20, 2021 Assessment & Plan (1) Overdose: Plan: Elio Arguelles is a 40yo male with PMHx significant for cystic fibrosis, T1DM, Schizoaffective Disorder Bipolar Type, Depression/Anxiety, and history of parasuicidal behavior who presents with intentional overdose of Quetiapine. He was admitted to ICU briefly for monitoring and was transferred to the floor on 04/19 - improving. Quetiapine toxicity Patient with reassuring improvement in mental status, QTc remains elevated at ~490ms. - continue serial repeat EKGs to monitor QTc prolongation - Psychiatry consulted - appreciate recs - patient not permitted to leave AMA at this time - psych will continue to evaluate and assist with proper disposition plan - hold home Quetiapine Schizoaffective Disorder, Bipolar Type; Depression/Anxiety; Parasuicidal behav ior - re-started home Fluoxetine, Lamotrigine, [place], Lurasidone, Mirtazapine this morning - Psychiatry consulted as stated above Cystic fibrosis - Continue home CF regimen - Continue percussion therapy - Contact precautions T1DM - CGM and pump turned off on admission - SSI + Lantus; appreciate glycemic consult FEN/GI: DM2 diet, stopped IVFs as patient has adequate PO intake Code status: full code DVT ppx: held - low risk Isolation: contact Dispo: PCU with tele, psych will continue to evaluate and assist with proper disposition plan (2) Prolonged QT interval: (3) Hypoglycemia: Admission and Anticipated Discharge Date Admission Date: April 17, 2021 Supervising Physician Co-Signing Physician Notes Resident Physician Supervision Note: I independently interviewed and examined the patient and verified the pa history and physical, reviewed labs and image studies and agree with resident Dr. Kim findings and care plan. Subjective No acute events overnight. No PRNs needed. Patient mentation has improved - he is now A+O x4 and is speaking slower and more logically/coherently. Of note he does mention occasional visual hallucinations (sees shadows/people in the room). Reports sleeping well overnight and denies pain. Denies fever/chills, chest pain/palpitations, SOB, N/V, abdominal pain. Review of Systems Review of Systems: All systems reviewed & are unremarkable except as noted in Subjective Physical Exam Physical Exam: General: A&O x4. NAD. Cooperative. Calm (improved from yesterday) HEENT: Atraumatic, normocephalic. Pulm: Transmitted upper airway sounds bilaterally. -wheezes, -rales, -rhonchi. Symmetrical chest rise. No increase work of breathing. No respiratory distress. Cardiac: RRR, -mrg. Radial pulses intact and symmetrical. No LE edema. Abdominal: soft, non-tender, non-distended, BS x 4 Skin: warm, dry, no rash Results & Data Results & Data ([facility]) Vital Signs (Past 12 Hours) Vital Signs Temp Pulse Pulse Resp BP Pulse Ox 04/20/21 08:09 84 20 97 04/20/21 08:00 102 H 04/20/21 07:18 84 20 97 04/20/21 07:04 117/68 04/20/21 07:02 37.2 C 104 H 20 97 04/20/21 03:20 37.2 C 113 H 20 137/80 93 04/20/21 00:46 115 H 28 H 97 04/20/21 00:00 116 H Resident Activity Tracking Resident Involvement: Resident Care Provided Care Provided: Adult Hospital Medicine (1) Overdose Encounter type: initial encounter Injury intent: intentional self-harm Qualified Code(s): T50.902A - Poisoning by unspecified drugs, medicaments and biological substances, intentional self-harm, initial encounter
[2021-04-20] MEDS: TRIKAFTA PO SCH ×2 (10:59→17:14)
--- NOTE | 2021-04-20 11:05 | Pharmacy Report ---
Pharmacy Glycemic Short Note 2 - Date of Service April 20, 2021 - Glycemic Short BSG Results (Last 24 hours): 04/19/21 04/19/21 04/19/21 11:36 16:35 19:49 Glucose POC Glucose 272 H 134 H 196 H 04/19/21 04/19/21 04/19/21 23:20 23:21 23:27 Glucose POC Glucose 304 H* 265 H 267 H 04/20/21 04/20/21 04/20/21 03:43 07:26 07:42 Glucose 134 H POC Glucose 96 143 H OUTPATIENT ANTIDIABETIC REGIMEN: * A1c = 7.2 % * Per family member: Novolog Insulin pump * Basal: 0.7 units/hr (16.8 units/day) * CF 1:80, CR 1:25 ASSESSMENT: 04/20: * Patient received total of 33 units of insulin yesterday, of which 16 units were basal insulin (similar to home pump basal 0.7 units/hr ~16 units/day) * Fasting BSG 134 mg/dL - plan to continue home basal * PO intake minimal yesterday, continues on diet today - will loosen CF now that more basal insulin on board 04/19: * Elio received 24 units of insulin yesterday with fluctuating BSG control (12 units basal and 12 units bolus) * Fasting BSG of 191 mg/dL is above goal. I will increase basal insulin. * Post prandial hyperglycemia yesterday despite NPO status. Diet advanced today, therefore I will tighten Novolog CF. * Will advance doses conservatively given patients altered mental status, although improving, and insulin sensitivity. 04/18: * Elio is 40 yo T1DM male admitted s/p seroquel overdose * Patient is maintained on a novolog insulin pump at home. Pump was disconnected upon arrival. Patient was started on SQ basal + bolus insulin. * Will continue reduced dose of basal insulin for NPO status * Continue frequent monitoring (q4h) until patient is more stable and insulin needs are better known. PLAN FOR INPATIENT GLYCEMIC CONTROL: * Insulin pump on hold * Basal insulin * Lantus 16 units daily * Bolus insulin * NovoLog per scale ACHS or Q6hrs while NPO * Goal Range: Low 110 mg/dL - High 140 mg/dL * Tighten Correction Factor: 40 mg/dL/unit * Nutritional / Prandial insulin per carb ratio of 1 unit per 20 grams CHO consumed PLAN FOR DISCHARGE: * A1c = 7.2%. * Continue home insulin pump on discharge assuming mental status has returned to baseline. Follow up with outpatient provider for dose adjustments as needed.
[2021-04-20 11:37] LABS: iSTAT Potassium 3.5 mmol/L (3.3-5.0); iSTAT Sodium 144 mmol/L (135-144)
[2021-04-20 11:38] LABS: iSTAT Hemoglobin 10.5 g/dl (14.0-18.0)
[2021-04-20 11:39] LABS: iSTAT Arterial Blood Gas HCO3 23 meg/L (19-24); iSTAT Arterial Blood Gas pCO2 44 mmHg (35-46); iSTAT Arterial Blood Gas pH 7.32 (7.35-7.45); iSTAT Arterial Blood Gas pO2 88 mmHg (80-95); iSTAT Carbon Dioxide 24 mmol/L (24-31); iSTAT Hematocrit 31 % (42-52)
[2021-04-20] MEDS: FLUoxetine HCL 20 MG CAP PO SCH (12:26)
[2021-04-20] MEDS ORDERED: COUGH DROP (SUGAR FREE) LOZ 24 LOZ/1 BOX BUCCAL STA (18:14)
[2021-04-20] MEDS: LITHIUM CARBONATE 450 MG TABCR PO SCH (21:31)
[2021-04-20] MEDS: LURASIDONE HCL 40 MG TAB PO SCH (21:32)
[2021-04-21] MEDS: LEVALBUTEROL HCL 0.63 MG/3 ML NEB NEB SCH ×4 (00:46→19:08)
[2021-04-21] MEDS: COLISTIN INH SCH ×2 (07:10→20:12)
[2021-04-21] MEDS: DORNASE ALFA 2.5 ML AMP INH SCH ×2 (07:10→19:09)
[2021-04-21] MEDS: SODIUM CHLOR 7% 4 ML NEB NEB SCH ×2 (07:10→19:09)
[2021-04-21] MEDS: INSULIN ASPART 100 UNITS/ML 3 ML PEN SC SCH ×4 (08:11→21:29)
[2021-04-21] MEDS: ZENPEP PO SCH ×3 (08:13→16:44)
[2021-04-21] MEDS: TRIKAFTA PO SCH ×2 (08:14→16:45)
[2021-04-21] MEDS: INSULIN GLARGINE SOLOSTAR 100 UNITS/ML 3 ML PEN SC SCH (08:15)
[2021-04-21] MEDS: FENOFIBRATE NANOCRYSTALLIZED 145 MG TABLET PO SCH (08:16)
[2021-04-21] MEDS: LITHIUM CARBONATE SLOW REL 300 MG TAB PO SCH (08:16)
[2021-04-21] MEDS: linaCLOtide 72 MCG CAPSULE PO SCH (08:16)
[2021-04-21] MEDS: FAMOTIDINE 20 MG TAB PO SCH (08:16)
[2021-04-21 08:47] LABS: Basophils # (auto) 0.02 K/uL (0-0.2); Basophils % (auto) 0.3 %; Eosinophils # (auto) 0.14 K/uL (0-0.5); Hematocrit (blood only) 33.4 % (42-52); Hemoglobin 10.8 g/dL (14.0-18.0); Immature Granulocytes # (auto) 0.01 K/uL (0.00-0.02); Immature Granulocytes % (auto) 0.1 %; Lymphocytes # (auto) 0.98 K/uL (1.2-3.4); Lymphocytes % (auto) 13.7 %; Mean Corpuscular Hemoglobin 30.6 pg (25-34); Mean Corpuscular Hgb Conc 32.3 g/dL (32-36); Mean Corpuscular Volume 94.6 fL (80-100); Mean Platelet Volume 10.4 fL (7.4-10.4); Monocytes # (auto) 0.53 K/uL (0.11-0.59); Monocytes % (auto) 7.4 %; Neutrophils # (auto) 5.45 K/uL (1.4-6.5); Neutrophils % (auto) 76.5 %; Platelet Count 312 K/uL (130-400); RDW Standard Deviation 48.4 fL (36.4-46.3); Red Blood Count 3.53 M/uL (4.7-6.1); White Blood Count 7.13 K/uL (4.8-10.8)
--- NOTE | 2021-04-21 08:50 | Electrocardiogram Report ---
Test Reason : Blood Pressure : / mmHG Vent. Rate : 094 BPM Atrial Rate : 094 BPM P-R Int : 146 ms QRS Dur : 098 ms QT Int : 362 ms P-R-T Axes : 057 042 051 degrees QTc Int : 452 ms Normal sinus rhythm Incomplete right bundle branch block Diffuse Minor Nonspecific T wave abnormality Abnormal ECG When compared with ECG of 20-APR-2021 07:55, No significant change was found Confirmed by Juan Pleitez ([id number]) on 04/21/2021 8:49:38 AM Referred By: REFERRED SELF Confirmed By:Juan Pleitez
[2021-04-21] MEDS: lamoTRIgine 100 MG TAB PO SCH ×2 (09:00→21:21)
[2021-04-21] MEDS: VARENICLINE 1 MG TAB PO SCH (09:00)
[2021-04-21] MEDS: FLUoxetine HCL 20 MG CAP PO SCH (09:00)
[2021-04-21] MEDS: MULTIVITAMIN TAB PO SCH (09:00)
[2021-04-21 09:20] LABS: BUN Creatinine Ratio 13.1 (10-20); Calcium 9.5 mg/dl (8.5-10.1); Est GFR (African American) 122.5 ml/min; Est GFR (Non-African American) 105.7 ml/min; Potassium 4.4 mmol/L (3.5-5.1)
[2021-04-21] MEDS: CHOLECALCIFEROL 1,000 UNITS 25 MCG TAB PO SCH (11:00)
--- NOTE | 2021-04-21 11:29 | Hospitalist Progress Note ---
Date of Service April 21, 2021 Assessment & Plan (1) Overdose: Plan: Elio Arguelles is a 40yo male with PMHx significant for cystic fibrosis, T1DM, Schizoaffective Disorder Bipolar Type, Depression/Anxiety, and history of parasuicidal behavior who presents with intentional overdose of Quetiapine. He was admitted to ICU briefly for monitoring and was transferred to the floor on 04/19 - patient is medically stable for transfer to inpatient psychiatry floor at this time. Toxic encephalopathy due to seroquel overdose, resolved Patient with reassuring improvement in mental status, QTc improved to ~450ms. - Psychiatry consulted - appreciate recs - recommends inpatient psychiatric hospitalization; patient is medically stable for transfer at this time - tentative plan for transfer tomorrow Schizoaffective Disorder, Bipolar Type; Depression/Anxiety; Parasuicidal behavior - re-started home Fluoxetine, Lamotrigine, [place], Lurasidone, Mirtazapine, Quetiapine - Psychiatry consulted as stated above Cystic fibrosis - Continue home CF regimen - Continue percussion therapy - Contact precautions T1DM - CGM and pump turned off on admission - SSI + Lantus; appreciate glycemic consult FEN/GI: DM2 diet, stopped IVFs as patient has adequate PO intake Code status: full code DVT ppx: held - low risk Isolation: contact Dispo: PCU with tele, medically stable for transfer to inpatient psychiatry - tentatively tomorrow (2) Prolonged QT interval: (3) Hypoglycemia: Admission and Anticipated Discharge Date Admission Date: April 17, 2021 Supervising Physician Co-Signing Physician Notes Resident Physician Supervision Note: I independently interviewed and examined the patient and verified the pa history and physical, reviewed labs and image studies and agree with resident Dr. Kim findings and care plan. Subjective No acute events overnight. Patient is more coherent today and appears to be at relative baseline. He denies auditory/visual hallucinations this morning and denies SI/HI. He reports that he was very upset after arguing with his , which prompted him to take the Quetiapine pills to show his he's "serious" and because he wanted to "fall asleep and not wake up". However he reports he is happy he was unsuccessful. Denies fever/chills, chest pain, palpitations, SOB, tremors, N/V, abdominal pain, rash. Review of Systems Review of Systems: All systems reviewed & are unremarkable except as noted in Subjective Physical Exam Physical Exam: General: A&O x4. NAD. Cooperative. Calm. HEENT: Atraumatic, normocephalic. Pulm: Transmitted upper airway sounds bilaterally. -wheezes, -rales, -rhonchi. Symmetrical chest rise. No increase work of breathing. No respiratory distress. Cardiac: RRR, -mrg. Radial pulses intact and symmetrical. No LE edema. Abdominal: soft, non-tender, non-distended, BS x 4 Skin: warm, dry, no rash Neuro: slight bilateral hand tremor Results & Data Results & Data ([facility]) Vital Signs (Past 12 Hours) Vital Signs Temp Pulse Pulse Pulse Resp BP Pulse Ox 04/21/21 11:15 37.0 C 95 H 18 124/84 97 04/21/21 07:49 104 H 04/21/21 07:12 81 20 97 04/21/21 07:10 36.9 C 102 H 18 135/84 97 04/21/21 01:00 37.5 C 102 H 102 H 20 140/91 97 04/21/21 00:50 98 H 22 98 04/21/21 00:00 105 H Resident Activity Tracking Resident Involvement: Resident Care Provided Care Provided: Adult Hospital Medicine (1) Overdose Encounter type: initial encounter Injury intent: intentional self-harm Qualified Code(s): T50.902A - Poisoning by unspecified drugs, medicaments and biological substances, intentional self-harm, initial encounter
[2021-04-21] MEDS ORDERED: QUEtiapine FUMARATE 200 MG TAB PO SCH (21:00)
[2021-04-21] MEDS: LITHIUM CARBONATE 450 MG TABCR PO SCH (21:21)
[2021-04-21] MEDS: LURASIDONE HCL 40 MG TAB PO SCH (21:21)
[2021-04-22] MEDS: LEVALBUTEROL HCL 0.63 MG/3 ML NEB NEB SCH ×2 (00:39→06:56)
[2021-04-22] MEDS: INSULIN ASPART 100 UNITS/ML 3 ML PEN SC SCH ×2 (01:03→08:47)
--- NOTE | 2021-04-22 06:44 | Discharge Summary ---
Date of Service April 22, 2021 Admission HPI Per Admitting Provider Elio Arguelles is a 40 year old male here with his after an intentional overdose with Seroquel. He has a past medical history significant for cystic fibrosis and type 1 diabetes. He was not able to answer questions due to sedation, but his was there and able to answer questions. He had an argument with his earlier today and at 7:55 PM swallowed a handful of Seroquel. He adds his medications to prior bottles, so she is unclear exactly how many pills he took but she thought maybe 20-30. Dai brought up that he has been cross tapering his antidepressant medications from Paxil to Prozac. His explained that he has been doing well from a pulmonary standpoint with no recent illness. Prior admission in September of 2019 for intentional overdose with Seroquel, admitted to the ICU at that time and did not require intubation. ER course: poison control was called with the recommendation to give Mg. (1gm given) for his prolonged QTC ABG obtained Admission Exam Per Admitting Provider Constitutional: + lethargic Eyes: reactive pupils (sluggish) and + abnormal pupil size (3mm) ENMT: external ear and nose normal, oropharynx normal Neck: normal visual inspection Respiratory: - symmetric chest rise - snoring upper airway sounds - no wheezing, rhonchi or rales appreciate - slightly belly breathing Cardiovascular: Rate/Rhythm: regular rate Gastrointestinal (Abdomen): - soft, distended - nTTP - midline scar from prior Hollie and left sided scar from prior G-tube placement Neurologic: + not awake Comatose Patient: + response to noxious stimuli absent Psychiatric: Orientation: + not alert and + not oriented x 3 Principal Diagnosis Toxic Encephalopathy due to Seroquel Overdose Discharge Exam General: A&O x4. NAD. Cooperative. Calm. HEENT: Atraumatic, normocephalic. Pulm: Transmitted upper airway sounds bilaterally. -wheezes, -rales, -rhonchi. Symmetrical chest rise. No increase work of breathing. No respiratory distress. Cardiac: RRR, -mrg. Radial pulses intact and symmetrical. No LE edema. Abdominal: soft, non-tender, non-distended, BS x 4 Skin: warm, dry, no rash Discharge Data Allergies Allergy/AdvReac Type Severity Reaction Status Date / Time No Known Allergies Allergy Verified 04/09/21 07:09 Consultations 04/17/21 22:44 ED Decision to Admit Stat 04/18/21 01:52 Consult Roller Inspector Routine 04/18/21 09:39 Consult Psychiatry Routine Hospital Course (1) Overdose: Elio Arguelles is a 40yo male with PMHx significant for cystic fibrosis, T1DM, Schizoaffective Disorder Bipolar Type, Depression/Anxiety, and history of parasuicidal behavior who presents with intentional overdose of Quetiapine. He was admitted to ICU briefly for monitoring and was transferred to the floor on 04/19 Toxic encephalopathy due to seroquel overdose, resolved Patient with reassuring improvement in mental status, QTc improved to ~450ms and remains stable. - Psychiatry consulted - appreciate recs - recommends inpatient psychiatric hospitalization; patient medically stable for transfer - Discharged to [facility] psych unit. Schizoaffective Disorder, Bipolar Type; Depression/Anxiety; Parasuicidal behavior - Psychiatry consulted as stated above - re-started home Fluoxetine, Lamotrigine, [place], Lurasidone, Mirtazapine, Quetiapine with improvement in QTc Cystic fibrosis - Continue home CF regimen - Continue percussion therapy - Contact precautions T1DM - CGM and pump turned off on admission - to be resumed on discharge. - SSI + Lantus; appreciated glycemic consult FEN/GI: DM2 diet Code status: full code DVT ppx: held - low risk (2) Prolonged QT interval: (3) Hypoglycemia: Total Time Total Time Spent Total Time Spent (In Minutes): 30 minutes Discharge Plan Discharge Items Patient Disposition: Transfer Behavioral Health Fac Reason For Visit: INTENTIONAL OVERDOSE Discharge Diagnosis: Toxic Encephalopathy due to Seroquel Overdose Activity: Per Instructions section Non-emergency contact: Primary Care Provider and Psychiatrist Call non-emergency contact if: you have any medication questions and your symptoms worsen Follow-up/Referrals: Maxine Cortez MD [Primary Care Provider] - Diet: Carb Consistent or DM2 Addtl Attending Provider Instructions: Elio Arguelles is a 40yo male with PMHx significant for cystic fibrosis, T1DM, Schizoaffective Disorder Bipolar Type, Depression/Anxiety, and history of parasuicidal behavior who presents with intentional overdose of Quetiapine. He was admitted to ICU briefly for monitoring and was transferred to the floor on 04/19 - patient is medically stable for transfer to inpatient psychiatry floor at this time. Toxic encephalopathy due to seroquel overdose, resolved Patient with reassuring improvement in mental status, QTc improved to ~450ms and remains stable. - Psychiatry consulted - appreciate recs - recommends inpatient psychiatric hospitalization; patient is medically stable for transfer at this time Schizoaffective Disorder, Bipolar Type; Depression/Anxiety; Parasuicidal behavior - re-started home Fluoxetine, Lamotrigine, [place], Lurasidone, Mirtazapine, Quetiapine - Psychiatry consulted as stated above Cystic fibrosis - Continue home CF regimen - Continue percussion therapy - Contact precautions T1DM - CGM and pump turned off on admission - SSI + Lantus; appreciate glycemic consult FEN/GI: DM2 diet Code status: full code DVT ppx: held - low risk Pending Studies at Discharge: No Stand-Alone Forms: My [facility] Medications and DC Order Prescriptions: Continued fenofibrate nanocrystallized 145 mg tablet 145 mg PO DAILY Qty: 90 RF: 3 levothyroxine 75 mcg tablet 75 mcg PO DAILY Qty: 90 RF: 1 Novolog U-100 Insulin aspart 100 unit/mL solution See Rx Instructions SQ DAILY 90 Days Qty: 9 RF: 3 cholecalciferol (vitamin D3) 5,000 unit capsule 5,000 units PO DAILY RF: 0 Hold Instructions: Switching to 50,000 IU/week x 12 weeks multivitamin tablet 1 tab PO DAILY RF: 0 lamotrigine 150 mg tablet 150 mg PO BID RF: 0 Linzess 72 mcg capsule 72 mcg PO DAILY RF: 0 [place] 75 mg/mL solution for nebulization 75 mg inhalation TID RF: 0 ipratropium-albuterol 0.5 mg-3 mg(2.5 mg base)/3 mL solution for nebulization 3 ml inhalation BID RF: 0 sodium chloride 3 % solution for nebulization 4 ml inhalation Q8H RF: 0 lithium carbonate 450 mg tablet extended release 450 mg PO HS RF: 0 lithium carbonate [Lithobid] 300 mg tablet extended release 300 mg PO QAM RF: 0 famotidine 20 mg tablet 20 mg PO DAILY RF: 0 Chantix 1 mg tablet 1 mg PO DAILY RF: 0 Latuda 80 mg tablet 160 mg PO HS RF: 0 quetiapine [Seroquel] 200 mg tablet 200 mg PO HS RF: 0 Trikafta 100-50-75 mg(d) /150 mg (n) tablets, sequential 3 ea PO DAILY RF: 0 Zenpep 20,000-63,000- 84,000 unit capsule,delayed release(DR/EC) 20,000 cap PO UD RF: 0 colistin (colistimethate Na) 150 mg Recon Soln 75 mg INHALATION BID RF: 0 mirtazapine 15 mg tablet 15 mg PO HS PRN (Reason: sleep) RF: 0 fluoxetine 20 mg capsule 20 mg PO QAM RF: 0 Discharge Orders: Discharge Order (Routine); Ordered 04/22/21 Ordered By: Elio Mandujano/Other Patient Handouts: A1C, Managing Type 1 Diabetes Admission Data Admit Date/Time: 04/17/21 23:46 Attending Provider: Macarena Ortiz Admit Provider: Giovanni Patel Primary Care Provider: Maxine Cortez Other Providers: Becky Alves ; Cole Holcomb ; Laura Cabrera ; Dr Harsha ; Laura Garcia ; Gamaliel Gordillo Other Interventions: Discharge Summary Assessment (RN) Last Done: 04/22/21 10:19 PSY Interdisciplinary Discharge Planning Last Done: 04/20/21 12:50 Supervising Physician Co-Signing Physician Notes Resident Physician Supervision Note: I independently interviewed and examined the patient and verified the pa history and physical, reviewed labs and image studies and agree with resident Dr. Kim findings and care plan. Resident Activity Tracking Resident Involvement: Resident Care Provided Care Provided: Adult Hospital Medicine
[2021-04-22] MEDS: SODIUM CHLOR 7% 4 ML NEB NEB SCH (06:56)
[2021-04-22] MEDS: COLISTIN INH SCH (06:56)
[2021-04-22] MEDS: DORNASE ALFA 2.5 ML AMP INH SCH (06:56)
[2021-04-22] MEDS: ZENPEP PO SCH (08:41)
[2021-04-22] MEDS: FENOFIBRATE NANOCRYSTALLIZED 145 MG TABLET PO SCH (08:42)
[2021-04-22] MEDS: CHOLECALCIFEROL 1,000 UNITS 25 MCG TAB PO SCH (08:42)
[2021-04-22] MEDS: FAMOTIDINE 20 MG TAB PO SCH (08:42)
[2021-04-22] MEDS: lamoTRIgine 100 MG TAB PO SCH (08:43)
[2021-04-22] MEDS: FLUoxetine HCL 20 MG CAP PO SCH (08:43)
[2021-04-22] MEDS: INSULIN GLARGINE SOLOSTAR 100 UNITS/ML 3 ML PEN SC SCH (08:43)
[2021-04-22] MEDS: linaCLOtide 72 MCG CAPSULE PO SCH (08:44)
[2021-04-22] MEDS: LITHIUM CARBONATE SLOW REL 300 MG TAB PO SCH (08:45)
[2021-04-22] MEDS: TRIKAFTA PO SCH (08:45)
[2021-04-22] MEDS: MULTIVITAMIN TAB PO SCH (08:45)
[2021-04-22] MEDS: VARENICLINE 1 MG TAB PO SCH (08:46)
--- NOTE | 2021-04-22 08:54 | Electrocardiogram Report ---
Test Reason : Blood Pressure : / mmHG Vent. Rate : 088 BPM Atrial Rate : 088 BPM P-R Int : 142 ms QRS Dur : 098 ms QT Int : 380 ms P-R-T Axes : 045 030 033 degrees QTc Int : 459 ms Poor data quality, interpretation may be adversely affected Normal sinus rhythm Incomplete right bundle branch block Diffuse Nonspecific T wave abnormality Abnormal ECG When compared with ECG of 21-APR-2021 04:59, No significant change was found Confirmed by Juan Pleitez ([id number]) on 04/22/2021 8:54:19 AM Referred By: REFERRED SELF Confirmed By:Juan Pleitez
== END 2021-04-22 10:48 | DRG 917 ==
LOC: ED 20:32 → 1E 23:46 → SUATTDRO 23:46 → 1E 04-18 01:05 → 2S 04-19 09:32

== ENCOUNTER 2021-04-22 10:26 | Inpatient (IN) ==
[2021-04-22] MEDS ORDERED: BISMUTH SUBSALICYLATE LIQD 236 ML PO PRN (10:30)
[2021-04-22] MEDS ORDERED: ACETAMINOPHEN 325 MG TAB PO PRN (10:30)
[2021-04-22] MEDS ORDERED: ALUMINUM/MAGNESIUM SUSP 30 ML UDC PO PRN (10:30)
[2021-04-22] MEDS ORDERED: MAGNESIUM HYDROXIDE SUSP 30 ML UDC PO PRN (10:30)
[2021-04-22] MEDS ORDERED: SODIUM CHLORIDE 0.65% NA SOLN 45 ML (OCEAN) PRN (10:30)
[2021-04-22] MEDS ORDERED: PHARMACY GLYCEMIC MGMT CONSULT PRN (12:32)
[2021-04-22] MEDS ORDERED: GLUCOSE 10 TABS/TUBE PO PRN (12:45)
[2021-04-22] MEDS ORDERED: CARBOHYDRATES FOR HYPOGLYCEMIA PO PRN (12:45)
[2021-04-22] MEDS ORDERED: DEXTROSE 50% 50 ML SYRINGE IV PRN (12:45)
[2021-04-22] MEDS ORDERED: GLUCOSE 40% GEL 15 GM TUBE PO PRN (12:45)
[2021-04-22] MEDS ORDERED: GLUCAGON FOR INJ 1 MG VIAL IM PRN (12:45)
--- NOTE | 2021-04-22 13:50 | Pharmacy Report ---
Pharmacy Glycemic Short Note 2 - Date of Service April 22, 2021 - Glycemic Short BSG Results (Last 24 hours): 04/22/21 12:21 POC Glucose 140 H OUTPATIENT ANTIDIABETIC REGIMEN: * A1c = 7.2 % * Per family member: Novolog Insulin pump * Basal: 0.7 units/hr (16.8 units/day) * CF 1:80, CR 1:25 ASSESSMENT: 04/22: * Patient received total of 28 units of insulin yesterday, of which 16 units were basal insulin * Fasting BSG 117 mg/dL - plan to continue same basal insulin * No change to CF/CR 04/20: * Patient received total of 33 units of insulin yesterday, of which 16 units were basal insulin (similar to home pump basal 0.7 units/hr ~16 units/day) * Fasting BSG 134 mg/dL - plan to continue home basal * PO intake minimal yesterday, continues on diet today - will loosen CF now that more basal insulin on board 04/19: * Elio received 24 units of insulin yesterday with fluctuating BSG control (12 units basal and 12 units bolus) * Fasting BSG of 191 mg/dL is above goal. I will increase basal insulin. * Post prandial hyperglycemia yesterday despite NPO status. Diet advanced today, therefore I will tighten Novolog CF. * Will advance doses conservatively given patients altered mental status, although improving, and insulin sensitivity. 04/18: * Elio is 40 yo T1DM male admitted s/p seroquel overdose * Patient is maintained on a novolog insulin pump at home. Pump was disconnected upon arrival. Patient was started on SQ basal + bolus insulin. * Will continue reduced dose of basal insulin for NPO status * Continue frequent monitoring (q4h) until patient is more stable and insulin needs are better known. PLAN FOR INPATIENT GLYCEMIC CONTROL: * Insulin pump on hold * Basal insulin * Lantus 16 units daily * Bolus insulin * NovoLog per scale ACHS or Q6hrs while NPO * Goal Range: Low 110 mg/dL - High 140 mg/dL * Tighten Correction Factor: 30 mg/dL/unit * Nutritional / Prandial insulin per carb ratio of 1 unit per 20 grams CHO consumed PLAN FOR DISCHARGE: * A1c = 7.2%. * Continue home insulin pump on discharge assuming mental status has returned to baseline. Follow up with outpatient provider for dose adjustments as needed.
[2021-04-22] MEDS: INSULIN ASPART 100 UNITS/ML 3 ML PEN SC SCH ×3 (13:58→20:55)
--- NOTE | 2021-04-22 15:47 | History & Physical ---
Date of Service April 22, 2021 Impression / Recommendations Impression 40-year-old male who carries a diagnosis of schizoaffective disorder presenting after a impulsive suicide attempt following a argument with his . Patient is now denying symptoms of depression or suicidal ideation, but does acknowledge difficulties with his impulsivity, frustration tolerance, anger. He is agreeable to medication changes in order to address these concerns and he will benefit from inpatient hospitalization for purposes of safety, stabilization, and medication management. (1) Impulsiveness: The patient was admitted to the [facility] ([facility]) on every 15 minute checks (behavioral with suicide precautions for safety. The patient will participate in group, recreational, and milieu therapies and will be offered additional individual and family sessions as clinically appropriate. Patient is taking multiple agents which served to stabilize his mood including Lamictal, lithium, fluoxetine and Latuda. In an effort to combat impulsiveness further, lithium level will be checked tomorrow morning to ensure adequate dosing. Furthermore Latuda will be substituted for risperidone at a dosage of 2 mg p.o. twice daily with first dose of 2 mg starting tonight. Psychiatric History Identifying Data SUMI OLIVEIRA is a 40-year-old M who currently lives in [place] with and 4 children, has a history of schizoaffective disorder, and was admitted on 04/22/21 10:30 on a 201 voluntary commitment for suicide attempt. Chief Complaint "I am fine, it was just a stupid impulsive thing". History of Present Illness Patient is a 40-year-old male who carries a diagnosis of schizoaffective disorder who presents to medical service following an overdose of Seroquel. According to report patient swallowed approximately 20 200 mg Seroquel tablets in an attempt to end his life. Patient has a history of doing so in the past including less than 1 year prior where he attempted suicide via Seroquel under similar circumstances. Patient states that he is not depressed or upset. He denies any psychotic symptoms except for last week in the ICU when patient was delirious. Patient states that he is always struggled with his impulsivity and his anger as he appears to get very upset in the moment and will often do things that he regrets. Patient states that the last time he got into an argument regarding finances on buying a new truck and upon doing so had swallowed the Seroquel and attempt to end his life. Patient states that the circumstances from this were similar as the situation involved following an argument with his . Patient states that he was outside grilling hamburgers when the propane on the grill ran out. Patient stated that he then turned off the grill figuring he was finished cooking when his presented him with hot dogs to finish filling out. Patient stated that he did not want to go get the other propane tank and refused to do so despite his asking him multiple times to do so. Patient states that he then became very worked up due to the argument that they were having so much so that he did not eat dinner. Patient states that they continue to argue inside the house at which point his left the room for a minute and patient then swallowed these medications as an attempt to end his life. Patient states that approximately half hour after it happened he immediately regretted it and wished he had not taken the medications. Patient then had a stay in the ICU due to the delirium as well as cardiac effects he was experiencing as a result of the high levels of Seroquel. During that time he continued to deny any suicidal ideation, and requested to continue his psychiatric treatment and outpatient basis. Liaison service contacted patient's outpatient psychiatrist who felt the patient would benefit from a stay in order to restart and adjust medications. Patient is presenting calmly and cooperatively and denying any further suicidal ideation. He continues to downplay the severity of his attempt as well as the severity of his impulsivity. Patient stated that he is currently engaged in therapy which he enjoys. He states that he is also engaged in outpatient care to which he is compliant with. He is agreeable to medication changes in order to address his impulsivity as well as continuing his care on an outpatient basis following his discharge from the unit. He was also informed as to some see additional safety measures that can be taken including medication lock boxes and spousal support for medication administration. Patient denies any substance use. Past Psychiatric History Current Psychiatric Diagnosis: Hx of Schizoaffective Allergies Allergy/AdvReac Type Severity Reaction Status Date / Time No Known Allergies Allergy Verified 04/09/21 07:09 Home Medications Medication Instructions Recorded Confirmed Type cholecalciferol (vitamin D3) 125 5,000 units PO DAILY cap 08/13/19 04/22/21 History mcg (5,000 unit) capsule multivitamin 1 tab PO DAILY 08/13/19 04/22/21 History famotidine 20 mg tablet 20 mg PO DAILY 08/23/19 04/22/21 History lithium carbonate 300 mg 300 mg PO QAM 08/23/19 04/22/21 History tablet,extended release (Lithobid) lurasidone 80 mg tablet (Latuda) 160 mg PO HS 08/23/19 04/22/21 History varenicline 1 mg tablet (Chantix) 1 mg PO DAILY 08/23/19 04/22/21 History colistin (colistimethate Na) 150 75 mg INHALATION BID 10/23/19 04/22/21 History mg solution for injection [id number] 20,000 cap PO UD 10/23/19 04/22/21 History 20,000-63,000-84,000 unit capsule, delayed rel (Zenpep) fenofibrate nanocrystallized 145 145 mg PO DAILY #90 tab 09/29/20 04/22/21 Rx mg tablet levothyroxine 75 mcg tablet 75 mcg PO DAILY #90 tab 11/07/20 04/22/21 Rx aztreonam lysine 75 mg/mL solution 75 mg INHALATION TID 11/26/20 04/22/21 History for nebulization ([facility]) elexacaftor 100 mg-tezacaf 3 ea PO DAILY ea 11/26/20 04/22/21 History 50mg-ivacaf 75mg(d)/ivacaf 150mg(n) tablets (Trikafta) ipratropium 0.5 mg-albuterol 3 mg 3 ml INHALATION BID ml 11/26/20 04/22/21 History (2.5 mg base)/3 mL nebulization soln lamotrigine 150 mg tablet 150 mg PO BID 11/26/20 04/22/21 History linaclotide 72 mcg capsule 72 mcg PO DAILY 11/26/20 04/22/21 History (Linzess) lithium carbonate 450 mg 450 mg PO HS tab 11/26/20 04/22/21 History tablet,extended release mirtazapine 15 mg tablet 15 mg PO HS PRN 11/26/20 04/22/21 History quetiapine 200 mg tablet (Seroquel) 200 mg PO HS 11/26/20 04/22/21 History sodium chloride 3 % for 4 ml INHALATION Q8H 11/26/20 04/22/21 History nebulization Novolog U-100 Insulin aspart 100 See Rx Instructions SQ DAILY 90 12/17/20 04/22/21 Rx unit/mL subcutaneous solution Days #9 vial NS (insulin aspart U-100) fluoxetine 20 mg capsule 20 mg PO QAM 04/18/21 04/22/21 History Family History Family History of: None Alcohol History Hx of Alcohol Use Over the Past 12 Months: No AUDIT Total Score: 0 Smoking Use Have You Smoked or Used Tobacco Products in the Last 30 Days: Yes tobacco type: cigarettes Smoking Status: Current some day smoker Substance History Hx of Prescription Med Misuse Over the Past 12 Months: Yes Hx of Over the Counter Med Misuse Over the Past 12 Months: No Hx of Inhalent Misuse Over the Past 12 Months: No Hx of Organic Substance Use Over the Past 12 Months: No Hx of Illegal Substances/Street Drug Use Over Past 12 Months: No Problems as a Result of Past Substance Use: None Identified Personal History Living Arrangements: Home Highest Grade Completed: High School Graduate Marital Status: Number Of Children: 4 Beliefs That Will Affect Care: None Patient History Medical History Anemia Anticholinergic syndrome Anxiety Bipolar disorder Cystic fibrosis Depression Discharge planning issues Drug overdose DVT prophylaxis Encephalopathy History of gastrostomy tube placement Hypertriglyceridemia Hypothyroidism Prolonged QT interval Schizoaffective disorder Small bowel obstruction Suicide attempt Uncontrolled type 1 diabetes mellitus, with long-term current use of insulin Ventral hernia Surgical History History of cholecystectomy History of Hollie fundoplication No pertinent past surgical history Family History Mother Bipolar disorder Anxiety Hard of hearing Depression Cancer Hypertension Breast cancer Father Diabetes Hypertension Hard of hearing Lung cancer Brother Depression Grandfather Myocardial infarction Other No significant family history Denies family history of Ovarian cancer Prostate cancer Colorectal cancer Social History Smoking Status: Current some day smoker Tobacco Type: Cigarettes Age Started Using Tobacco: 15; Age Quit Using Tobacco: 34; packs per day: 1; Second Hand Exposure: No; Preferred Language: Syriac Communication Ability: Effective Visual Impairment: Limited Hearing Ability: Normal Wafer Fabricator Required: No Beliefs That Will Affect Care: None marital status: Current Living Situation: Spouse current occupational status: employed 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 Internal Feels Safe at Home: Yes Assistive Devices: None Review of Systems Review of Systems: All systems reviewed & are unremarkable except as noted in HPI & below Physical Exam Psychiatric: Orientation: alert and oriented x 3 Apperance: appropriately groomed Eye Contact: + fair eye contact Motor Behavior: + tremor Speech: + pressured speech Affect: euthymic affect Mood: no depressed mood, no anxious mood and no dysphoric mood Thought Process: goal directed thought process Thought Content: reality based without delusions Suicidal Thoughts: denies suicidal thoughts and denies suicidal plan Homicidal Thoughts: denies homicidal thoughts and denies homicidal plan Hallucinations: no auditory hallucinations and no visual hallucinations Cognition: recent memory grossly intact Estimated Intelligence: consistent with education level Insight: + limited insight Judgement: + limited judgement Vital Signs (Past 24 Hours): Last Vital Signs Temp 37.0 C 04/22/21 11:02 Pulse 92 H 04/22/21 11:02 Resp 20 04/22/21 11:02 BP 117/82 04/22/21 11:02 Results & Data ([facility]) Laboratory Results Laboratory Results - last 24 hr 04/22/21 12:21 POC Glucose 140 H Current Inpatient Medications Current Inpatient Medications: Current Inpatient Medications Acetaminophen (Acetaminophen 325 Mg Tab) 650 mg PO Q4H PRN PRN Reason: Headache or Minor Fever Stop: 05/22/21 10:29 Al Hydrox/Mg Hydrox/Simethicone (Aluminum/Magnesium Susp 30 Ml Udc) 30 ml PO Q4H PRN PRN Reason: GI Upset Stop: 05/22/21 10:29 Albuterol (Albut/Ipratrop 3mg/0.5mg Neb 3 Ml Vial) 3 ml INH BIDR JAVIER Stop: 05/22/21 18:59 Bismuth Subsalicylate (Bismuth Subsalicylate Liqd 236 Ml) 15 ml PO PRN PRN PRN Reason: Loose Stool Stop: 05/22/21 10:29 Colistimethate Sodium (Colistin (Colistimethate Na) 150 Mg Vial) 75 mg INH BIDR JAVIER Stop: 05/22/21 18:59 Dextrose (Dextrose 50% 50 Ml Syringe) 25 - 50 ml IV UD PRN; Protocol PRN Reason: Hypoglycemia Protocol Stop: 05/22/21 12:44 Famotidine (Famotidine 20 Mg Tab) 20 mg PO DAILY JAVIER Stop: 05/23/21 08:59 Fenofibrate (Fenofibrate Nanocrystallized 145 Mg Tablet) 145 mg PO DAILY JAVIER Stop: 05/23/21 08:59 Fluoxetine HCl (Fluoxetine Hcl 20 Mg Cap) 20 mg PO QAM JAVIER Stop: 05/23/21 08:59 Glucagon (Glucagon For Inj 1 Mg Vial) 1 mg IM UD PRN; Protocol PRN Reason: Hypoglycemia Protocol Stop: 05/22/21 12:44 Glucose (Glucose 40% Gel 15 Gm Tube) 15 - 30 gm PO UD PRN; Protocol PRN Reason: Hypoglycemia Protocol Stop: 05/22/21 12:44 Glucose (Glucose 10 Tabs/Tube) 4 - 8 tabs PO UD PRN; Protocol PRN Reason: Hypoglycemia Protocol Stop: 05/22/21 12:44 Insulin Aspart (Insulin Aspart 100 Units/Ml 3 Ml Pen) 0 units SC ACHS JAVIER Stop: 05/22/21 12:44 Last Admin: 04/22/21 13:58 Dose: Not Given Documented by: Insulin Glargine (Insulin Glargine Solostar 100 Units/Ml 3 Ml Pen) 16 units SC QAM JAVIER Stop: 05/23/21 08:59 Lamotrigine (Lamotrigine 100 Mg Tab) 150 mg PO BID JAVIER Stop: 05/22/21 20:59 Levothyroxine Sodium (Levothyroxine Sodium 75 Mcg Tablet) 75 mcg PO DAILYBB JAVIER Stop: 05/23/21 07:59 Linaclotide (Linaclotide 72 Mcg Capsule) 72 mcg PO DAILY JAVIER Stop: 05/23/21 08:59 [place] Carbonate ([place] Carbonate 450 Mg Tabcr) 450 mg PO HS JAVIER Stop: 05/22/21 21:59 [place] Carbonate ([place] Carbonate Slow Rel 300 Mg Tab) 300 mg PO QAM JAVIER Stop: 05/23/21 08:59 Magnesium Hydroxide (Magnesium Hydroxide Susp 30 Ml Udc) 30 ml PO DAILY PRN PRN Reason: Constipation Stop: 05/22/21 10:29 Miscellaneous (Carbohydrates For Hypoglycemia ) 15 - 30 gm PO UD PRN PRN Reason: Hypoglycemia Treatment Stop: 05/22/21 12:44 Miscellaneous Information (Pharmacy Glycemic Mgmt Consult) 1 ea N/A UD PRN PRN Reason: Consult Stop: 05/22/21 12:31 Multivitamins (Multivitamin Tab) 1 tab PO DAILY JAVIER Stop: 05/23/21 08:59 *Trikafta*Non- Formulary Patient's Own Med 1 ea PO QDD JAVIER Stop: 05/22/21 17:44 *Zenpep*Non- Formulary Patient's Own Med 0 ea PO TIDM JAVIER Stop: 05/22/21 17:44 *Trikafta*Non- Formulary Patient's Own Med 2 ea PO QAM JAVIER Stop: 05/23/21 08:59 Risperidone (Risperidone 2 Mg Tablet) 2 mg PO BID JAVIER Stop: 05/22/21 20:59 Sodium Chloride (Sodium Chloride 0.65% Na Soln 45 Ml ([place])) 1 - 2 sprays NA PRN PRN PRN Reason: Nasal Dryness/Congestion Stop: 05/22/21 10:29 Sodium Chloride (Sodium Chlor 7% 4 Ml Neb) 4 ml INH BIDR JAVIER Stop: 05/22/21 18:59 Vitamin D (Cholecalciferol 1,000 Units 25 Mcg Tab) 5,000 units PO DAILY JAVIER Stop: 05/23/21 08:59
[2021-04-22] MEDS: ZENPEP PO SCH (18:13)
[2021-04-22] MEDS: TRIKAFTA PO SCH (18:17)
[2021-04-22] MEDS: ALBUT/IPRATROP 3MG/0.5MG NEB 3 ML VIAL INH SCH (20:37)
[2021-04-22] MEDS: SODIUM CHLOR 7% 4 ML NEB INH SCH (20:39)
[2021-04-22] MEDS: COLISTIN INH SCH (20:40)
[2021-04-22] MEDS ORDERED: [UNRECOGNIZED DRUG - OTHER] INH SCH (21:00)
[2021-04-22] MEDS ORDERED: COLISTIN INH SCH (21:00)
[2021-04-22] MEDS: lamoTRIgine 100 MG TAB PO SCH (21:01)
[2021-04-22] MEDS: LITHIUM CARBONATE 450 MG TABCR PO SCH (21:01)
[2021-04-22] MEDS: risperiDONE 2 MG TABLET PO SCH (21:01)
[2021-04-23] MEDS: SODIUM CHLOR 7% 4 ML NEB INH SCH ×2 (07:32→20:58)
[2021-04-23] MEDS: COLISTIN INH SCH ×2 (07:39→21:01)
[2021-04-23] MEDS: ALBUT/IPRATROP 3MG/0.5MG NEB 3 ML VIAL INH SCH ×2 (07:39→20:58)
[2021-04-23] MEDS: LEVOTHYROXINE SODIUM 75 MCG TABLET PO SCH (07:53)
[2021-04-23] MEDS: CHOLECALCIFEROL 1,000 UNITS 25 MCG TAB PO SCH (09:06)
[2021-04-23] MEDS: FAMOTIDINE 20 MG TAB PO SCH (09:07)
[2021-04-23] MEDS: FENOFIBRATE NANOCRYSTALLIZED 145 MG TABLET PO SCH (09:07)
[2021-04-23] MEDS: FLUoxetine HCL 20 MG CAP PO SCH (09:07)
[2021-04-23] MEDS: lamoTRIgine 100 MG TAB PO SCH ×2 (09:08→20:41)
[2021-04-23] MEDS: linaCLOtide 72 MCG CAPSULE PO SCH (09:09)
[2021-04-23] MEDS: risperiDONE 2 MG TABLET PO SCH ×2 (09:09→20:42)
[2021-04-23] MEDS: LITHIUM CARBONATE SLOW REL 300 MG TAB PO SCH (09:09)
[2021-04-23] MEDS: MULTIVITAMIN TAB PO SCH (09:09)
[2021-04-23] MEDS: INSULIN GLARGINE SOLOSTAR 100 UNITS/ML 3 ML PEN SC SCH (09:10)
[2021-04-23] MEDS: INSULIN ASPART 100 UNITS/ML 3 ML PEN SC SCH ×4 (09:27→20:43)
[2021-04-23] MEDS: TRIKAFTA PO SCH ×2 (09:28→18:22)
[2021-04-23] MEDS: ZENPEP PO SCH ×3 (09:29→18:21)
--- NOTE | 2021-04-23 11:26 | Psychiatric Progress Note ---
Date of Service April 23, 2021 Impression / Recommendations Impression 40-year-old male who carries a diagnosis of schizoaffective disorder presenting after a impulsive suicide attempt following a argument with his . Patient is now denying symptoms of depression or suicidal ideation, but does acknowledge difficulties with his impulsivity, frustration tolerance, anger. He is agreeable to medication changes in order to address these concerns and he will benefit from inpatient hospitalization for purposes of safety, stabilization, and medication management. (1) Impulsiveness: The patient was admitted to the [facility] ([facility] unit) on every 15 minute checks (behavioral with suicide precautions for safety. The patient will participate in group, recreational, and milieu therapies and will be offered additional individual and family sessions as clinically appropriate. 04/22/2021atient is taking multiple agents which served to stabilize his mood including Lamictal, lithium, fluoxetine and Latuda. In an effort to combat impulsiveness further, lithium level will be checked tomorrow morning to ensure adequate dosing. Furthermore Latuda will be substituted for risperidone at a dosage of 2 mg p.o. twice daily with first dose of 2 mg starting tonight. We will hold Chantix medication for concern that it is potentially destabilizing patient. 04/23/2021atient continues to do well denying any suicidal ideation or impulses. We will continue to monitor as patient is uptitrated on risperidone to target dose of 4 mg daily. Continue to hold Chantix. Interval History Chief Complaint "I'm fine". Review of Systems Sleep Information Total Hours of Sleep: 8.25 Sleep Comments: pt appeared to sleep 1.25 hrs during evening shift. pt on q-15 minute checks Meal Information Percent Meal Consumed - Breakfast: 0 Percent Meal Consumed - Dinner: 25 Subjective Subjective Patient seen, chart reviewed and case discussed with treatment team, nursing and social work. Patient reports a good night of sleep and good appetite. Patient has taken 2 dosages of risperidone medication, no side effects reported or observed. Stokes level came back today at 0.8, he is in therapeutic range. Patient continues to maintain that he is not suicidal and does not require further inpatient treatment. It was explained to patient that he will continue to be observed as we uptitrate on risperidone medication prior to discharge. Denies any psychosis or psychotic symptoms. No outbursts or behavioral aggression while here on the unit. No displays of impulsivity or irritability. I spent 30 minutes with the patient, 50% of which was dedicated to counselling and coordination of care. Physical Exam Psychiatric Orientation: alert and oriented x 3 Apperance: appropriately groomed Eye Contact: + fair eye contact Motor Behavior: + tremor Speech: + pressured speech Affect: euthymic affect Mood: no depressed mood, no anxious mood and no dysphoric mood Thought Process: goal directed thought process Thought Content: reality based without delusions Suicidal Thoughts: denies suicidal thoughts and denies suicidal plan Homicidal Thoughts: denies homicidal thoughts and denies homicidal plan Hallucinations: no auditory hallucinations and no visual hallucinations Cognition: recent memory grossly intact Estimated Intelligence: consistent with education level Insight: + limited insight Judgement: + limited judgement Vital Signs (Past 24 Hours) Last Vital Signs Temp 36.6 C 04/23/21 06:45 Pulse 93 H 04/23/21 07:41 Resp 16 04/23/21 07:41 BP 137/77 04/23/21 06:47 Pulse Ox 96 04/23/21 07:41 Results & Data ([facility]) Laboratory Results Laboratory Results - last 24 hr 04/22/21 04/22/21 04/22/21 12:21 17:04 20:48 POC Glucose 140 H 128 H 280 H Stokes 04/23/21 04/23/21 07:47 08:03 POC Glucose 105 H Stokes 0.8 Current Inpatient Medications Current Inpatient Medications: Current Inpatient Medications Acetaminophen (Acetaminophen 325 Mg Tab) 650 mg PO Q4H PRN PRN Reason: Headache or Minor Fever Stop: 05/22/21 10:29 Al Hydrox/Mg Hydrox/Simethicone (Aluminum/Magnesium Susp 30 Ml Udc) 30 ml PO Q4H PRN PRN Reason: GI Upset Stop: 05/22/21 10:29 Albuterol (Albut/Ipratrop 3mg/0.5mg Neb 3 Ml Vial) 3 ml INH BIDR JAVIER Stop: 05/22/21 18:59 Last Admin: 04/23/21 07:39 Dose: 3 ml Documented by: Bismuth Subsalicylate (Bismuth Subsalicylate Liqd 236 Ml) 15 ml PO PRN PRN PRN Reason: Loose Stool Stop: 05/22/21 10:29 Colistimethate Sodium (Colistin (Colistimethate Na) 150 Mg Vial) 75 mg INH BIDR [facility] Stop: 05/22/21 18:59 Last Admin: 04/23/21 07:39 Dose: 75 mg Documented by: Dextrose (Dextrose 50% 50 Ml Syringe) 25 - 50 ml IV UD PRN; Protocol PRN Reason: Hypoglycemia Protocol Stop: 05/22/21 12:44 Famotidine (Famotidine 20 Mg Tab) 20 mg PO DAILY [facility] Stop: 05/23/21 08:59 Last Admin: 04/23/21 09:07 Dose: 20 mg Documented by: Fenofibrate (Fenofibrate Nanocrystallized 145 Mg Tablet) 145 mg PO DAILY [facility] Stop: 05/23/21 08:59 Last Admin: 04/23/21 09:07 Dose: 145 mg Documented by: Fluoxetine HCl (Fluoxetine Hcl 20 Mg Cap) 20 mg PO QAM [facility] Stop: 05/23/21 08:59 Last Admin: 04/23/21 09:07 Dose: 20 mg Documented by: Glucagon (Glucagon For Inj 1 Mg Vial) 1 mg IM UD PRN; Protocol PRN Reason: Hypoglycemia Protocol Stop: 05/22/21 12:44 Glucose (Glucose 40% Gel 15 Gm Tube) 15 - 30 gm PO UD PRN; Protocol PRN Reason: Hypoglycemia Protocol Stop: 05/22/21 12:44 Glucose (Glucose 10 Tabs/Tube) 4 - 8 tabs PO UD PRN; Protocol PRN Reason: Hypoglycemia Protocol Stop: 05/22/21 12:44 Insulin Aspart (Insulin Aspart 100 Units/Ml 3 Ml Pen) 0 units SC ACHS [facility] Stop: 05/22/21 12:44 Last Admin: 04/23/21 09:27 Dose: Not Given Documented by: Insulin Glargine (Insulin Glargine Solostar 100 Units/Ml 3 Ml Pen) 16 units SC QAM [facility] Stop: 05/23/21 08:59 Last Admin: 04/23/21 09:10 Dose: 16 units Documented by: Lamotrigine (Lamotrigine 100 Mg Tab) 150 mg PO BID [facility] Stop: 05/22/21 20:59 Last Admin: 04/23/21 09:08 Dose: 150 mg Documented by: Levothyroxine Sodium (Levothyroxine Sodium 75 Mcg Tablet) 75 mcg PO DAILYBB [facility] Stop: 05/23/21 07:59 Last Admin: 04/23/21 07:53 Dose: 75 mcg Documented by: Linaclotide (Linaclotide 72 Mcg Capsule) 72 mcg PO DAILY JAVIER Stop: 05/23/21 08:59 Last Admin: 04/23/21 09:09 Dose: 72 mcg Documented by: [place] Carbonate ([place] Carbonate 450 Mg Tabcr) 450 mg PO HS JAVIER Stop: 05/22/21 21:59 Last Admin: 04/22/21 21:01 Dose: 450 mg Documented by: [place] Carbonate ([place] Carbonate Slow Rel 300 Mg Tab) 300 mg PO QAM JAVIER Stop: 05/23/21 08:59 Last Admin: 04/23/21 09:09 Dose: 300 mg Documented by: Magnesium Hydroxide (Magnesium Hydroxide Susp 30 Ml Udc) 30 ml PO DAILY PRN PRN Reason: Constipation Stop: 05/22/21 10:29 Miscellaneous (Carbohydrates For Hypoglycemia ) 15 - 30 gm PO UD PRN PRN Reason: Hypoglycemia Treatment Stop: 05/22/21 12:44 Miscellaneous Information (Pharmacy Glycemic Mgmt Consult) 1 ea N/A UD PRN PRN Reason: Consult Stop: 05/22/21 12:31 Multivitamins (Multivitamin Tab) 1 tab PO DAILY JAVIRE Stop: 05/23/21 08:59 Last Admin: 04/23/21 09:09 Dose: 1 tab Documented by: *Soco*Non- Formulary Patient's Own Med 1 ea PO QDD JAVIER Stop: 05/22/21 17:44 Last Admin: 04/22/21 18:17 Dose: 1 tab Documented by: *Alejandrina*Non- Formulary Patient's Own Med 0 ea PO TIDM JAVIER Stop: 05/22/21 17:44 Last Admin: 04/23/21 09:29 Dose: Not Given Documented by: *Soco*Non- Formulary Patient's Own Med 2 ea PO QAM [facility]IER Stop: 05/23/21 08:59 Last Admin: 04/23/21 09:28 Dose: Not Given Documented by: Risperidone (Risperidone 2 Mg Tablet) 2 mg PO BID J[facility]IER Stop: 05/22/21 20:59 Last Admin: 04/23/21 09:09 Dose: 2 mg Documented by: Sodium Chloride (Sodium Chloride 0.65% Na Soln 45 Ml ([place])) 1 - 2 sprays NA PRN PRN PRN Reason: Nasal Dryness/Congestion Stop: 05/22/21 10:29 Sodium Chloride (Sodium Chlor 7% 4 Ml Neb) 4 ml INH BIDR JAVIER Stop: 05/22/21 18:59 Last Admin: 04/23/21 07:32 Dose: 4 ml Documented by: Vitamin D (Cholecalciferol 1,000 Units 25 Mcg Tab) 5,000 units PO DAILY JAVIER Stop: 05/23/21 08:59 Last Admin: 04/23/21 09:06 Dose: 5,000 units Documented by: Mental Health & Subst Abuse Tx Psychiatrist [facility] Psychiatrist's Date of Appointment with Psychiatrist: 05/26/21 Time of Appointment with Psychiatrist: 7:00 PM Psychiatric Appointment Comment: via Zoom Therapist Name of Therapist: Dr. Nehemias Quinonez Therapist's Date of Therapist Appointment: 04/30/21 Time of Therapist Appointment: 11:00 AM Therapy Appointment Comment: Teletherapy Post Discharge Appointments Primary Care Physician Name Of Family Doctor: [facility] - Dr. Cortez [facility] Date of Appointment with PCP: 05/01/21 Time of Appointment with PCP: 2:00 PM Provider Appointment Comment: [address] [place] [address] [place] [address] Contact Information Discharge Discharge Address: [address] [place] [id number]
--- NOTE | 2021-04-23 14:57 | Pharmacy Report ---
Pharmacy Glycemic Short Note 2 - Date of Service April 23, 2021 - Glycemic Short BSG Results (Last 24 hours): 04/22/21 04/22/21 04/23/21 17:04 20:48 07:47 POC Glucose 128 H 280 H 105 H 04/23/21 12:46 POC Glucose 163 H OUTPATIENT ANTIDIABETIC REGIMEN: * A1c = 7.2 % * Per family member: Novolog Insulin pump * Basal: 0.7 units/hr (16.8 units/day) * CF 1:80, CR 1:25 ASSESSMENT: 04/23: * Patient received total 26 units of insulin yesterday; 16 units basal + 10 units bolus. * Fasting BSG = 105 mg/dl today. Continued current dosing of basal insulin. * Post prandial BSG at HS was elevated yesterday. Novolog CR was tightened this AM. 04/22: * Patient received total of 28 units of insulin yesterday, of which 16 units were basal insulin * Fasting BSG 117 mg/dL - plan to continue same basal insulin * No change to CF/CR 04/20: * Patient received total of 33 units of insulin yesterday, of which 16 units were basal insulin (similar to home pump basal 0.7 units/hr ~16 units/day) * Fasting BSG 134 mg/dL - plan to continue home basal * PO intake minimal yesterday, continues on diet today - will loosen CF now that more basal insulin on board 04/19: * Elio received 24 units of insulin yesterday with fluctuating BSG control (12 units basal and 12 units bolus) * Fasting BSG of 191 mg/dL is above goal. I will increase basal insulin. * Post prandial hyperglycemia yesterday despite NPO status. Diet advanced today, therefore I will tighten Novolog CF. * Will advance doses conservatively given patients altered mental status, although improving, and insulin sensitivity. 04/18: * Elio is 40 yo T1DM male admitted s/p seroquel overdose * Patient is maintained on a novolog insulin pump at home. Pump was disconnected upon arrival. Patient was started on SQ basal + bolus insulin. * Will continue reduced dose of basal insulin for NPO status * Continue frequent monitoring (q4h) until patient is more stable and insulin needs are better known. PLAN FOR INPATIENT GLYCEMIC CONTROL: * Insulin pump on hold * Basal insulin * Lantus 16 units daily * Bolus insulin: tightened CR * NovoLog per scale ACHS or Q6hrs while NPO * Goal Range: Low 110 mg/dL - High 140 mg/dL * Tighten Correction Factor: 30 mg/dL/unit * Nutritional / Prandial insulin per carb ratio of 1 unit per 16 grams CHO consumed PLAN FOR DISCHARGE: * A1c = 7.2%. * Continue home insulin pump on discharge assuming mental status has returned to baseline. Follow up with outpatient provider for dose adjustments as needed.
[2021-04-23] MEDS: LITHIUM CARBONATE 450 MG TABCR PO SCH (20:42)
[2021-04-24] MEDS: SODIUM CHLOR 7% 4 ML NEB INH SCH (07:52)
[2021-04-24] MEDS: ALBUT/IPRATROP 3MG/0.5MG NEB 3 ML VIAL INH SCH (07:52)
[2021-04-24] MEDS: COLISTIN INH SCH (07:52)
[2021-04-24] MEDS: FAMOTIDINE 20 MG TAB PO SCH (09:06)
[2021-04-24] MEDS: FENOFIBRATE NANOCRYSTALLIZED 145 MG TABLET PO SCH (09:06)
[2021-04-24] MEDS: LEVOTHYROXINE SODIUM 75 MCG TABLET PO SCH (09:06)
[2021-04-24] MEDS: CHOLECALCIFEROL 1,000 UNITS 25 MCG TAB PO SCH (09:06)
[2021-04-24] MEDS: FLUoxetine HCL 20 MG CAP PO SCH (09:06)
[2021-04-24] MEDS: lamoTRIgine 100 MG TAB PO SCH (09:07)
[2021-04-24] MEDS: MULTIVITAMIN TAB PO SCH (09:07)
[2021-04-24] MEDS: risperiDONE 2 MG TABLET PO SCH (09:07)
[2021-04-24] MEDS: LITHIUM CARBONATE SLOW REL 300 MG TAB PO SCH (09:07)
[2021-04-24] MEDS: linaCLOtide 72 MCG CAPSULE PO SCH (09:08)
[2021-04-24] MEDS: TRIKAFTA PO SCH (09:10)
[2021-04-24] MEDS: ZENPEP PO SCH (09:10)
[2021-04-24] MEDS: INSULIN ASPART 100 UNITS/ML 3 ML PEN SC SCH (09:25)
[2021-04-24] MEDS: INSULIN GLARGINE SOLOSTAR 100 UNITS/ML 3 ML PEN SC SCH (09:27)
--- NOTE | 2021-04-24 10:37 | Discharge Summary ---
Date of Service April 24, 2021 History of Present Illness Patient is a 40-year-old male who carries a diagnosis of schizoaffective disorder who presents to medical service following an overdose of Seroquel. According to report patient swallowed approximately 20 200 mg Seroquel tablets in an attempt to end his life. Patient has a history of doing so in the past including less than 1 year prior where he attempted suicide via Seroquel under similar circumstances. Patient states that he is not depressed or upset. He denies any psychotic symptoms except for last week in the ICU when patient was delirious. Patient states that he is always struggled with his impulsivity and his anger as he appears to get very upset in the moment and will often do things that he regrets. Patient states that the last time he got into an argument regarding finances on buying a new truck and upon doing so had swallowed the Seroquel and attempt to end his life. Patient states that the circumstances from this were similar as the situation involved following an argument with his . Patient states that he was outside grilling [email or web address] when the propane on the grill ran out. Patient stated that he then turned off the grill figuring he was finished cooking when his presented him with hot dogs to finish filling out. Patient stated that he did not want to go get the other propane tank and refused to do so despite his asking him multiple times to do so. Patient states that he then became very worked up due to the argument that they were having so much so that he did not eat dinner. Patient states that they continue to argue inside the house at which point his left the room for a minute and patient then swallowed these medications as an attempt to end his life. Patient states that approximately half hour after it happened he immediately regretted it and wished he had not taken the medications. Patient then had a stay in the ICU due to the delirium as well as cardiac effects he was experiencing as a result of the high levels of Seroquel. During that time he continued to deny any suicidal ideation, and requested to continue his psychiatric treatment and outpatient basis. Liaison service contacted patient's outpatient psychiatrist who felt the patient would benefit from a stay in order to restart and adjust medications. Patient is presenting calmly and cooperatively and denying any further suicidal ideation. He continues to downplay the severity of his attempt as well as the severity of his impulsivity. Patient stated that he is currently engaged in therapy which he enjoys. He states that he is also engaged in outpatient care to which he is compliant with. He is agreeable to medication changes in order to address his impulsivity as well as continuing his care on an outpatient basis following his discharge from the unit. He was also informed as to some see additional safety measures that can be taken including medication lock boxes and spousal support for medication administration. Patient denies any substance use. Physical Exam Psychiatric Orientation: alert and oriented x 3 Apperance: appropriately groomed Eye Contact: + fair eye contact Motor Behavior: + tremor Speech: + pressured speech Affect: euthymic affect Mood: no depressed mood, no anxious mood and no dysphoric mood Thought Process: goal directed thought process Thought Content: reality based without delusions Suicidal Thoughts: denies suicidal thoughts and denies suicidal plan Homicidal Thoughts: denies homicidal thoughts and denies homicidal plan Hallucinations: no auditory hallucinations and no visual hallucinations Cognition: recent memory grossly intact Estimated Intelligence: consistent with education level Insight: + limited insight Judgement: + limited judgement Vital Signs (Past 24 Hours) Last Vital Signs Temp 36.9 C 04/24/21 09:52 Pulse 94 H 04/24/21 09:52 Resp 18 04/24/21 09:52 BP 117/82 04/24/21 09:52 Pulse Ox 96 04/24/21 09:52 Principal Diagnosis Schizoaffective disorder Psychiatric Data See daily stay summary. In short, safety was maintained, and the patient was cooperative with care. Medication changes included stopping Chantix and mirtazapine and cross tapering from Latuda to risperidone. It was thought that the Latuda was activating and potentially contributing to patient's irritability and impulsivity. Patient tolerated the risperidone well without any side effects. He reported feeling calmer on the medication. [place] level was checked and was found to be in the therapeutic range at 0.8. It was explained to patient that he is still only on a half dose of risperidone and that there is room to go up on the medication should he encounter more struggles with impulsivity or irritability in the community. Patient expressed understanding and agreed to discuss with his outpatient doctor if having reemergence of sympt oms. Patient maintained entire time here and that he was no longer suicidal and that this was an impulsive act done in the moment of an argument. Patient maintained the story for his entire time on the medical floors as well as during his stay here on the psychiatric unit. He has been compliant with medications and has shown to be in good behavioral control. A family session was held and safety plan was completed prior to discharge. Day of Discharge Assessment Today the patient voices readiness for discharge. They note improvement in mood and deny thoughts to harm self or others. Thoughts remain organized and they are improved from admission. There is no evidence of psychosis. They agree to take medications as prescribed and keep follow-up appointments. They are stable for discharge to outpatient level of care. Advance Directives Advance Directives Information Provided: No Advance Directives: No Mental Health Advance Directive: No Advance Directives on File: No Living Will: No Power of Child Study Team Director: No Advance Directives Reason:: Declines as Mental Health Visit. Discharge Data Lab Results 04/22/21 04/22/21 04/22/21 12:21 17:04 20:48 POC Glucose 140 H 128 H 280 H [place] 04/23/21 04/23/21 04/23/21 07:47 08:03 12:46 POC Glucose 105 H 163 H [place] 0.8 04/23/21 04/23/21 04/24/21 17:10 20:37 08:52 POC Glucose 115 H 241 H 277 H [place] Hospital Course (1) Impulsiveness: 40-year-old male who carries a diagnosis of schizoaffective disorder presenting after a impulsive suicide attempt following a argument with his . Patient is now denying symptoms of depression or suicidal ideation, but does acknowledge difficulties with his impulsivity, frustration tolerance, anger. He is agreeable to medication changes in order to address these concerns and he will benefit from inpatient hospitalization for purposes of safety, stabilization, and medication management. (1) Impulsiveness: The patient was admitted to the [facility] ([facility] mental health unit) on every 15 minute checks (behavioral with suicide precautions for safety. The patient will participate in group, recreational, and milieu therapies and will be offered additional individual and family sessions as clinically appropriate. 1patient is taking multiple agents which served to stabilize his mood including Lamictal, lithium, fluoxetine and Latuda. In an effort to combat impulsiveness further, lithium level will be checked tomorrow morning to ensure adequate dosing. Furthermore Latuda will be substituted for risperidone at a dosage of 2 mg p.o. twice daily with first dose of 2 mg starting tonight. We will hold Chantix medication for concern that it is potentially destabilizing patient. 1patient continues to do well denying any suicidal ideation or impulses. We will continue to monitor as patient is uptitrated on risperidone to target dose of 4 mg daily. Continue to hold Chantix. Mental Health & Subst Abuse Tx Psychiatrist Name of Psychiatrist: [facility] - Dr. Flowers Psychiatrist's Date of Appointment with Psychiatrist: 05/26/21 Time of Appointment with Psychiatrist: 7:00 PM Psychiatric Appointment Comment: via Zoom Psychiatrist Release of Information: Obtained, Reviewed and Signed Therapist Name of Therapist: Dr. Nehemias Quinonez Therapist's Date of Therapist Appointment: 04/29/21 Time of Therapist Appointment: 11:00 AM Therapy Appointment Comment: Teletherapy Therapist Release of Information: Obtained, Reviewed and Signed Post Discharge Appointments Primary Care Physician Name Of Family Doctor: [facility] - Dr. Cortez Primary [facility] Date of Appointment with PCP: 05/01/21 Time of Appointment with PCP: 2:00 PM Provider Appointment Comment: [address] [place], [place] [address] [address] Primary Care Release of Information: Obtained, Reviewed and Signed Contact Information Discharge Discharge Address: [address] [place] [id number] Discharge Plan Discharge Items Patient Disposition: Home - Self-Care Reason For Visit: SCHIZOAFFECIVE DISORDER, BIPOLAR TYPE Discharge Diagnosis: Schizoaffective disorder Activity: Resume your previous activity Non-emergency contact: Primary Care Provider, Psychiatrist and Therapist Call non-emergency contact if: you have any medication questions and your symptoms worsen Follow-up/Referrals: Maxine Cortez MD [Primary Care Provider] - Diet: Regular Addtl Attending Provider Instructions: SPECIAL CARE INSTRUCTIONS: 1. Follow through with your scheduled aftercare appointments. If unable to keep an appointment, please call to reschedule. 2. Take your medication only as prescribed. Medication should not be changed or stopped without the approval of your doctor. In the event of worsening symptoms or concerns about side effects, contact your doctor immediately. 3. Utilize new healthy coping skills, anger management skills, and stress management skills learned during your hospitalization. Journal feelings and process them with a support person. Identify stressors or situations that may result in relapse, deterioration or inappropriate behaviors and develop a plan to deal with those issues. 4. If your coping skills are ineffective and you are in crisis, contact your outpatient providers for direction. If unable to reach your providers, please call the [facility] CRISIS LINE AT , go to the [facility] walk-in center at [address], [place], or go to the closest Emergency Room. 5. Avoid alcohol and un-prescribed drugs. 6. You have been provided with the Mental Health Advance Directives Pamphlet for your review. AFTERCARE APPOINTMENTS: * Please call your insurance company prior to your scheduled appointment to confirm your aftercare providers are covered. Take your insurance information to your appointments. WHO TO CALL AND WHEN: Medical Emergencies: For questions or emergencies related to your hospital stay, please contact the Inpatient Behavioral Health Unit at [phone]. A nail welter is on-call 18/04 for the Behavioral Health Unit for emergencies At any time you feel your situation is an emergency, you may also call 911 immediately. Pending Studies at Discharge: No Stand-Alone Forms: My [facility], Smoking Cessation Medications and DC Order Prescriptions: New risperidone 2 mg Tablet 2 mg PO BID Qty: 60 RF: 0 Continued fenofibrate nanocrystallized 145 mg tablet 145 mg PO DAILY Qty: 90 RF: 3 levothyroxine 75 mcg tablet 75 mcg PO DAILY Qty: 90 RF: 1 Novolog U-100 Insulin aspart 100 unit/mL solution See Rx Instructions SQ DAILY 90 Days Qty: 9 RF: 3 cholecalciferol (vitamin D3) 5,000 unit capsule 5,000 units PO DAILY RF: 0 Hold Instructions: Switching to 50,000 IU/week x 12 weeks multivitamin tablet 1 tab PO DAILY RF: 0 lamotrigine 150 mg tablet 150 mg PO BID RF: 0 Linzess 72 mcg capsule 72 mcg PO DAILY RF: 0 [place] 75 mg/mL solution for nebulization 75 mg inhalation TID RF: 0 ipratropium-albuterol 0.5 mg-3 mg(2.5 mg base)/3 mL solution for nebulization 3 ml inhalation BID RF: 0 sodium chloride 3 % solution for nebulization 4 ml inhalation Q8H RF: 0 lithium carbonate 450 mg tablet extended release 450 mg PO HS RF: 0 lithium carbonate [Lithobid] 300 mg tablet extended release 300 mg PO QAM RF: 0 famotidine 20 mg tablet 20 mg PO DAILY RF: 0 Trikafta 100-50-75 mg(d) /150 mg (n) tablets, sequential 3 ea PO DAILY RF: 0 Zenpep 20,000-63,000- 84,000 unit capsule,delayed release(DR/EC) 20,000 cap PO UD RF: 0 colistin (colistimethate Na) 150 mg Recon Soln 75 mg INHALATION BID RF: 0 fluoxetine 20 mg capsule 20 mg PO QAM RF: 0 Discontinued Chantix 1 mg tablet 1 mg PO DAILY RF: 0 Latuda 80 mg tablet 160 mg PO HS RF: 0 quetiapine [Seroquel] 200 mg tablet 200 mg PO HS RF: 0 mirtazapine 15 mg tablet 15 mg PO HS PRN (Reason: sleep) RF: 0 Discharge Orders: Discharge Order (Routine); Ordered 04/24/21 Ordered By: Gamaliel Gordillo Admission Data Admit Date/Time: 04/22/21 10:30 Attending Provider: Gamaliel Gordillo Admit Provider: Gamaliel Gordillo Primary Care Provider: Maxine Cortez Other Interventions: Discharge Summary Assessment (RN) Last Done: 04/24/21 09:52 PSY Interdisciplinary Discharge Planning Last Done: 04/24/21 09:51 Coding Level of Care Code 15933 D/C day mgmt > 30 min Diagnoses Impulsiveness R45.87
== END 2021-04-24 10:54 | disposition home or self-care (01) | DRG 885 ==
LOC: 3S 10:30